=== PATIENT | male | born 1940 | race Caucasian/White ===

== ENCOUNTER 2017-01-18 05:42 | Day surgery (SDC) | payer MEDICARE ==
[2017-01-13 14:22] VITALS: BMI 27.4
[~2017-01-18 05:42] MED LIST: DEXAMETHASONE SOD PHOSPHATE 10 MG/ML 1 ML VIAL IV ONE; HEPARIN SODIUM,PORCINE 5,000 UNIT/ML 1 ML VIAL SQ ONE; HYDROmorphone 0.5 MG/0.5 ML SYRINGE IVP PRN; LACTATED RINGERS 1,000 ML IV SCH; MIDAZOLAM 2 MG/2 ML VIAL IV PRN; ONDANSETRON 4 MG/2 ML VIAL IVP ONE; ceFAZolin 2 GM in SODIUM CHLORIDE 0.9% 100 ML IVPB ONE
[2017-01-18] MEDS ORDERED: LIDOCAINE 1% 20 ML VIAL (10MG/ML) FOR IV START INTRADERMA ONE (06:25)
[2017-01-18 06:41] LABS: INR 1.3 (<1.2); Prothrombin Time 12.8 sec (9.0-12.0)
--- NOTE | 2017-01-18 08:10 | P.GSHP ---
History of Present Illness H&P Date: 01/18/17 Chief Complaint: Right inguinal hernia This is 76-year-old male referred from Dr. Amy solo. Patient had complaints of right inguinal pain. He was seen [facility] found have a reducible right inguinal hernia. 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, History of Any Multi-Drug Resistant Organisms: None Reported Past Surgical History: Cholecystectomy Additional Past Surgical History / Comment(s): cyst removed left testicle, juice cataracts, laser rt eye Past Anesthesia/Blood Transfusion Reactions: No Reported Reaction Smoking Status: Former smoker - Past Family History Mother Family Medical History: No Reported History Medications and Allergies Home Medications Medication Instructions Recorded Confirmed Type Alfuzosin HCl [Uroxatral ER] 10 mg PO DAILY 01/13/17 01/13/17 History Atenolol 6.25 mg PO QAM 01/13/17 01/13/17 History Atorvastatin [Lipitor] 40 mg PO DIRECTED 01/13/17 01/13/17 History Cholecalciferol (Vitamin D3) 2,000 unit PO DAILY 01/13/17 01/13/17 History [Vitamin D3] Diltiazem Cd [Cardizem Cd] 300 mg PO DAILY 01/13/17 01/13/17 History Fluticasone Propionate [Flovent 1 puff INHALATION BID 01/13/17 01/13/17 History Hfa 110mcg] Multivitamins, Thera [Multivitamin 1 tab PO DAILY 01/13/17 01/13/17 History (formulary)] OXcarbazepine [Trileptal] 300 mg PO BID 01/13/17 01/13/17 History Ubidecarenone [Co Q-10] 200 mg PO DAILY 01/13/17 01/13/17 History Warfarin [Coumadin] 2.5 mg PO SUWE 01/13/17 01/13/17 History Warfarin [Coumadin] 5 mg PO MOTUTHFRSA 01/13/17 01/13/17 History Allergies Allergy/AdvReac Type Severity Reaction Status Date / Time No Known Allergies Allergy Verified 01/13/17 14:06 Surgical - Exam Vital Signs Temp Pulse Resp BP Pulse Ox 97.8 F 61 18 171/75 95 01/18/17 06:17 01/18/17 06:17 01/18/17 06:17 01/18/17 06:17 01/18/17 06:17 - General well developed, no distress - Eyes PERRL - ENT normal pinna - Neck no masses - Respiratory normal expansion - Cardiovascular Rhythm: regular - Abdomen Abdomen: soft, non tender Hernia: inguinal - Genitourinary right Results - Labs Abnormal Lab Results - Last 24 Hours (Table) 01/18/17 Range/Units 06:27 PT 12.8 H (9.0-12.0) sec INR 1.3 H (<1.2) Assessment and Plan Plan: Right inguinal hernia. We'll perform laparoscopic robotic assistance repair.
[2017-01-18] MEDS ORDERED: MIDAZOLAM 2 MG/2 ML VIAL ONE (08:14)
[2017-01-18] MEDS ORDERED: ROCURONIUM BROMIDE 10 MG/ML 10 ML VIAL IV ONE (08:14)
[2017-01-18] MEDS ORDERED: GLYCOPYRROLATE 0.2 MG/ML 2 ML VIAL ONE (08:14)
[2017-01-18] MEDS ORDERED: SUCCINYLCHOLINE CHLORIDE 100 MG/5 ML SYR IV ONE (08:14)
[2017-01-18] MEDS ORDERED: NEOSTIGMINE 1 MG/ML 10 ML VIAL ONE (08:14)
[2017-01-18] MEDS ORDERED: HYDROmorphone (PF) 1 MG/ML ONE (08:14)
[2017-01-18] MEDS ORDERED: fentaNYL (PF) 50 MCG/ML 2 ML AMP ONE (08:14)
[2017-01-18] MEDS ORDERED: PROPOFOL 10 MG/ML 20 ML VIAL IV ONE (08:14)
[2017-01-18] MEDS ORDERED: BUPIVACAINE-EPI 0.5%-1:200,000 10 ML VIAL SQ ONE (08:51)
--- NOTE | 2017-01-18 09:37 | P.OP ---
Date of Procedure: 01/18/17 Preoperative Diagnosis: Right inguinal hernia Postoperative Diagnosis: Bilateral inguinal hernia Procedure(s) Performed: Laparoscopic robotic-assisted repair of bilateral inguinal hernia Anesthesia: IMTIAZ Surgeon: Patrick Fishman Estimated Blood Loss (ml): 5 Pathology: none sent Condition: stable Disposition: PACU Description of Procedure: The patient's placed on the operating table in the supine position. The patient received general anesthesia. The patient's abdomen was prepped and draped in usual sterile fashion. The skin was anesthetized 1% local Xylocaine at the incision sites. Using an 11 blade a skin incision was made at the umbilicus. The fascia was grasped with a [place] and then the peritoneal cavity was entered with the Veress needle. Position of the Veress needle was confirmed with a positive drop test. After adequate insufflation a 5 mm trocar was placed into the peritoneal cavity. The Laparoscope was placed the peritoneal cavity. And a robotic 8 mm trocar was placed in the right lateral position and then another 8 mm robotic trochars placed in the left lateral position. The original 5 mm trocar was exchanged for a 12 mm trocar. The patient was placed in reverse Trendelenburg and then the patient was docked to the robot. Next the peritoneum over top of the hernia was incised and then using blunt and sharp dissection and electrocautery the hernia sac was dissected free from the floor of the inguinal canal. The hernia sac was completely reduced into the peritoneal cavity. And then using the Pro media relations specialist mesh the hernia was repaired. The peritoneum was then sutured with 20V lock suture. Next the left inguinal hernia was repaired in identical fashion. The patient was then undocked the robot. The needle was withdrawn from the peritoneal cavity. The umbilical trocar site was closed with 0 Ethibond suture. The skin was closed interrupted 3-0 Monocryl suture. Dermabond dressing was applied. Patient was sent to recovery in stable condition.
[2017-01-18 10:10] VITALS: TEMP 98.2
[2017-01-18] MEDS ORDERED: KETOROLAC 30 MG/ML 1 ML VIAL IVP ONE (10:15)
[2017-01-18] MEDS ORDERED: ONDANSETRON 4 MG/2 ML VIAL IVP ONE (12:03)
[2017-01-18 12:56] VITALS: BP 138/76; PULSE 76; RESP 24
== END 2017-01-18 12:59 | disposition home or self-care (01) ==
LOC: OR 05:42
PROVIDERS: ATTEND Surgery
DX: K40.20 Bilateral inguinal hernia, without obstruction or gangrene, not specified as recurrent (principal); I48.91 Unspecified atrial fibrillation; Z79.01 Long term (current) use of anticoagulants; J45.909 Unspecified asthma, uncomplicated; K21.9 Gastro-esophageal reflux disease without esophagitis; E78.5 Hyperlipidemia, unspecified; I10 Essential (primary) hypertension; N42.9 Disorder of prostate, unspecified; G50.0 Trigeminal neuralgia; Z87.891 Personal history of nicotine dependence; Z79.51 Long term (current) use of inhaled steroids; Z79.899 Other long term (current) drug therapy; Z88.2 Allergy status to sulfonamides
CPT/HCPCS: 85610; 49650; C1781; J2250; J1644; J1100; J2710; J0690; J2405; J3010; J1885; J1170 ×2; J0330; J2704

== ENCOUNTER 2018-07-11 07:36 | Day surgery (SDC) | payer MEDICARE ==
[~2018-07-11 07:36] MED LIST changes: -HYDROmorphone 0.5 MG/0.5 ML SYRINGE IVP PRN; -MIDAZOLAM 2 MG/2 ML VIAL IV PRN; +MORPHINE SULFATE 4 MG/ML SYRINGE IV PRN; -ceFAZolin 2 GM in SODIUM CHLORIDE 0.9% 100 ML IVPB ONE; +ceFAZolin IN SWFI 2 GM/20 ML SYRINGE IVP ONE
[2018-07-11] MEDS ORDERED: LIDOCAINE 1% 20 ML VIAL (10MG/ML) FOR IV START INTRADERMA ONE (08:30)
[2018-07-11] MEDS ORDERED: MIDAZOLAM 2 MG/2 ML VIAL IV ONE (08:40)
--- NOTE | 2018-07-11 08:42 | P.GSHP ---
History of Present Illness H&P Date: 07/11/18 Chief Complaint: Recurrent right inguinal hernia This is a 78-year-old male who presents today for open repair of recurrent right inguinal hernia. Patient developed a tender mass in his right groin. 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 cyst removed left testicle, juice cataracts, laser rt eye Past Anesthesia/Blood Transfusion Reactions: No Reported Reaction Past Psychological History: No Psychological Hx Reported Smoking Status: Former smoker Past Alcohol Use History: Occasional Additional Past Alcohol Use History / Comment(s): quit smoking 2001, smoked for 40 yrs, 1 PPD Past Drug Use History: None Reported - Past Family History Mother Family Medical History: No Reported History Medications and Allergies Home Medications Medication Instructions Recorded Confirmed Type Alfuzosin HCl [Uroxatral ER] 5 mg PO QAM 01/13/17 07/07/18 History Atenolol 6.25 mg PO QAM 01/13/17 07/07/18 History Atorvastatin [Lipitor] 40 mg PO HS 01/13/17 07/07/18 History Cholecalciferol (Vitamin D3) 2,000 unit PO DAILY 01/13/17 07/07/18 History [Vitamin D3] Diltiazem Cd [Cardizem Cd] 300 mg PO QAM 01/13/17 07/07/18 History Fluticasone Propionate [Flovent 2 puff INHALATION BID 01/13/17 07/07/18 History Hfa 110mcg] Multivitamins, Thera [Multivitamin 1 tab PO DAILY 01/13/17 07/07/18 History (formulary)] OXcarbazepine [Trileptal] 450 mg PO QAM 01/13/17 07/07/18 History Ubidecarenone [Co Q-10] 200 mg PO DAILY 01/13/17 07/07/18 History Warfarin [Coumadin] 5 mg PO QAM 01/13/17 07/07/18 History Gabapentin [Neurontin] 300 mg PO HS 07/07/18 07/07/18 History Ibuprofen [Advil] 200 - 400 mg PO Q6HR PRN 07/07/18 07/07/18 History Sennosides [Senna] 8.6 mg PO DAILY PRN 07/07/18 07/07/18 History Allergies Allergy/AdvReac Type Severity Reaction Status Date / Time Sulfa (Sulfonamide Allergy Dyspnea Verified 07/11/18 08:15 Antibiotics) Surgical - Exam - General well developed, well nourished, no distress - Eyes PERRL - ENT normal pinna - Neck no masses - Respiratory normal expansion - Cardiovascular Rhythm: regular - Abdomen Abdomen: soft, non tender Hernia: inguinal (Recurrent right inguinal hernia) Assessment and Plan Assessment: Recurrent right internal hernia. We'll perform open repair.
[2018-07-11 08:51] LABS: Prothrombin Time 10.7 sec (9.0-12.0)
--- NOTE | 2018-07-11 08:54 | P.ONQ ---
Anesthesiology Proc Note - PNB - Peripheral Nerve Block Performed Right Transversus Abdominis Single Time Out Performed: Yes ([id number]) Procedure Start Time: 08:40 Procedure Stop Time: 08:48 Indication: Acute Post-Operative Pain, Dx/Pain Location (Abdominal pain), Requested by physician Sedation Type: Sedate with meaningful contact maintained Preparation: Sterile Prep Catheter: None Needle Types: On-Q Needle Size: 100mm (4") Needle Gauge: 21 Technique: Ultrasound Injectate: Other (see comment) (15ml 0.5% Ropivacaine + 10ml 2% Lidocaine with epi + 4mg Decadron) Blood Aspirated: No Pain Paresthesia on Injection Noted: No Resistance on Injection: Normal Events: Uneventful and Well Tolerated
[2018-07-11] MEDS ORDERED: KETOROLAC 30 MG/ML 1 ML VIAL ONE (09:15)
[2018-07-11] MEDS ORDERED: ePHEDrine SULFATE/0.9% NACL/PF 50 MG/5 ML SYRINGE IV ONE (09:15)
[2018-07-11] MEDS ORDERED: NEOSTIGMINE 1 MG/ML 10 ML VIAL ONE (09:15)
[2018-07-11] MEDS ORDERED: GLYCOPYRROLATE 0.2 MG/ML 2 ML VIAL ONE (09:15)
[2018-07-11] MEDS ORDERED: MIDAZOLAM 2 MG/2 ML VIAL ONE (09:15)
[2018-07-11] MEDS ORDERED: ROPIVACAINE 5 MG/ML 30 ML VIAL ONE (09:15)
[2018-07-11] MEDS ORDERED: ROCURONIUM BROMIDE 10 MG/ML 10 ML VIAL IV ONE (09:15)
[2018-07-11] MEDS ORDERED: fentaNYL (PF) 50 MCG/ML 2 ML AMP ONE (09:15)
[2018-07-11] MEDS ORDERED: PROPOFOL 10 MG/ML 20 ML VIAL IV ONE (09:15)
[2018-07-11] MEDS ORDERED: SUCCINYLCHOLINE CHLORIDE 100 MG/5 ML SYR IV ONE (09:15)
[2018-07-11] MEDS ORDERED: LIDOCAINE 1% INJ 10MG/ML (20 ML MDV) ONE (09:15)
[2018-07-11] MEDS ORDERED: BUPIVACAIN-EPI 0.5%-1:200,000 30 ML VIAL SQ ONE ×2 (09:34→09:54)
[2018-07-11 10:10] VITALS: TEMP 97.7
[2018-07-11] MEDS: HYDROmorphone 0.5 MG/0.5 ML SYRINGE IVP PRN ×2 (10:21→10:31)
[2018-07-11 10:49] VITALS: RESP 18
[2018-07-11 11:33] VITALS: BP 115/68; PULSE 54
--- NOTE | 2018-07-11 11:39 | P.OP ---
Date of Procedure: 07/11/18 Preoperative Diagnosis: Recurrent right inguinal hernia Postoperative Diagnosis: Recurrent right inguinal hernia Procedure(s) Performed: Open repair of recurrent right inguinal hernia Anesthesia: IMTIAZ Surgeon: Patrick Fishman Estimated Blood Loss (ml): 5 Pathology: none sent Condition: stable Disposition: PACU Description of Procedure: DESCRIPTION OF PROCEDURE: The patient was placed in the supine position after receiving adequate anesthesia. Patients groin was prepped and draped in the usual sterile fashion. A standard hernia incision was made and the subcutaneous tissues were divided with electrocautery. The fascia of the external oblique was exposed. A susan the fascia was made with #15 blade. The fascia was then opened with pair of Metzenbaum scissors. A Weitlaner retractor was placed in the wound and the cord structures were grasped and dissected free from the inguinal canal. A rubber Marcial drain was placed around the cord structures. The hernial sac was seen on the anterior-medial portion of the cord and this was dissected free from the cord. The hernia sac was then invaginated to the peritoneal cavity. Using blunt finger dissection, the preperitoneal space was dissected and then the Prolene hernial mesh plug was placed into the prepared space. The inferior leaf was expanded. The superior leaf was secured to the pubic tubercle using 2-0 Prolene suture. The lateral portion of the superior leaf was incised and cords tied and secured to the transversalis fascia using 2-0 Prolene suture. Fascia of the external oblique was then closed using #0 Vicryl suture. The Marcial drain was removed. The Scarpas fascia was then closed with 3-0 Vicryl suture and skin was closed with earl. The patient tolerated the procedure well.
== END 2018-07-11 12:32 | disposition home or self-care (01) ==
LOC: OR 07:36
PROVIDERS: ATTEND Surgery
DX: K40.91 Unilateral inguinal hernia, without obstruction or gangrene, recurrent (principal); I48.91 Unspecified atrial fibrillation; J45.909 Unspecified asthma, uncomplicated; K21.9 Gastro-esophageal reflux disease without esophagitis; E78.5 Hyperlipidemia, unspecified; I10 Essential (primary) hypertension; Z90.49 Acquired absence of other specified parts of digestive tract; N42.9 Disorder of prostate, unspecified; G50.0 Trigeminal neuralgia; Z87.891 Personal history of nicotine dependence; Z79.01 Long term (current) use of anticoagulants; Z79.51 Long term (current) use of inhaled steroids; Z79.899 Other long term (current) drug therapy; Z88.2 Allergy status to sulfonamides
CPT/HCPCS: 64486; 85610; 49520; C1781; J2250; J1644; J1100; J2710; J2405; J2001; J3010; J1885; J2795; J0330; J2704; J1170; J0690

== ENCOUNTER → 2019-10-24 | Outpatient (CLI) | payer MEDICARE ==
[2019-10-24 11:45] LABS: Basophils % (A) 1 %; Eosinophils # (A) 0.1 k/uL (0-0.7); Eosinophils % (A) 5 %; HCT 41.9 % (39.0-53.0); HGB 13.9 gm/dL (13.0-17.5); Lymphocytes # (A) 0.6 k/uL (1.0-4.8); Lymphocytes % (A) 22 %; MCH 31.3 pg (25.0-35.0); MCHC 33.1 g/dL (31.0-37.0); MCV 94.6 fL (80.0-100.0); Mean Platelet Volume 6.9; Monocytes # (A) 0.4 k/uL (0-1.0); Monocytes % (A) 14 %; Neutrophils # (A) 1.4 k/uL (1.3-7.7); Neutrophils % (A) 55 %; Platelet Count 246 k/uL (150-450); RBC 4.43 m/uL (4.30-5.90); RDW 13.3 % (11.5-15.5); WBC 2.6 k/uL (3.8-10.6)
== END | disposition home or self-care (01) ==
LOC: LABPAT 09:06
PROVIDERS: ATTEND Surgery
DX: Z01.818 Encounter for other preprocedural examination (principal); K43.0 Incisional hernia with obstruction, without gangrene
CPT/HCPCS: 36415; 85025; 93005

== ENCOUNTER 2019-10-31 08:38 | Day surgery (SDC) | payer MEDICARE ==
[2019-10-29 10:59] VITALS: BMI 28.3
[~2019-10-31 08:38] MED LIST changes: +ACETAMINOPHEN TAB 500 MG TAB PO ONE; +HYDROmorphone 0.5 MG/0.5 ML SYRINGE IVP PRN; +LIDOCAINE 1% (10MG/ML) FOR IV START INTRADERMA PRN; +MIDAZOLAM 2 MG/2 ML VIAL IV PRN; -MORPHINE SULFATE 4 MG/ML SYRINGE IV PRN; -ceFAZolin IN SWFI 2 GM/20 ML SYRINGE IVP ONE; +fentaNYL (PF) 50 MCG/ML 2 ML AMP IVP PRN
[2019-10-31] MEDS ORDERED: ONDANSETRON 4 MG/2 ML VIAL ONE ×2 (09:06→14:42)
[2019-10-31] MEDS ORDERED: ACETAMINOPHEN TAB 500 MG TAB ONE (09:06)
[2019-10-31] MEDS ORDERED: HEPARIN SODIUM,PORCINE 5,000 UNIT/ML 1 ML VIAL ONE (09:06)
[2019-10-31] MEDS ORDERED: LACTATED RINGERS 1,000 ML IV ONE ×3 (09:22→12:40)
[2019-10-31] MEDS ORDERED: LIDOCAINE 1% (10MG/ML) FOR IV START INTRADERMA ONE (09:23)
--- NOTE | 2019-10-31 09:34 | P.GSHP ---
History of Present Illness H&P Date: 10/31/19 Chief Complaint: Incisional hernia hernia This a 71-year-old male has developed an incisional hernia at his umbilicus. Patient rents today for laparoscopic robotic-assisted repair. Past Medical History Past Medical History: Atrial Fibrillation, Asthma, GERD/Reflux, Hyperlipidemia, Hypertension, Osteoarthritis (OA), Prostate Disorder, Sleep Apnea/CPAP/BIPAP Additional Past Medical History / Comment(s): Trigeminal nerve pain rt side of face. CPAP use as needed. History of Any Multi-Drug Resistant Organisms: None Reported Past Surgical History: Cholecystectomy, Hernia Repair Additional Past Surgical History / Comment(s): BILATERAL INGUINALREPAIRS, cyst removed from left testicle, bilateral cataracts removed, laser right eye tatum phillip. Past Anesthesia/Blood Transfusion Reactions: No Reported Reaction Past Psychological History: No Psychological Hx Reported Smoking Status: Former smoker Past Alcohol Use History: Occasional Additional Past Alcohol Use History / Comment(s): Quit smoking 2001, smoked for 40 yrs, 1 PPD. Past Drug Use History: None Reported - Past Family History Mother Family Medical History: No Reported History Medications and Allergies Home Medications Medication Instructions Recorded Confirmed Type Alfuzosin HCl [Uroxatral ER] 5 mg PO QAM 01/13/17 10/31/19 History Atorvastatin [Lipitor] 40 mg PO Q48H 01/13/17 10/31/19 History Diltiazem Cd [Cardizem Cd] 300 mg PO QAM 01/13/17 10/31/19 History Fluticasone Propionate [Flovent 2 puff INHALATION BID 01/13/17 10/31/19 History Hfa 110mcg] OXcarbazepine [Trileptal] 450 mg PO QAM 01/13/17 10/31/19 History Warfarin [Coumadin] 5 mg PO QAM 01/13/17 10/31/19 History Ibuprofen [Advil] 200 - 400 mg PO Q6HR PRN 07/07/18 10/31/19 History Sennosides [Senna] 8.6 mg PO DAILY PRN 07/07/18 10/31/19 History Acetaminophen [Tylenol Extra 500 mg PO Q4H PRN 10/29/19 10/31/19 History Strength] Atenolol 25 mg PO QAM 10/29/19 10/31/19 History Ergocalciferol [Vitamin D2] 50,000 unit PO FR 10/29/19 10/31/19 History Gabapentin [Neurontin] 400 mg PO HS 10/29/19 10/31/19 History Allergies Allergy/AdvReac Type Severity Reaction Status Date / Time Sulfa (Sulfonamide Allergy Dyspnea Verified 10/29/19 10:37 Antibiotics) Surgical - Exam Vital Signs Temp Pulse Resp BP Pulse Ox 96.4 F L 66 16 171/75 96 10/31/19 09:09 10/31/19 09:09 10/31/19 09:09 10/31/19 09:09 10/31/19 09:09 - General well developed, well nourished, no distress - Eyes PERRL - ENT normal pinna - Neck no masses - Respiratory normal expansion - Cardiovascular Rhythm: regular - Abdomen Abdomen: soft, non tender Hernia: incisional (3 cm incisional hernia) Assessment and Plan Assessment: Incisional hernia. We'll perform laparoscopic robotic-assisted repair.
[2019-10-31] MEDS ORDERED: PROPOFOL 10 MG/ML 20 ML VIAL IV ONE (11:36)
[2019-10-31] MEDS ORDERED: GLYCOPYRROLATE 0.2 MG/ML 2 ML VIAL ONE (11:36)
[2019-10-31] MEDS ORDERED: ROCURONIUM BROMIDE 10 MG/ML 5 ML VIAL IV ONE (11:36)
[2019-10-31] MEDS ORDERED: LIDOCAINE 1% INJ 10MG/ML (20 ML MDV) ONE (11:36)
[2019-10-31] MEDS ORDERED: SUCCINYLCHOLINE CHLORIDE 100 MG/5 ML SYR IV ONE (11:36)
[2019-10-31] MEDS ORDERED: HYDROmorphone (PF) 1 MG/ML ONE (11:36)
[2019-10-31] MEDS ORDERED: fentaNYL (PF) 50 MCG/ML 2 ML AMP ONE (11:36)
[2019-10-31] MEDS ORDERED: MIDAZOLAM 2 MG/2 ML VIAL ONE (11:36)
[2019-10-31] MEDS ORDERED: NEOSTIGMINE 1 MG/ML 10 ML VIAL ONE (11:36)
[2019-10-31] MEDS ORDERED: BUPIVACAIN-EPI 0.25%-1:200,000 30 ML VIAL SQ ONE (12:05)
--- NOTE | 2019-10-31 12:36 | P.OP ---
Date of Procedure: 10/31/19 Preoperative Diagnosis: Incisional hernia Postoperative Diagnosis: Incisional hernia Procedure(s) Performed: Laparoscopic robotic-assisted repair of incisional hernia Anesthesia: IMTIAZ Surgeon: Patrick Fishman Estimated Blood Loss (ml): 5 Pathology: none sent Condition: stable Disposition: PACU Description of Procedure: The patient was placed on the operating table in the supine position. He received general anesthesia. His abdomen was prepped and draped usual fashion. Using a 5 mm optical trocar under direct visualization the peritoneal cavity was entered in the left upper quadrant. The abdomen was then insufflated. The laparoscope was placed back into the perineal cavity. Next a 8 mm robotic trocar was placed in the left lower quadrant and a 12 mm robotic trocar was placed in the left lateral position. The original 5 mm trocar was exchanged for a 8 mm robotic trocar. The patient's placed in the left side up position. And the patient was docked to the robot. The incisional hernia was visualized. Using hook cautery the peritoneum over the incisional hernia was excised. The fascial opening was repaired using 0V LOC suture. Next a piece of 11 cm round ventral light ST mesh was placed into the. Cavity and secured with 2 OV lock suture. The patient was undocked the robot. The needles were retrieved. The fascia of the 12 mm trocar site was closed with 0 Ethibond suture. Skin was closed interrupted 3-0 Monocryl suture. Dermabond dressings was applied. Patient tolerated procedure well and was sent to recovery room stable condition.
[2019-10-31] MEDS ORDERED: HYDROmorphone 1 MG/ML 1 ML SYRINGE IVP ONE ×2 (12:50→13:10)
[2019-10-31] MEDS ORDERED: fentaNYL (PF) 50 MCG/ML 2 ML AMP IVP ONE (13:27)
[2019-10-31] MEDS ORDERED: HYDROcodone/APAP 5-325MG 1 EACH TAB PO ONE (14:01)
[2019-10-31 14:23] LABS: HCT 41.8 % (39.0-53.0); HGB 13.9 gm/dL (13.0-17.5); MCH 31.4 pg (25.0-35.0); MCHC 33.3 g/dL (31.0-37.0); MCV 94.4 fL (80.0-100.0); Mean Platelet Volume 7.7; Platelet Count 274 k/uL (150-450); RBC 4.43 m/uL (4.30-5.90); RDW 13.2 % (11.5-15.5); WBC 3.4 k/uL (3.8-10.6)
[2019-10-31] MEDS ORDERED: ONDANSETRON 4 MG/2 ML VIAL IVP ONE (14:45)
[2019-11-02 06:13] VITALS: BP 155/89; PULSE 63; RESP 16; TEMP 98.2
== END 2019-10-31 15:30 | disposition home or self-care (01) ==
LOC: OR 08:38
PROVIDERS: ATTEND Surgery
DX: K43.2 Incisional hernia without obstruction or gangrene (principal); I48.91 Unspecified atrial fibrillation; J45.909 Unspecified asthma, uncomplicated; K21.9 Gastro-esophageal reflux disease without esophagitis; E78.5 Hyperlipidemia, unspecified; I10 Essential (primary) hypertension; M19.90 Unspecified osteoarthritis, unspecified site; N42.9 Disorder of prostate, unspecified; G47.33 Obstructive sleep apnea (adult) (pediatric); G50.0 Trigeminal neuralgia; Z99.89 Dependence on other enabling machines and devices; Z90.49 Acquired absence of other specified parts of digestive tract; Z98.890 Other specified postprocedural states; Z87.19 Personal history of other diseases of the digestive system; Z87.438 Personal history of other diseases of male genital organs; Z98.41 Cataract extraction status, right eye; Z98.42 Cataract extraction status, left eye; Z87.891 Personal history of nicotine dependence; Z79.899 Other long term (current) drug therapy; Z79.51 Long term (current) use of inhaled steroids; Z79.01 Long term (current) use of anticoagulants; Z88.2 Allergy status to sulfonamides; Z97.2 Presence of dental prosthetic device (complete) (partial)
CPT/HCPCS: 49654; 85027; C1781; J2250; J1644; J2710; J0690; J2405; J2001; J3010; J1170; J0330; J2704

== ENCOUNTER → 2019-12-19 | Outpatient (CLI) | payer MEDICARE ==
--- NOTE | 2019-12-20 07:53 | US ---
EXAMINATION TYPE: US scrotum with doppler. TECHNIQUE: Grayscale and color Doppler Duplex imaging performed of the scrotum. DATE OF EXAM: 12/19/2019 COMPARISON: NONE CLINICAL HISTORY: 79-year-old male N43.3 Hydrocele. The patient states history of left sided hydrocel e for 30+ years FINDINGS: EXAM MEASUREMENTS: TESTICLES: Right Testicle: 2.8 x 1.7 x 1.4 cm, smaller in size with a 1.6 cm isoechoic to echogenic lesion with some irregular central hypoechogenicity located within the testicle. Left Testicle: 4.0 x 3.1 x 2.9 cm EPIDIDYMIS HEAD: Right Epididymis: 0.7 cm Left Epididymis: not seen Doppler performed to assess for testicular vascularity; good bilateral color flow and waveforms are s een. There is no evidence of testicular torsion. Presence of hydroceles: yes, moderate to large sized, septated on the left Presence of varicoceles: no IMPRESSION: 1. Asymmetrically smaller right testicle. There is a 1.6 cm mass within the testicle. Epidermoid cyst , intratesticular hematoma (if recent injury), segmental testicular infarct, granuloma, or carcinoma are differential considerations. Further urology evaluation recommended. 2. No sonographic evidence for testicular torsion. 3. Moderate to large complex left-sided hydrocele.
== END | disposition home or self-care (01) ==
LOC: RADUSWWP 15:56
PROVIDERS: ATTEND Surgery
DX: N43.3 Hydrocele, unspecified (principal)
CPT/HCPCS: 76870; 93975

== ENCOUNTER → 2021-03-20 | Outpatient (CLI) | payer MEDICARE ==
--- NOTE | 2021-03-20 11:25 | US ---
EXAMINATION TYPE: US scrotum with doppler. Grayscale and color Doppler Duplex imaging performed of t he scrotum. 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 history of hydrocele left testicle an d mass right testicle EXAM MEASUREMENTS: TESTICLES: Right Testicle: 2.7 x 1.4 x 2.0 cm Left Testicle: 5.0 x 2.8 x 3.2 cm EPIDIDYMIS HEAD: Right Epididymis: 0.9 cm Left Epididymis: not seen Doppler performed to assess for testicular vascularity; good bilateral color flow and waveforms are s een. *isoechoic/echogenic heterogeneous area right testicle = 1.2 x 1.0 x 1.5cm cystic areas within left scrotal region with largest = 4.2 x 5.0 x 4.1cm Presence of hydroceles: yes, fluid collection = 3.5cm left testicle Presence of varicoceles: no Stable asymmetrically smaller right testicle with round hyperechoic 1.2 cm intratesticular lesion red emonstrated without significant internal vascularity. Left testicle normal in size without focal intr atesticular mass. Persistent left scrotal fluid collection or hydrocele redemonstrated. Large thin-wa lled cysts in the left-sided epididymis again seen superior to left testicle. Comparison images show blood flow bilaterally more prominent on the left. IMPRESSION: Overall stable findings. Persistent left scrotal fluid collection or hydroceles without s ignificant interval change. Local mass effect redemonstrated. Normal Left epididymis not seen with ce rtainty. Persistent asymmetrically diminished size to right testicle with stable 1.5 cm avascular hyp erechoic area or mass. Differential includes epidermoid cyst, granuloma, old infarct, and carcinoma l ess likely but not excluded. Correlate clinically and with tumor markers.
== END | disposition home or self-care (01) ==
LOC: RADUSWWP 09:21
PROVIDERS: ATTEND Urology
DX: N50.89 Other specified disorders of the male genital organs (principal); D29.20 Benign neoplasm of unspecified testis
CPT/HCPCS: 76870; 93975

== ENCOUNTER → 2021-07-16 | Outpatient (CLI) | payer MEDICARE ==
--- NOTE | 2021-07-16 14:35 | P.CON ---
Consult Note - . Consult date: 07/16/21 Assessment/Plan:: HISTORY OF PRESENT ILLNESS: 81 yr old male presents with female inserter at side as a referral from Dr Crump/ Amy Dawson for R sided facial pain x 5 yrs secondary to R Trigeminal Neuralgia for an evaluation. Patient states his right-sided facial pain is 2 out of 10 in intensity, electric, "hit by a taser" sensation that waxes and wanes in intensity throughout the day. Pain has no provocative factors. Pain is relieved with medications (oxycodone, Neurontin), heat and acupuncture. Past Medical History: Asthma, Vitamin D Deficiency, CVA/TIA, GERD/Reflux, Hyperlipidemia, Hypertension, aFib, PVD, Prostate Disorder Past Surgical History: Bl Inguinal Hernia Repair, Left Testicle Cystectomy, BL Cataract Resections, R Eye Laser Treatment Social History: Current some day smoker, Occassional ETOH, No illict drug use. Lives with female inserter. Family History: Mother- No Reported History. Father- Myocardial Infarction ([place]) All: See list Meds: See list REVIEW OF ORGAN SYSTEMS: CONSTITUTIONAL: No fevers or chills. No recent weight loss. HEENT: No visual acuity loss, eye pain, difficulties with hearing. No nosebleeds. No difficulty swallowing. RESPIRATORY: Denies any troubles with breathing or dyspnea on exertion. CARDIOVASCULAR: Denies any chest pain, palpitations, or recent heart attacks. GASTROINTESTINAL: Denies fatty food intolerance. Has change in bowel habits and gas bloat. GENITOURINARY: Denies any blood in urine. Has increased urinary frequency. NEUROLOGICAL: + numbness and tingling along the distal extremities. No seizure disorders or headaches. MUSCULOSKELETAL: + back pain SKIN: No skin cancer. No rash. PSYCHIATRIC: Denies current depression or suicidal thoughts. ENDOCRINE: Denies current thyroid disorders. Denies any blood sugar glucose intolerance. HEME/LYMPHATIC: Denies any lumps and bumps around the neck. History of deep venous thrombosis. ALLERGY/IMMUNOLOGY: No immunoglobulin therapy. No immune deficiencies. BREAST: Denies current breast lumps, pain or nipple discharge. Physical Examinations : Constitutional : Cooperative , not in acute distress . HEENT: Neck supple. No Lymphadenopathy. Normal thyroid size . Eyes no ptosis , no icterus, no photophobia . Hearing intact. Normal oropharynx. No Thrush. Respiratory : Chest clear to auscultations bilaterally. No wheezing. No rhonchi. Cardiovascular : Regular rate and rhythm , S1 / S2. No S3 . No S4. Gastrointestinal : Abdomen soft. No tenderness. Bowel sounds x 4. No organomegaly . Genitourinary : Deferred. Neurologic : Cranial nerve II to XII intact. No focal neurological deficits. Psychiatric : alert & oriented x 3. Matching mood & appropriate affect. Judgment & insight intact. Lymphatic No Lymphadenopathy. Musculoskeletal : Cervical Spine Motor strength in the deltoid and biceps: Normal right side. Normal Left side Motor strength biceps and the wrist extensors: Normal right side . Normal left side Motor strength in the triceps muscle: Normal right side. Normal left side Deep tendon reflexes: Normal at the biceps. Normal at Brachioradialis. Normal at triceps Cervical facet loading test: positive bilaterally Spurling test: positive bilaterally Neck distraction test: positive bilaterally Vernon sign: positive bilaterally Lumbar spine Motor strength lower extremities ,thigh and legs 5/5 Right side , 5/5 Left side Deep tendon reflexes : Normal Knee Jerk. Normal Ankle Jerk Vertebral body tenderness over Lumbar facet Loading Test: positive Right / positive Left Range of motion of the lumbar spine Flexion 30 degrees, extension 10 degrees Straight Leg Raise test: Left/ Right positive at degree Barry test: positive right / positive left. Severe tenderness over the Sacroiliac joint on the Right / Left sides Gaenslen test: positive bilaterally Seated flexion test: positive bilaterally. Imaging: CT Angiogram of the Head and Neck from 01/14/20 reviewed. Assessment/ Plan : Recommendation of R Trigeminal Nerve Block. May need a series of injections to obtain optimal pain relief. Risks, benefits of procedure discussed and patient verbalized understanding. Denies medical history of diabetes. Admits to Coumadin use. Needs medical clearance to hold Coumadin prior to procedure. All questions answered. I have spent greater than 50 minutes on patient care today. Dr Reynoso was available by phone for the evaluation of this patient. The time was used to review the medical records including relevant urine studies and Prescription history (MAPs), review of the available imaging, evaluation and examination of the patient, coordination of care with the medical staff and if applicable referring physicians, as well as creation of the medical record PQRS Measure Charge Sheet PQRS Narrative: Smoking Status Former smoker Home Medications: Ambulatory Orders Alfuzosin HCl [Uroxatral ER] 10 mg PO QAM 01/13/17 Atorvastatin [Lipitor] 40 mg PO MOWETHSA 01/13/17 Diltiazem Cd [Cardizem CD] 300 mg PO QAM 01/13/17 Fluticasone Propionate [Flovent Hfa 110 mcg] 2 puff INHALATION RT-BID 01/13/17 OXcarbazepine [Trileptal] 300 mg PO TID 01/13/17 Warfarin [Coumadin] 5 mg PO HS 01/13/17 Acetaminophen [Tylenol Extra Strength] 500 mg PO Q4H PRN 10/29/19 Ergocalciferol [Vitamin D2 (DRISDOL)] 50,000 unit PO FR 10/29/19 Gabapentin [Neurontin] 400 mg PO TID 10/29/19 atenoloL 25 mg PO QAM 10/29/19 Aspirin 325 mg PO DAILY #90 tab 01/16/20 Pantoprazole Sodium [Protonix] 40 mg PO DAILY #30 tablet. 01/16/20
[2021-07-16 15:47] VITALS: BP 163/91; PULSE 62; RESP 18; TEMP 98
== END ==
LOC: PNWHC3 12:34
PROVIDERS: ATTEND Specialist
DX: G50.0 Trigeminal neuralgia (principal); J45.909 Unspecified asthma, uncomplicated; Z86.73 Personal history of transient ischemic attack (TIA), and cerebral infarction without residual deficits; E78.5 Hyperlipidemia, unspecified; I10 Essential (primary) hypertension; I48.91 Unspecified atrial fibrillation; Z86.79 Personal history of other diseases of the circulatory system; Z87.891 Personal history of nicotine dependence; Z88.2 Allergy status to sulfonamides
CPT/HCPCS: 99202; 99211

== ENCOUNTER → 2023-07-28 | Outpatient (CLI) | payer MEDICARE ==
[2023-07-28 10:19] VITALS: BP 149/87; PULSE 69; RESP 16; TEMP 97.6
--- NOTE | 2023-07-28 13:59 | P.PAINPG ---
PQRS Measure Charge Sheet Comment: HISTORY OF PRESENT ILLNESS: A 83 yr old male presents with female civil engineering designer at side for R sided facial pain > 2 yrs secondary to trigeminal neuralgia for an evaluation. Pt states pain is provoked at 8 /10 in intensity, predominantly axial, electric in character that waxes and wanes in intensity throughout the day, w occasional radiation of pain towards the R eye, nose and jaw. Pain has no provocative factors. Pain is relieved with acupuncture weekly x 2 yrs since Jun 2021 which ended in Jun 2023, medications, heat and acupuncture. Interventional procedures include DENIES Medications include Oxycodone, Neurontin 600mg #60 REVIEW OF ORGAN SYSTEMS: CONSTITUTIONAL: No fevers or chills. No recent weight loss. HEENT: No visual acuity loss, eye pain, difficulties with hearing. No nosebleeds. No difficulty swallowing. RESPIRATORY: Denies any troubles with breathing or dyspnea on exertion. CARDIOVASCULAR: Denies any chest pain, palpitations, or recent heart attacks. GASTROINTESTINAL: Denies fatty food intolerance. Has change in bowel habits and gas bloat. GENITOURINARY: Denies any blood in urine. Has increased urinary frequency. NEUROLOGICAL: + numbness and tingling along the distal extremities. No seizure disorders or headaches. MUSCULOSKELETAL: + back pain SKIN: No skin cancer. No rash. PSYCHIATRIC: Denies current depression or suicidal thoughts. ENDOCRINE: Denies current thyroid disorders. Denies any blood sugar glucose intolerance. HEME/LYMPHATIC: Denies any lumps and bumps around the neck. History of deep venous thrombosis. ALLERGY/IMMUNOLOGY: No immunoglobulin therapy. No immune deficiencies. BREAST: Denies current breast lumps, pain or nipple discharge. Physical Examinations : Constitutional : Cooperative , not in acute distress . HEENT: Neck supple. No Lymphadenopathy. Normal thyroid size . Eyes no ptosis , no icterus, no photophobia . Hearing intact. Normal oropharynx. No Thrush. Respiratory : Chest clear to auscultations bilaterally. No wheezing. No rhonchi. Cardiovascular : Regular rate and rhythm , S1 / S2. No S3 . No S4. Gastrointestinal : Abdomen soft. No tenderness. Bowel sounds x 4. No organomegaly . Genitourinary : Deferred. Neurologic : Cranial nerve II to XII intact. No focal neurological deficits. Psychiatric : alert & oriented x 3. Matching mood & appropriate affect. Judgment & insight intact. Lymphatic No Lymphadenopathy. Musculoskeletal : Cervical Spine Motor strength in the deltoid and biceps: Normal right side. Normal Left side Motor strength biceps and the wrist extensors: Normal right side . Normal left side Motor strength in the triceps muscle: Normal right side. Normal left side Deep tendon reflexes: Normal at the biceps. Normal at Brachioradialis. Normal at triceps Cervical facet loading test: positive bilaterally Spurling test: positive bilaterally Neck distraction test: positive bilaterally Vernon sign: positive bilaterally Lumbar spine Motor strength lower extremities ,thigh and legs 5/5 Right side , 5/5 Left side Deep tendon reflexes : Normal Knee Jerk. Normal Ankle Jerk Vertebral body tenderness over Lumbar facet Loading Test: positive Right / positive Left Range of motion of the lumbar spine Flexion 30 degrees, extension 10 degrees Straight Leg Raise test: Left/ Right po sitive at degree Barry test: positive right / positive left. Severe tenderness over the Sacroiliac joint on the Right / Left sides Gaenslen test: positive bilaterally Seated flexion test: positive bilaterally. Imaging: CT Angiogram of the Head and Neck from 01/14/20 reviewed. Assessment/ Plan : Recommendation of R Trigeminal Nerve Block #1. May need a series of injections to obtain optimal pain relief. Risks, benefits of procedure discussed and patient verbalized understanding. Denies medical history of diabetes. Admits to Coumadin use. Needs medical clearance from Dr Chapman to hold Coumadin prior to procedure. All questions answered. I have spent greater than 30 minutes on patient care today. Dr Reynoso was available by phone for the evaluation of this patient. The time was used to review the medical records including relevant urine studies and Prescription history (MAPs), review of the available imaging, evaluation and examination of the patient, coordination of care with the medical staff and if applicable referring physicians, as well as creation of the medical record PQRS Narrative: Smoking Status Former smoker Hx Alcohol Use (MH) No Home Medications: Ambulatory Orders Alfuzosin HCl [Uroxatral ER] 10 mg PO QAM 01/13/17 Atorvastatin [Lipitor] 40 mg PO MOWETHSA 01/13/17 Diltiazem Cd [Cardizem CD] 300 mg PO QAM 01/13/17 Fluticasone Propionate [Flovent Hfa 110 mcg] 2 puff INHALATION RT-BID 01/13/17 OXcarbazepine [Trileptal] 300 mg PO TID 01/13/17 Warfarin [Coumadin] 5 mg PO HS 01/13/17 Acetaminophen [Tylenol Extra Strength] 500 mg PO Q4H PRN 10/29/19 Ergocalciferol [Vitamin D2 (DRISDOL)] 50,000 unit PO FR 10/29/19 Gabapentin [Neurontin] 400 mg PO TID 10/29/19 atenoloL 25 mg PO QAM 10/29/19 Aspirin 325 mg PO DAILY #90 tab 01/16/20 Pantoprazole Sodium [Protonix] 40 mg PO DAILY #30 tablet. 01/16/20 Controlled Substance Measures - Controlled Substance Measures Is patient prescribed a controlled substance at discharge?: No
== END ==
LOC: PNWHC3 08:08
PROVIDERS: ATTEND Specialist
DX: G50.0 Trigeminal neuralgia (principal); R51.9 Headache, unspecified; Z87.891 Personal history of nicotine dependence; Z86.39 Personal history of other endocrine, nutritional and metabolic disease; Z88.2 Allergy status to sulfonamides
CPT/HCPCS: 99211

== ENCOUNTER 2023-09-13 07:25 | Day surgery (SDC) | payer MEDICARE ==
[2023-09-13 08:47] VITALS: RESP 16; TEMP 97.1
[2023-09-13 08:57] LABS: INR 1.1 (<1.2); Partial Thromboplastin Time 28.1 sec (22.0-30.0); Prothrombin Time 12.1 sec (10.0-12.5)
[2023-09-13] MEDS: LACTATED RINGERS 1,000 ML IV SCH (09:00)
[2023-09-13] MEDS ORDERED: fentaNYL (PF) 50 MCG/ML 2 ML AMP ONE (09:33)
[2023-09-13] MEDS ORDERED: DEXAMETHASONE SOD PHOSPHATE 10 MG/ML 1 ML VIAL ONE (09:33)
[2023-09-13] MEDS ORDERED: MIDAZOLAM 2 MG/2 ML VIAL ONE (09:33)
[2023-09-13] MEDS ORDERED: IOPAMIDOL M200 10 ML VIAL ONE (09:33)
--- NOTE | 2023-09-13 09:51 | P.PCN ---
Date of Procedure: 09/13/23 Procedure(s) Performed: PREOPERATIVE DIAGNOSIS : 1-right side trigeminal neuralgia POSTOPERATIVE DIAGNOSIS: 1-right side trigeminal neuralgia PROCEDURE: Right side trigeminal nerve block under fluoroscopy guidance(fluoroscopy images available in the radiology Department ) ANESTHESIA: moderate sedation with intravenous Versed 1 mg and Fentanyl 50 mcg. (sedations start time 0 933,end time 09:39 ) EBL: Minimal COMPLICATION: None PROCEDURE INDICATION: Chronic right-sided facial pain secondary to right side trigeminal nerve neuralgia, unresponsive to conservative treatment. PROCEDURE DESCRIPTION: the patient was seen and identified in the preop holding area , risks and benefits and possible complications of the procedure and alternative were discussed with the patient, and the patient agreed to proceed with the procedure and signed the consent and vital signs monitored during the procedure and fluoroscopy was used to maximize the benefit and accuracy of the needle placement, and sedation was given to decrease patient anxiety, patient was taken to the procedure room and placed in supine position vital signs monitored in the Right side of the face prepped with chlorhexidine X3 , cold infiltration of the skin and subcutaneous tissue with lidocaine 1% 2 mL 1 inch lateral to the opening of the mouth on the right side,then 22 inch Quincke type spinal needle advanced slowly under fluoroscopy and placed at the foraminal oval on the right side needle placement confirmed with AP oblique and lateral view and after appropriate needle placement confirmed, and after negative aspiration for heme and CSF and there was no paresthesia 15 mg Dexamethasone injected after negative aspiration the needle subsequently removed . At the end of the procedure and the needles removed and a bandage applied after the skin was cleaned the cleaning solution patient taken to recovery room in stable condition and monitors in the recovery room for 20-30 minutes and discharged home in stable condition after discharge criteria met and patient will follow up with the pain clinic in 2-4 weeks
[2023-09-13] MEDS: LACTATED RINGERS 1,000 ML IV ONE (09:53)
--- NOTE | 2023-09-13 10:06 | FL ---
EXAMINATION TYPE: FL guided pain mgmt statistic Intraoperative/procedural fluoroscopic services were provided. Total fluoroscopy time is 3.0 seconds with a total of 2 submitted images to PACS. Please se e the operative/procedural note for further details. DAP: [id number] mGym2
[2023-09-13 10:38] VITALS: BP 138/72; PULSE 65
== END 2023-09-13 10:15 | disposition home or self-care (01) ==
LOC: ORPAIN 07:25
PROVIDERS: ATTEND Specialist
DX: G50.0 Trigeminal neuralgia (principal); I48.91 Unspecified atrial fibrillation; Z79.01 Long term (current) use of anticoagulants; Z88.2 Allergy status to sulfonamides
CPT/HCPCS: 85610; 85730; 64400; J2250; J1100; J3010; Q9966

== ENCOUNTER → 2023-10-03 | Outpatient (CLI) | payer MEDICARE ==
[2023-10-03 08:04] VITALS: BP 157/93; PULSE 73; RESP 18
--- NOTE | 2023-10-03 15:00 | P.PAINPG ---
PQRS Measure Charge Sheet Comment: HISTORY OF PRESENT ILLNESS: A 83 yr old male presents with female wrapper hand at side for R sided facial pain > 2 yrs secondary to trigeminal neuralgia for an evaluation s/p R Trigeminal Nerve Block #1. Pt states he experienced 50 % pain relief x 3 wks s/p procedure. Pt states pain is provoked at 6 /10 in intensity, predominantly axial, electric in character that waxes and wanes in intensity throughout the day, w occasional radiation of pain towards the R eye, nose and jaw. Pain has no provocative factors. Pain is relieved with acupuncture weekly x 2 yrs since Jun 2021 which ended in Jun 2023, medications, heat and manual massage. Interventional procedures include R Trigeminal Nerve Block x1 Medications include Oxycodone, Neurontin 600mg #60 REVIEW OF ORGAN SYSTEMS: CONSTITUTIONAL: No fevers or chills. No recent weight loss. HEENT: No visual acuity loss, eye pain, difficulties with hearing. No nosebleeds. No difficulty swallowing. RESPIRATORY: Denies any troubles with breathing or dyspnea on exertion. CARDIOVASCULAR: Denies any chest pain, palpitations, or recent heart attacks. GASTROINTESTINAL: Denies fatty food intolerance. Has change in bowel habits and gas bloat. GENITOURINARY: Denies any blood in urine. Has increased urinary frequency. NEUROLOGICAL: + numbness and tingling along the distal extremities. No seizure disorders or headaches. MUSCULOSKELETAL: + back pain SKIN: No skin cancer. No rash. PSYCHIATRIC: Denies current depression or suicidal th oughts. ENDOCRINE: Denies current thyroid disorders. Denies any blood sugar glucose intolerance. HEME/LYMPHATIC: Denies any lumps and bumps around the neck. History of deep venous thrombosis. ALLERGY/IMMUNOLOGY: No immunoglobulin therapy. No immune deficiencies. BREAST: Denies current breast lumps, pain or nipple discharge. Physical Examinations : Constitutional : Cooperative , not in acute distress . HEENT: Neck supple. No Lymphadenopathy. Normal thyroid size . Eyes no ptosis , no icterus, no photophobia . Hearing intact. Normal oropharynx. No Thrush. Respiratory : Chest clear to auscultations bilaterally. No wheezing. No rhonchi. Cardiovascular : Regular rate and rhythm , S1 / S2. No S3 . No S4. Gastrointestinal : Abdomen soft. No tenderness. Bowel sounds x 4. No organomegaly . Genitourinary : Deferred. Neurologic : Cranial nerve II to XII intact. No focal neurological deficits. Psychiatric : alert & oriented x 3. Matching mood & appropriate affect. Judgment & insight intact. Lymphatic No Lymphadenopathy. Musculoskeletal : Cervical Spine Motor strength in the deltoid and biceps: Normal right side. Normal Left side Motor strength biceps and the wrist extensors: Normal right side . Normal left side Motor strength in the triceps muscle: Normal right side. Normal left side Deep tendon reflexes: Normal at the biceps. Normal at Brachioradialis. Normal at triceps Cervical facet loading test: positive bilaterally Spurling test: positive bilaterally Neck distraction test: positive bilaterally Vernon sign: positive bilaterally Lumbar spine Motor strength lower extremities ,thigh and legs 5/5 Right side , 5/5 Left side Deep tendon reflexes : Normal Knee Jerk. Normal Ankle Jerk Vertebral body tenderness over Lumbar facet Loading Test: positive Right / positive Left Range of motion of the lumbar spine Flexion 30 degrees, extension 10 degrees Straight Leg Raise test: Left/ Right positive at degree Barry test: positive right / positive left. Severe tenderness over the Sacroiliac joint on the Right / Left sides Gaenslen test: positive bilaterally Seated flexion test: positive bilaterally. Imaging: CT Angiogram of the Head and Neck from 01/14/20 reviewed. Assessment/ Plan : Recommendation of R Trigeminal Nerve Block #2. May need a series of injections to obtain optimal pain relief. Risks, benefits of procedure discussed and patient verbalized understanding. Denies medical history of diabetes. Admits to Coumadin use. Needs medical clearance from Dr Chapman to hold Coumadin prior to procedure. All questions answered. I have spent greater than 30 minutes on patient care today. Dr Reynoso was available by phone for the evaluation of this patient. The time was used to review the medical records including relevant urine studies and Prescription history (MAPs), review of the available imaging, evaluation and examination of the patient, coordination of care with the medical staff and if applicable referring physicians, as well as creation of the medical record PQRS Narrative: Smoking Status Former smoker Hx Alcohol Use (MH) No Home Medications: Ambulatory Orders Alfuzosin HCl [Uroxatral ER] 10 mg PO QAM 01/13/17 Atorvastatin [Lipitor] 40 mg PO MOWETHSA 01/13/17 Diltiazem Cd [Cardizem CD] 300 mg PO QAM 01/13/17 Fluticasone Propionate [Flovent Hfa 110 mcg] 2 puff INHALATION RT-BID 01/13/17 OXcarbazepine [Trileptal] 300 mg PO TID 01/13/17 Warfarin [Coumadin] 5 mg PO HS 01/13/17 Acetaminophen [Tylenol Extra Strength] 500 mg PO Q4H PRN 10/29/19 Ergocalciferol [Vitamin D2 (DRISDOL)] 50,000 unit PO FR 10/29/19 Gabapentin [Neurontin] 400 mg PO TID 10/29/19 atenoloL 25 mg PO QAM 10/29/19 Aspirin 325 mg PO DAILY #90 tab 01/16/20 Controlled Substance Measures - Controlled Substance Measures Is patient prescribed a controlled substance at discharge?: No
== END ==
LOC: PNWHC3 07:40
PROVIDERS: ATTEND Specialist
DX: G50.0 Trigeminal neuralgia (principal); Z87.891 Personal history of nicotine dependence; Z88.2 Allergy status to sulfonamides
CPT/HCPCS: 99211

== ENCOUNTER 2023-10-18 08:29 | Day surgery (SDC) | payer MEDICARE ==
[2023-10-18] MEDS: IV FLUID CONTINUATION 1,000 ML IV ONE ×2 (08:59→10:37)
[2023-10-18 09:08] VITALS: TEMP 96.6
[2023-10-18] MEDS ORDERED: LACTATED RINGERS 1,000 ML IV SCH (09:23)
[2023-10-18 09:30] LABS: INR 1.2 (<1.2); Prothrombin Time 13.1 sec (10.0-12.5)
[2023-10-18] MEDS ORDERED: MIDAZOLAM 2 MG/2 ML VIAL ONE (10:10)
[2023-10-18] MEDS ORDERED: ROPIVACAINE 5MG/ML 20ML VIAL ONE (10:10)
[2023-10-18] MEDS ORDERED: fentaNYL (PF) 50 MCG/ML 2 ML AMP ONE (10:10)
[2023-10-18] MEDS ORDERED: DEXAMETHASONE SOD PHOSPHATE 10 MG/ML 1 ML VIAL ONE (10:10)
[2023-10-18 10:40] VITALS: RESP 16
[2023-10-18 11:06] VITALS: BP 150/74; PULSE 63
--- NOTE | 2023-10-18 11:34 | FL ---
EXAMINATION TYPE: FL guided pain mgmt statistic Intraoperative/procedural fluoroscopic services were provided. Total fluoroscopy time is 53.4 seconds with a total of 2 submitted images to PACS. Please s ee the operative/procedural note for further details. DAP: [id number] mGym2
--- NOTE | 2023-10-18 12:23 | P.PCN ---
Description of Procedure: PREOPERATIVE DIAGNOSIS : Right trigeminal neuralgia POSTOPERATIVE DIAGNOSIS: Right trigeminal neuralgia PROCEDURE: Left/Right trigeminal nerve block under fluoroscopy guidance(fluoroscopy images available in the radiology Department ) ANESTHESIA: moderate sedation with intravenous Versed and Fentanyl . Continuous pulse ox, EKG, blood pressure, verbal communication was maintained with the patient. EBL: Minimal. PROCEDURE INDICATION: Chronic facial pain secondary to trigeminal nerve neuralgia, unresponsive to conservative treatment. Discussed with the patient procedure, possible complications which may include infection, bleeding, nerve damage, brain hemorrhage and ultimate . Patient understands, all questions were answered. PROCEDURE DESCRIPTION: After getting consent patient in OR in supine position. It was stabilized with putting on a donut. Under fluoroscope midline AP view was obtained. Then fluoroscope was moved caudad to get submental view of the skull. Fluoroscope was then moved to get oblique view to get the foramen overle appearing between maxilla and the anterior border of the mandible. Fluoroscope was further fine-tuned with caudad/cranial view to get the biggest view of the forearm and ovale. After prepping the skin with chlorhexidine, draping and subcutaneous injection of 1% lidocaine., A 22-gauge spinal needle was introduced under tunnel vision of the fluoroscope towards the edge of the foramen ovele. While needle insertion, double gloves were used and 1 finger was put in the oral cavity to make sure the needle did not enter the oral cavity. The needle was stopped as the tip touched the edge of the foramen ovale without entering. Lateral view of the skull showed the tip of the needle near the junction of the upper border of petrous part of temporal bone and clivus slope. After needle position confirmation with fluoroscope, after negative aspiration for blood, CSF, air, 20 mg of Decadron was injected with intermittent aspiration and injection. This was taken out after the injection. DISPOSITION. Patient tolerated the procedure well. No complication. Patient was discharged home in stable condition.
== END 2023-10-18 11:12 | disposition home or self-care (01) ==
LOC: ORPAIN 08:29
PROVIDERS: ATTEND Pain Medicine Interventional Pain Medicine
DX: G50.0 Trigeminal neuralgia (principal); G89.29 Other chronic pain; Z88.2 Allergy status to sulfonamides; Z79.01 Long term (current) use of anticoagulants; Z79.899 Other long term (current) drug therapy
CPT/HCPCS: 85610; 64400; 99152; J2250; J1100; J3010; J2795

== ENCOUNTER → 2023-11-02 | Outpatient (CLI) | payer MEDICARE ==
[2023-11-02 10:20] VITALS: BP 151/85; PULSE 54; RESP 16; TEMP 97.1
--- NOTE | 2023-11-02 13:58 | P.PAINPG ---
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 Pt states he experienced 50 % pain relief x 3 wks s/p procedure. Pt states pain is provoked at 7 /10 in intensity, predominantly axial, electric in character that waxes and wanes in intensity throug-hout the day, w occasional radiation of pain towards the R eye, nose and jaw. Pain has no provocative factors. Pain is relieved with acupuncture weekly x 2 yrs since Jun 2021 which ended in Jun 2023, medications, heat and manual massage. Interventional procedures include BL Trigeminal Nerve Block x2 Medications include Oxycodone, Neurontin 600mg #60 REVIEW OF ORGAN SYSTEMS: CONSTITUTIONAL: No fevers or chills. No recent weight loss. HEENT: No visual acuity loss, eye pain, difficulties with hearing. No nosebleeds. No difficulty swallowing. RESPIRATORY: Denies any troubles with breathing or dyspnea on exertion. CARDIOVASCULAR: Denies any chest pain, palpitations, or recent heart attacks. GASTROINTESTINAL: Denies fatty food intolerance. Has change in bowel habits and gas bloat. GENITOURINARY: Denies any blood in urine. Has increased urinary frequency. NEUROLOGICAL: + numbness and tingling along the distal extremities. No seizure disorders or headaches. MUSCULOSKELETAL: + back pain SKIN: No skin cancer. No rash. PSYCHIATRIC: Denies current depression or suicidal thoughts. ENDOCRINE: Denies current thyroid disorders. Denies any blood sugar glucose intolerance. HEME/LYMPHATIC: Denies any lumps and bumps around the neck. History of deep venous thrombosis. ALLERGY/IMMUNOLOGY: No immunoglobulin therapy. No immune deficiencies. BREAST: Denies current breast lumps, pain or nipple discharge. Physical Examinations : Constitutional : Cooperative , not in acute distress . HEENT: Neck supple. No Lymphadenopathy. Normal thyroid size . Eyes no ptosis , no icterus, no photophobia . Hearing intact. Normal oropharynx. No Thrush. Respiratory : Chest clear to auscultations bilaterally. No wheezing. No rhonchi. Cardiovascular : Regular rate and rhythm , S1 / S2. No S3 . No S4. Gastrointestinal : Abdomen soft. No tenderness. Bowel sounds x 4. No organomegaly . Genitourinary : Deferred. Neurologic : Cranial nerve II to XII intact. No focal neurological deficits. Psychiatric : alert & oriented x 3. Matching mood & appropriate affect. Judgment & insight intact. Lymphatic No Lymphadenopathy. Musculoskeletal : Cervical Spine Motor strength in the deltoid and biceps: Normal right side. Normal Left side Motor strength biceps and the wrist extensors: Normal right side . Normal left side Motor strength in the triceps muscle: Normal right side. Normal left side Deep tendon reflexes: Normal at the biceps. Normal at Brachioradialis. Normal at triceps Cervical facet loading test: positive bilaterally Spurling test: positive bilaterally Neck distraction test: positive bilaterally Vernon sign: positive bilaterally Lumbar spine Motor strength lower extremities ,thigh and legs 5/5 Right side , 5/5 Left side Deep tendon reflexes : Normal Knee Jerk. Normal Ankle Jerk Vertebral body tenderness over Lumbar facet Loading Test: positive Right / positive Left Range of motion of the lumbar spine F lexion 30 degrees, extension 10 degrees Straight Leg Raise test: Left/ Right positive at degree Barry test: positive right / positive left. Severe tenderness over the Sacroiliac joint on the Right / Left sides Gaenslen test: positive bilaterally Seated flexion test: positive bilaterally. Imaging: CT Angiogram of the Head and Neck from 01/14/20 reviewed Assessment/ Plan : Recommendation of R Trigeminal Nerve Block #3. May need a series of injections to obtain optimal pain relief. Risks, benefits of procedure discussed and patient verbalized understanding. Protocol for discontinuation/ continuation of medications cesar procedure discussed. May need to DC neurontin and have trial of pregabalin. All questions answered. I have spent greater than 30 minutes on patient care today. Dr Reynoso was available by phone for the evaluation of this patient. The time was used to review the medical records including relevant urine studies and Prescription history (MAPs), review of the available imaging, evaluation and examination of the patient, coordination of care with the medical staff and if applicable referring physicians, as well as creation of the medical record - Pain Location Right Jaw Non-Pharmacological Interventions: Heat Pharmacological Interventions: Block, PRN Medication PQRS Narrative: Smoking Status Former smoker Hx Alcohol Use (MH) No Home Medications: Ambulatory Orders Alfuzosin HCl [Uroxatral ER] 10 mg PO QAM 01/13/17 Atorvastatin [Lipitor] 40 mg PO MOWETHSA 01/13/17 Diltiazem Cd [Cardizem CD] 300 mg PO QAM 01/13/17 Fluticasone Propionate [Flovent Hfa 110 mcg] 2 puff INHALATION RT-BID 01/13/17 OXcarbazepine [Trileptal] 300 mg PO TID 01/13/17 Warfarin [Coumadin] 5 mg PO HS 01/13/17 Acetaminophen [Tylenol Extra Strength] 500 mg PO Q4H PRN 10/29/19 Ergocalciferol [Vitamin D2 (DRISDOL)] 50,000 unit PO FR 10/29/19 Gabapentin [Neurontin] 400 mg PO TID 10/29/19 atenoloL 25 mg PO QAM 10/29/19 Aspirin 325 mg PO DAILY #90 tab 01/16/20 Controlled Substance Measures - Controlled Substance Measures Is patient prescribed a controlled substance at discharge?: No
== END ==
LOC: PNWHC3 09:14
PROVIDERS: ATTEND Specialist
DX: G50.0 Trigeminal neuralgia (principal); Z87.891 Personal history of nicotine dependence; Z88.2 Allergy status to sulfonamides
CPT/HCPCS: 99211

== ENCOUNTER → 2024-02-09 | Day surgery (SDC) | payer MEDICARE ==
[~2024-02-09] MED LIST changes: -ACETAMINOPHEN TAB 500 MG TAB PO ONE; -DEXAMETHASONE SOD PHOSPHATE 10 MG/ML 1 ML VIAL IV ONE; +DEXAMETHASONE SOD PHOSPHATE 10 MG/ML 1 ML VIAL ONE; -HEPARIN SODIUM,PORCINE 5,000 UNIT/ML 1 ML VIAL SQ ONE; -HYDROmorphone 0.5 MG/0.5 ML SYRINGE IVP PRN; +IOPAMIDOL M200 10 ML VIAL ONE; -LACTATED RINGERS 1,000 ML IV SCH; -LIDOCAINE 1% (10MG/ML) FOR IV START INTRADERMA PRN; -MIDAZOLAM 2 MG/2 ML VIAL IV PRN; +MIDAZOLAM 2 MG/2 ML VIAL ONE; -ONDANSETRON 4 MG/2 ML VIAL IVP ONE; -fentaNYL (PF) 50 MCG/ML 2 ML AMP IVP PRN; +fentaNYL (PF) 50 MCG/ML 2 ML AMP ONE
[2024-02-09 07:31] VITALS: TEMP 97
[2024-02-09] MEDS: IV FLUID CONTINUATION 1,000 ML IV ONE ×2 (07:32→08:32)
[2024-02-09] MEDS: LACTATED RINGERS 1,000 ML IV SCH (07:32)
[2024-02-09 07:35] LABS: Glucose,Whole Blood 84 mg/dL (70-110)
[2024-02-09 08:01] LABS: INR 1.4 (<1.2); Prothrombin Time 14.6 sec (10.0-12.5)
--- NOTE | 2024-02-09 08:28 | P.PCN ---
Date of Procedure: 02/09/24 Procedure(s) Performed: PREOPERATIVE DIAGNOSIS : 1-right side trigeminal neuralgia POSTOPERATIVE DIAGNOSIS: 1-right side trigeminal neuralgia PROCEDURE: Right side trigeminal nerve block under fluoroscopy guidance(fluoroscopy images available in the radiology Department ) ANESTHESIA: moderate sedation with intravenous Versed 1 mg and Fentanyl 50 mcg. (sedations start time 08:14,end time 08:23 ) EBL: Minimal COMPLICATION: None PROCEDURE INDICATION: Chronic right-sided facial pain secondary to right side trigeminal nerve neuralgia, unresponsive to conservative treatment. PROCEDURE DESCRIPTION: the patient was seen and identified in the preop holding area , risks and benefits and possible complications of the procedure and alternative were discussed with the patient, and the patient agreed to proceed with the procedure and signed the consent and vital signs monitored during the procedure and fluoroscopy was used to maximize the benefit and accuracy of the needle placement, and sedation was given to decrease patient anxiety, patient was taken to the procedure room and placed in supine position vital signs monitored in the Right side of the face prepped with chlorhexidine X3 , cold infiltration of the skin and subcutaneous tissue with lidocaine 1% 2 mL 1 inch lateral to the opening of the mouth on the right side,then 22 inch Quincke type spinal needle advanced slowly under fluoroscopy and placed at the foraminal oval on the right side needle placement confirmed with AP oblique and lateral view and after appropriate needle placement confirmed, and after negative aspiration for heme and CSF and there was no paresthesia , [place] 200 , half mL injected and showed positive spread in the foramine ovale , and the trigeminal nerve distributions ,then 15 mg Dexamethasone injected after negative aspiration the needle subsequently removed . At the end of the procedure and the needles removed and a bandage applied after the skin was cleaned the cleaning solution patient taken to recovery room in stable condition and monitors in the recovery room for 20-30 minutes and discharged home in stable condition after discharge criteria met and patient will follow up with the pain clinic in 2-4 weeks
[2024-02-09 09:05] LABS: Glucose,Whole Blood 121 mg/dL (70-110)
[2024-02-09 09:09] VITALS: BP 128/65; PULSE 58; RESP 14
--- NOTE | 2024-02-09 10:05 | FL ---
EXAMINATION TYPE: FL guided pain mgmt statistic DATE OF EXAM: 02/09/2024 8:39 AM COMPARISON: Pre Operative Images if available both CT/MRI or plain film CLINICAL INDICATION: Male, 84 years old with history of Rt Trigeminal Nerve Blk; TECHNIQUE: FL guided pain mgmt statistic, multiple fluoroscopic images provided for procedure. Total fluoroscopy time: 6 seconds Total submitted images to PACS: 1 DAP: [id number] mGym2 Gycm2 uGym2 cGycm2 or equivalent. FINDINGS: Fluoroscopic images during injection for pain management demonstrate multilevel degeneration changes throughout the spine. No evidence for fracture. No acute process identified. IMPRESSION: 1. No evidence for intraoperative complication. 2. Please see the operative/procedural note for further details. [facility], , 02/09/2024 10:03 AM
== END ==
LOC: ORPAIN 06:54
PROVIDERS: ATTEND Specialist
DX: G50.0 Trigeminal neuralgia
CPT/HCPCS: 64400; 85610

== ENCOUNTER → 2024-03-14 | Outpatient (CLI) | payer MEDICARE ==
[2024-03-14 09:54] VITALS: BP 139/78; PULSE 64; RESP 17; TEMP 97.6
--- NOTE | 2024-03-14 14:18 | P.PAINPG ---
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 Pt states he experienced 40 % pain relief x 4 wks s/p procedure. Pt states pain is provoked at 7-8 /10 in intensity, predominantly axial, electric in character that waxes and wanes in intensity throughout the day, w occasional radiation of pain towards the R eye, nose and jaw. Pain has no provocative factors. Pain is relieved with acupuncture weekly x 2 yrs since Jun 2021 which ended in Jun 2023, medications, heat and manual massage. Interventional procedures include BL Trigeminal Nerve Block x3 Medications include Oxycodone, Neurontin 600mg #60 REVIEW OF ORGAN SYSTEMS: CONSTITUTIONAL: No fevers or chills. No recent weight loss. HEENT: No visual acuity loss, eye pain, difficulties with hearing. No nosebleeds. No difficulty swallowing. RESPIRATORY: Denies any troubles with breathing or dyspnea on exertion. CARDIOVASCULAR: Denies any chest pain, palpitations, or recent heart attacks. GASTROINTESTINAL: Denies fatty food intolerance. Has change in bowel habits and gas bloat. GENITOURINARY: Denies any blood in urine. Has increased urinary frequency. NEUROLOGICAL: + numbness and tingling along the distal extremities. No seizure disorders or headaches. MUSCULOSKELETAL: + back pain SKIN: No skin cancer. No rash. PSYCHIATRIC: Denies current depression or suicidal thoughts. ENDOCRINE: Denies current thyroid disorders. Denies any blood sugar glucose intolerance. HEME/LYMPHATIC: Denies any lumps and bumps around the neck. History of deep venous thrombosis. ALLERGY/IMMUNOLOGY: No immunoglobulin therapy. No immune deficiencies. BREAST: Denies current breast lumps, pain or nipple discharge. Physical Examinations : Constitutional : Cooperative , not in acute distress . HEENT: Neck supple. No Lymphadenopathy. Normal thyroid size . Eyes no ptosis , no icterus, no photophobia . Hearing intact. Normal oropharynx. No Thrush. Respiratory : Chest clear to auscultations bilaterally. No wheezing. No rhonchi. Cardiovascular : Regular rate and rhythm , S1 / S2. No S3 . No S4. Gastrointestinal : Abdomen soft. No tenderness. Bowel sounds x 4. No organomegaly . Genitourinary : Deferred. Neurologic : Cranial nerve II to XII intact. No focal neurological deficits. Psychiatric : alert & oriented x 3. Matching mood & appropriate affect. Judgment & insight intact. Lymphatic No Lymphadenopathy. Musculoskeletal : Cervical Spine Motor strength in the deltoid and biceps: Normal right side. Normal Left side Motor strength biceps and the wrist extensors: Normal right side . Normal left side Motor strength in the triceps muscle: Normal right side. Normal left side Deep tendon reflexes: Normal at the biceps. Normal at Brachioradialis. Normal at triceps Cervical facet loading test: positive bilaterally Spurling test: positive bilaterally Neck distraction test: positive bilaterally Vernon sign: positive bilaterally Lumbar spine Motor strength lower extremities ,thigh and legs 5/5 Right side , 5/5 Left side Deep tendon reflexes : Normal Knee Jerk. Normal Ankle Jerk Vertebral body tenderness over Lumbar facet Loading Test: positive Right / positive Left Range of motion of the lumbar spine Flexion 30 degrees, extension 10 degrees Straight Leg Raise test: Left/ Right positive at degree Barry test: positive right / positive left. Severe tenderness over the Sacroiliac joint on the Right / Left sides Gaenslen test: positive bilaterally Seated flexion test: positive bilaterally. Imaging: CT Angiogram of the Head and Neck from 01/14/20 reviewed Assessment/ Plan : R Trigeminal Neuralgia Recommendation of medication management. Add Lidocaine 5% topical to regimen of Oxycodone and Neurontin. Use, side effects, adverse reactions, safe storage discussed. Pt acknowledged understanding. All questions answered. I have spent greater than 30 minutes on patient care today. Dr Reynoso was available by phone for the evaluation of this patient. The time was used to review the medical records including relevant urine studies and Prescription history (MAPs), review of the available imaging, evaluation and examination of the patient, coordination of care with the medical staff and if applicable referring physicians, as well as creation of the medical record PQRS Narrative: Smoking Status Former smoker Narcotic Agreement Date Signed 03/14/24 Blood Pressure 139/78 Pain Intensity [Right Face] 8 Scale Used Numeric (1 - 10) Hx Alcohol Use (MH) No Home Medications: Ambulatory Orders Alfuzosin HCl [Uroxatral ER] 10 mg PO QAM 01/13/17 Atorvastatin [Lipitor] 40 mg PO MOWETHSA 01/13/17 Diltiazem Cd [Cardizem CD] 300 mg PO QAM 01/13/17 OXcarbazepine [Trileptal] 300 mg PO BID 01/13/17 Warfarin [Coumadin] 5 mg PO HS 01/13/17 Acetaminophen [Tylenol Extra Strength] 500 mg PO Q4H PRN 10/29/19 Ergocalciferol [Vitamin D2 (DRISDOL)] 50,000 unit PO FR 10/29/19 Gabapentin [Neurontin] 600 mg PO TID 10/29/19 atenoloL 25 mg PO QAM 10/29/19 Divalproex [Depakote] 250 mg PO BID 02/06/24 Rosuvastatin [Crestor] 20 mg PO HS 02/06/24 Lidocaine 5% Oint [Xylocaine 5% Oint] 1 applic TOPICAL BID 30 Days #50 gm 03/14/24 Controlled Substance Measures - Controlled Substance Measures Is patient prescribed a controlled substance at discharge?: No
== END ==
LOC: PNWHC3 09:41
PROVIDERS: ATTEND Specialist
DX: G50.0 Trigeminal neuralgia (principal); Z87.891 Personal history of nicotine dependence; Z88.2 Allergy status to sulfonamides
CPT/HCPCS: 99211

== ENCOUNTER 2024-09-27 16:40 | Inpatient (IN) | payer MEDICARE ==
--- NOTE | 2024-09-27 17:49 | ED ---
General Adult HPI - General Chief complaint: Weakness Stated complaint: AMS Time Seen by Provider: 09/27/24 16:50 Source: patient, EMS, RN notes reviewed, old records reviewed Mode of arrival: EMS Limitations: altered mental status - History of Present Illness Initial comments: This is an 84-year-old male who is brought in by EMS patient is a poor historian but he is alert and oriented x 3 and states he is here because he is just weak and not sleeping and not eating recently. According to EMS family stated he was not taking any of his medications. Family also told EMS occasionally he is altered mentally though he is not currently. Patient has no complaints of pain. Patient has no headache patient has no numbness weakness. Patient denies chest pain difficulty breathing or shortness of breath. Patient denies any abdominal pain patient has nausea vomiting diarrhea. Per EMS family wants him evaluated because he is just having a failure to thrive at this time. - Related Data Home Medications Medication Instructions Recorded Confirmed Alfuzosin HCl [Uroxatral ER] 10 mg PO QAM 01/13/17 02/09/24 Atorvastatin [Lipitor] 40 mg PO MOWETHSA 01/13/17 02/09/24 Diltiazem Cd [Cardizem CD] 300 mg PO QAM 01/13/17 02/09/24 OXcarbazepine [Trileptal] 300 mg PO BID 01/13/17 02/09/24 Warfarin [Coumadin] 5 mg PO HS 01/13/17 02/09/24 Acetaminophen [Tylenol Extra 500 mg PO Q4H PRN 10/29/19 02/09/24 Strength] Ergocalciferol [Vitamin D2 50,000 unit PO FR 10/29/19 02/09/24 (DRISDOL)] Gabapentin [Neurontin] 600 mg PO TID 10/29/19 02/09/24 atenoloL 25 mg PO QAM 10/29/19 02/09/24 Divalproex [Depakote] 250 mg PO BID 02/06/24 02/09/24 Rosuvastatin [Crestor] 20 mg PO HS 02/06/24 02/09/24 Previous Rx's Medication Instructions Recorded Lidocaine 5% Oint [Xylocaine 5% 1 applic TOPICAL BID 30 Days #50 gm 03/14/24 Oint] Allergies Allergy/AdvReac Type Severity Reaction Status Date / Time Sulfa (Sulfonamide Allergy Dyspnea Verified 02/09/24 07:19 Antibiotics) Review of Systems ROS Statement: Those systems with pertinent positive or pertinent negative responses have been documented in the HPI. ROS Other: All systems not noted in ROS Statement are negative. 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 BPH. has cpap not wearing right now. History of Any Multi-Drug Resistant Organisms: None Reported Past Surgical History: Hernia Repair Additional Past Surgical History / Comment(s): BILATERAL INGUINAL. cyst removed left testicle, juice cataracts, laser rt eye, pain clinic Past Anesthesia/Blood Transfusion Reactions: No Reported Reaction Past Psychological History: No Psychological Hx Reported Smoking Status: Former smoker Past Alcohol Use History: Occasional Past Drug Use History: None Reported - Past Family History Mother Family Medical History: No Reported History Father Family Medical History: Myocardial Infarction (CT) General Exam - General Exam Comments Initial Comments: GENERAL: Patient is well-developed and well-nourished. Patient is nontoxic and well- hydrated and is in no acute distress. ENT: Neck is soft and supple. No significant lymphadenopathy is noted. Oropharynx is clear. Moist mucous membranes. Neck has full range of motion without eliciting any pain. EYES: The sclera were anicteric and conjunctiva were pink and moist. Extraocular movements were intact and pupils were equal round and reactive to light. Eyelids were unremarkable. PULMONARY: Unlabored respirations. Good breath sounds bilaterally. No audible rales rhonchi or wheezing was noted. CARDIOVASCULAR: There is a regular rate and rhythm without any murmurs gallops or rubs. ABDOMEN: Soft and nontender with normal bowel sounds. SKIN: Skin is clear with no lesions or rashes and otherwise unremarkable. NEUROLOGIC: Patient is alert and oriented x3. Cranial nerves II through XII are grossly intact. Motor and sensory are also intact. Normal speech, volume and content. Symmetrical smile. MUSCULOSKELETAL: Normal extremities with adequate strength and full range of motion. No lower extremity swelling or edema. No calf tenderness. LYMPHATICS: No significant lymphadenopathy is noted PSYCHIATRIC: Normal psychiatric evaluation. Limitations: altered mental status Course Vital Signs 09/27/24 09/27/24 16:45 18:54 Temperature 97.4 F L Pulse Rate 86 85 Respiratory 18 18 Rate Blood Pressure 170/110 165/108 O2 Sat by Pulse 97 97 Oximetry Medical Decision Making - Medical Decision Making EKG is interpreted by myself. EKG shows a sinus rhythm at 83 bpm AL interval is 172 QRS is 85 QT interval is 4 1 QTc is 440. Patient's EKG shows no ST segment elevation or depression Was pt. sent in by a medical professional or institution (ARAVIND Bolanos, CE[employer], urgent care, hospital, or long-term...) When possible be specific @ -No Did you speak to anyone other than the patient for history (EMS, parent, family, police, friend...)? What history was obtained from this source @ -No Did you review nursing and triage notes (agree or disagree)? Why? @ -I reviewed and agree with nursing and triage notes Were old charts reviewed (outside hosp., previous admission, EMS record, old EKG, old radiological studies, urgent care reports/EKG's, long-term records)? Report findings @ -No old charts were reviewed Differential Diagnosis? @ -Differential Weakness: Hypoglycemia, shock, sepsis, hyponatremia, anemia, infection, CT, ETOH, adverse medicine reaction, overdose, stroke, this is not meant to be an all-inclusive list. EKG interpreted by me (3pts min.). @ -As above X-rays interpreted by me (1pt min.). @ -Chest x-ray shows no acute abnormality CT interpreted by me (1pt min.). @ -None done U/S interpreted by me (1pt. min.). @ -None done What testing was considered but not performed or refused? (CT, X-rays, U/S, labs)? Why? @ -None What meds were considered but not given or refused? Why? @ -None Did you discuss the management of the patient with other professionals (professionals i.e. ARAVIND Bolanos, [employer] TE[employer]ER, lab, RT, psych nurse, social and human services assistant, chick room supervisor, teacher, gift officer, assistant case manager)? Give summary @ -I spoke with the significant hospitalist agreed to admit the patient admit the patient for admitting orders Was smoking cessation discussed for >3mins.? @ -No Was critical care preformed (if so, how long)? @ -35 minutes Were there social determinants of health that impacted care today? How? (Homelessness, low income, unemployed, alcoholism, drug addiction, transportation, low edu. Level, literacy, decrease access to med. care, [place] [facility], rehab)? @ -No Was there de-escalation of care discussed even if they declined (Discuss DNR or withdrawal of care, Hospice)? DNR status @ -No What co-morbidities impacted this encounter? (DM, HTN, Smoking, COPD, CAD, Cancer, CVA, ARF, Chemo, Hep., AIDS, mental health diagnosis, sleep apnea, morbid obesity)? @ -None Was patient admitted / discharged? Hospital course, mention meds given and route, prescriptions, significant lab abnormalities, going to OR and other pertinent info. @ -Patient's troponin came back elevated though he was not having any chest pain and/or shortness of breath. I did start the patient on heparin. The daughter showed up and told me that the patient has not taken any of his medications for 9 days. Patient is not taking his blood pressure meds or his blood thinner. Patient does not give any explanation for not taking the medications. Patient s tates he just does not know why he does not. Patient also agrees he is not sleeping or eating appropriately. Patient remains alert and oriented x 3. Daughter also states that in the past he has had a stroke. Daughter states that she would like him to get into rehabilitation where he gets some appropriate care and take his medication Undiagnosed new problem with uncertain prognosis? @ -No Drug Therapy requiring intensive monitoring for toxicity (Heparin, Nitro, Insulin, Cardizem)? @ -No Were any procedures done? @ -No Diagnosis/symptom? @ -NSTEMI Acute, or Chronic, or Acute on Chronic? @ -Acute Uncomplicated (without systemic symptoms) or Complicated (systemic symptoms)? @ -Complicated Side effects of treatment? @ -No Exacerbation, Progression, or Severe Exacerbation? @ -No Poses a threat to life or bodily function? How? (Chest pain, USA, CT, pneumonia, PE, COPD, DKA, ARF, appy, cholecystitis, CVA, Diverticulitis, Homicidal, Suicidal, threat to staff... and all critical care pts) @ -Yes this can lead to an CT and endorgan dysfunction - Lab Data Result diagrams: 09/27/24 18:12 09/27/24 18:12 Lab Results 09/27/24 09/27/24 09/27/24 Range/Units 18:12 18:12 18:12 WBC 3.62 L (4.50-10.00) 10*3/uL RBC 4.22 L (4.40-5.60) 10*6/uL Hgb 13.2 (13.0-17.0) g/dL Hct 37.7 L (39.6-50.0) % MCV 89.3 (80.0-97.0) fL MCH 31.3 (27.0-32.0) pg MCHC 35.0 (32.0-37.0) g/dL Plt Count 109 L (140-440) 10*3/uL MPV 11.1 (9.5-12.2) fL Immature Gran % (Auto) 0.3 % Neutrophils % 56.0 % Lymphocytes % 21.3 % Monocytes % 22.1 % Eosinophils % 0.0 % Basophils % 0.3 % Immature Gran # 0.01 (0.00-0.04) 10*3/uL Neutrophils # 2.03 (1.80-7.70) 10*3/uL Lymphocytes # 0.77 L (0.90-5.00) 10*3/uL Monocytes # 0.80 (0.20-1.00) 10*3/uL Eosinophils # 0.00 L (0.04-0.35) 10*3/uL Basophils # 0.01 (0.00-0.10) 10*3/uL Immature Plt Fraction 4.4 (1.1-6.1) % PT 11.0 (10.0-12.5) sec INR 1.0 (<1.2) APTT 19.8 L (22.0-30.0) sec Sodium 135 L (137-145) mmol/L Potassium 4.3 (3.5-5.1) mmol/L Chloride 101 (98-107) mmol/L Carbon Dioxide 19 L (22-30) mmol/L Anion Gap 15 mmol/L BUN 16 (9-20) mg/dL Creatinine 0.81 (0.66-1.25) mg/dL Est GFR (CKD-EPI)AfAm >90 (>60 ml/min/1.73 sqM) Est GFR (CKD-EPI)NonAf 82 (>60 ml/min/1.73 sqM) Glucose 82 (74-99) mg/dL Plasma Lactic Acid Devan (0.7-2.0) mmol/L Calcium 8.8 (8.4-10.2) mg/dL Magnesium 1.8 (1.6-2.3) mg/dL Total Bilirubin 2.1 H (0.2-1.3) mg/dL AST 53 (17-59) U/L ALT 21 (4-49) U/L Alkaline Phosphatase 68 (38-126) U/L Troponin I (0.000-0.034) ng/mL Total Protein 6.9 (6.3-8.2) g/dL Albumin 3.9 (3.5-5.0) g/dL Urine Color Urine Appearance (Clear) Urine pH (5.0-8.0) Ur Specific [place] (1.001-1.035) Urine Protein (Negative) Urine Glucose (UA) (Negative) Urine Ketones (Negative) Urine Blood (Negative) Urine Nitrite (Negative) Urine Bilirubin (Negative) Urine Urobilinogen (<2.0) mg/dL Ur Leukocyte Esterase (Negative) 09/27/24 09/27/24 09/27/24 Range/Units 18:12 18:12 18:39 WBC (4.50-10.00) 10*3/uL RBC (4.40-5.60) 10*6/uL Hgb (13.0-17.0) g/dL Hct (39.6-50.0) % MCV (80.0-97.0) fL MCH (27.0-32.0) pg MCHC (32.0-37.0) g/dL Plt Count (140-440) 10*3/uL MPV (9.5-12.2) fL Immature Gran % (Auto) % Neutrophils % % Lymphocytes % % Monocytes % % Eosinophils % % Basophils % % Immature Gran # (0.00-0.04) 10*3/uL Neutrophils # (1.80-7.70) 10*3/uL Lymphocytes # (0.90-5.00) 10*3/uL Monocytes # (0.20-1.00) 10*3/uL Eosinophils # (0.04-0.35) 10*3/uL Basophils # (0.00-0.10) 10*3/uL Immature Plt Fraction (1.1-6.1) % PT (10.0-12.5) sec INR (<1.2) APTT (22.0-30.0) sec Sodium (137-145) mmol/L Potassium (3.5-5.1) mmol/L Chloride (98-107) mmol/L Carbon Dioxide (22-30) mmol/L Anion Gap mmol/L BUN (9-20) mg/dL Creatinine (0.66-1.25) mg/dL Est GFR (CKD-EPI)AfAm (>60 ml/min/1.73 sqM) Est GFR (CKD-EPI)NonAf (>60 ml/min/1.73 sqM) Glucose (74-99) mg/dL Plasma Lactic Acid Devan 1.6 (0.7-2.0) mmol/L Calcium (8.4-10.2) mg/dL Magnesium (1.6-2.3) mg/dL Total Bilirubin (0.2-1.3) mg/dL AST (17-59) U/L ALT (4-49) U/L Alkaline Phosphatase (38-126) U/L Troponin I 0.166 H* (0.000-0.034) ng/mL Total Protein (6.3-8.2) g/dL Albumin (3.5-5.0) g/dL Urine Color Yellow Urine Appearance Clear (Clear) Urine pH 6.5 (5.0-8.0) Ur Specific [place] 1.015 (1.001-1.035) Urine Protein Trace H (Negative) Urine Glucose (UA) Negative (Negative) Urine Ketones 2+ H (Negative) Urine Blood Negative (Negative) Urine Nitrite Negative (Negative) Urine Bilirubin Negative (Negative) Urine Urobilinogen 2.0 (<2.0) mg/dL Ur Leukocyte Esterase Negative (Negative) Disposition Clinical Impression: NSTEMI (non-ST elevated myocardial infarction), Failure to thrive Disposition: ADMITTED IP TO THIS [facility] Referrals: Amy Dawson DO [Primary Care Provider] - 1-2 days Time of Disposition: 20:20
[2024-09-27] MEDS: SODIUM CHLORIDE 0.9% 500 ML 500 ML IV ONE (18:15)
[2024-09-27 18:26] LABS: Basophils # (A) 0.01 10*3/uL (0.00-0.10); Basophils % (A) 0.3 %; HCT 37.7 % (39.6-50.0); HGB 13.2 g/dL (13.0-17.0); Immature Platelet Fraction 4.4 % (1.1-6.1); Lymphocytes # (A) 0.77 10*3/uL (0.90-5.00); Lymphocytes % (A) 21.3 %; MCH 31.3 pg (27.0-32.0); MCV 89.3 fL (80.0-97.0); Mean Platelet Volume 11.1 fL (9.5-12.2); Monocytes % (A) 22.1 %; Neutrophils # (A) 2.03 10*3/uL (1.80-7.70); Platelet Count 109 10*3/uL (140-440); RBC 4.22 10*6/uL (4.40-5.60); RDW 15.3 % (11.5-14.5); WBC 3.62 10*3/uL (4.50-10.00)
[2024-09-27 18:38] LABS: ALT 21 U/L (4-49); African American GFR (CKD) >90 (>60 ml/min/1.73 sqM); Anion Gap 15 mmol/L; Blood Urea Nitrogen 16 mg/dL (9-20); Calcium 8.8 mg/dL (8.4-10.2); Carbon Dioxide 19 mmol/L (22-30); Chloride 101 mmol/L (98-107); Glucose 82 mg/dL (74-99); Non-African American GFR(CKD) 82 (>60 ml/min/1.73 sqM); Sodium 135 mmol/L (137-145)
[2024-09-27 18:46] LABS: AST 53 U/L (17-59); Albumin 3.9 g/dL (3.5-5.0); Alkaline Phosphatase 68 U/L (38-126); Magnesium 1.8 mg/dL (1.6-2.3); Potassium 4.3 mmol/L (3.5-5.1); Total Bilirubin 2.1 mg/dL (0.2-1.3); Total Protein 6.9 g/dL (6.3-8.2)
[2024-09-27 18:50] LABS: Appearance,Urine Clear (Clear); Bilirubin,Urine Negative (Negative); Blood,Urine Negative (Negative); Color,Urine Yellow; Glucose,Urine (UA) Negative (Negative); Ketones,Urine 2+ (Negative); Leukocyte Esterase,Urine Negative (Negative); Nitrite,Urine Negative (Negative); PH, Urine 6.5 (5.0-8.0); Protein,Urine Trace (Negative); Specific Gravity,Urine 1.015 (1.001-1.035)
--- NOTE | 2024-09-27 19:16 | XR ---
EXAMINATION TYPE: XR chest 2V DATE OF EXAM: 09/27/2024 6:51 PM COMPARISON: Chest radiographs from 01/14/2020 CLINICAL INDICATION: Male, 84 years old with history of Weakness; [facility] TECHNIQUE: XR chest 2V Frontal and lateral views of the chest. FINDINGS: Lungs/Pleura: There is no evidence of pleural effusion, focal consolidation, or pneumothorax. Pulmonary vascularity: Unremarkable. Heart/mediastinum: Cardiomediastinal silhouette is unremarkable. Musculoskeletal: No acute osseous pathology. IMPRESSION: No acute cardiopulmonary disease/process. [facility], , 09/27/2024 7:14 PM
[2024-09-27 19:34] LABS: Partial Thromboplastin Time 19.8 sec (22.0-30.0)
[2024-09-27] MEDS ORDERED: NITROGLYCERIN SL TABS 0.4 MG TAB SUBLINGUAL PRN (20:21)
[2024-09-27] MEDS: ASPIRIN 81 MG PO STA (20:52)
[2024-09-27] MEDS: SODIUM CHLORIDE 0.9% 1,000 ML IV SCH (20:53)
[2024-09-27] MEDS: HEPARIN SODIUM 1,000 UN/ML (10ML VL) IV ONE (20:54)
[2024-09-27] MEDS: HEPARIN SOD,PORK IN 0.45% NACL 25,000 UNIT in 0.45% NACL 1 250ML.BAG IV SCH (20:55)
[2024-09-27] MEDS: NITROGLYCERIN OINT 1 INCH/GM PACKET TOPICAL SCH (23:27)
[2024-09-28 08:35] LABS: Chol/HDL Ratio 4.76 Ratio; LDL Cholesterol,Calculated 92.3 mg/dL (0.0-131.0); VLDL Calculation 18.26 mg/dL (5.00-40.00)
--- NOTE | 2024-09-28 08:42 | P.CRDCN ---
History of Present Illness Consult date: 09/28/24 Reason for Consult (text): NSTEMI History of present illness: This is an 84-year-old male patient of Dr. Dayo Chapman with past medical history of paroxysmal atrial fibrillation previously on Coumadin, hypertension, dyslipidemia. We have been asked to evaluate the patient for NSTEMI. Patient was brought into the hospital with concern for decreased appetite for a couple of days, weakness, not sleeping well and not taking his medications. There is concern for failure to thrive. Patient denies chest pain or chest pressure. He is a very poor historian appears very weak. Blood pressure 140/91, heart rate 85, pulse ox 95% on room air. Patient has been started on a heparin drip and Nitropaste. Regarding anticoagulation, patient was previously on Coumadin during his last office visit on 04/30/2024. It appears he was recently started on a Xarelto starter pack. Patient is seen today in the emergency center waiting for a bed on the cardiac stepdown unit. -EKG:sinus with t wave inversions present on previous EKGs. -Chest x-ray:no acute process. -Laboratory studies: Troponin 0.166, 0.177, 0.211 -Home cardiac medications: Cardizem 120 mg daily, Xarelto starter pack, rosuvastatin. -Echocardiogram performed in the office in 2019 revealed normal LV size and function with mild concentric hypertrophy. Mild mitral regurgitation. Mild tricuspid regurgitation. Mild pulmonic regurgitation. -Dobutamine Cardiolite stress test performed 11/10/2021 with inconclusive EKG portion of the test due to baseline EKG abnormalities. Dobutamine induced atrial fibrillation. Normal myocardial perfusion and function. Review Of Systems: At the time of my exam: CONSTITUTIONAL: Denies fever or chills. Reports fatigue, weakness HEENT: Denies blurred vision, vision changes, or eye pain. Denies hemoptysis CARDIOVASCULAR: Denies chest pain. Denies orthopnea. Denies PND. Denies palpitations RESPIRATORY: Denies shortness of breath. GASTROINTESTINAL: Denies abdominal pain. Denies nausea or vomiting. HEMATOLOGIC: Denies bleeding disorders. GENITOURINARY: Denies any blood in urine. SKIN: Denies puritis. Denies rash. Physical examination: Gen: This is an 84-year-old male in no acute distress. VS: reviewed HEENT: Head is atraumatic, normocephalic. Pupils equal, round. Sclerae is anicteric. NECK: Supple. No JVD. LUNGS: Clear to auscultation. No wheezes or rhonchi. No intercostal retractions. HEART: Regular rate and rhythm. No murmur. ABDOMEN: Soft No tenderness. EXTREMITIES: No pedal edema. No calf tenderness. NEUROLOGICAL: Patient is awake. Assessment: Generalized weakness and fatigue NSTEMI, possible type II but cannot rule out type I Paroxysmal atrial fibrillation Hypertension Dyslipidemia Plan: Resume patient's home cardiac medications Continue patient on heparin drip for 24 hours Discontinue Nitropaste as patient has no complaints of chest pain Start patient on aspirin and atorvastatin Obtain 2-D echocardiogram and Doppler study to assess cardiac structure and function Further recommendations to follow based upon clinical course Thank you kindly for this consultation. Nurse practitioner note has been reviewed, I agree with documented findings and plan of care. Patient was seen and examined. 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 BPH. has cpap not wearing right now. History of Any Multi-Drug Resistant Organisms: None Reported Past Surgical History: Hernia Repair Additional Past Surgical History / Comment(s): BILATERAL INGUINAL. cyst removed left testicle, juice cataracts, laser rt eye, pain clinic Past Anesthesia/Blood Transfusion Reactions: No Reported Reaction Past Psychological History: No Psychological Hx Reported Smoking Status: Former smoker Past Alcohol Use History: Occasional Past Drug Use History: None Reported - Past Family History Mother Family Medical History: No Reported History Father Family Medical History: Myocardial Infarction ([place]) Medications and Allergies Home Medications Medication Instructions Recorded Confirmed Type Alfuzosin HCl [Uroxatral ER] 10 mg PO BID 01/13/17 09/27/24 History OXcarbazepine [Trileptal] 300 mg PO DAILY 01/13/17 09/27/24 History Ergocalciferol [Vitamin D2 50,000 unit PO FR 10/29/19 09/27/24 History (DRISDOL)] Rosuvastatin [Crestor] 20 mg PO DAILY 02/06/24 09/27/24 History Gabapentin 300 mg PO DAILY 09/27/24 09/27/24 History Rivaroxaban [Xarelto Starter Pack] See Taper PO DIRECTED 09/27/24 09/27/24 History dilTIAZem HCL [dilTIAZem HCL 24Hr 120 mg PO DAILY 09/27/24 09/27/24 History ER (Xr)] Allergies Allergy/AdvReac Type Severity Reaction Status Date / Time Sulfa (Sulfonamide Allergy Dyspnea Verified 09/27/24 20:41 Antibiotics) Physical Exam Vitals: Vital Signs Temp Pulse Resp BP Pulse Ox 09/28/24 04:00 85 18 140/91 95 09/28/24 01:47 73 18 95 09/28/24 00:00 75 16 147/91 94 L 09/27/24 22:00 92 18 150/96 97 09/27/24 20:57 99 18 142/90 96 09/27/24 18:54 85 18 165/108 97 09/27/24 16:45 97.4 F L 86 18 170/110 97 Intake and Output 09/27/24 09/27/24 09/28/24 14:59 22:59 06:59 Intake Total 81.581 Balance 81.581 Intake: Intake, IV Titration 81.581 Amount Heparin Sod,Pork in 0.45% 81.581 NaCl 25,000 unit In 0.45 % NaCl 1 250ml.bag @ 12 UNITS/KG/HR 9.253 mls/hr IV .Q24H [facility] Rx#: [id number] Other: Weight 77.111 kg Results 09/27/24 18:12 09/27/24 18:12 Cardiac Enzymes 09/27/24 09/27/24 09/27/24 Range/Units 18:12 18:12 20:46 AST 53 (17-59) U/L Troponin I 0.166 H* 0.177 H* (0.000-0.034) ng/mL 09/27/24 Range/Units 23:22 AST (17-59) U/L Troponin I 0.211 H* (0.000-0.034) ng/mL Coagulation 09/27/24 09/28/24 Range/Units 18:12 03:01 PT 11.0 (10.0-12.5) sec APTT 19.8 L 133.3 H* (22.0-30.0) sec CBC 09/27/24 Range/Units 18:12 WBC 3.62 L (4.50-10.00) 10*3/uL RBC 4.22 L (4.40-5.60) 10*6/uL Hgb 13.2 (13.0-17.0) g/dL Hct 37.7 L (39.6-50.0) % Plt Count 109 L (140-440) 10*3/uL Comprehensive Metabolic Panel 09/27/24 Range/Units 18:12 Sodium 135 L (137-145) mmol/L Potassium 4.3 (3.5-5.1) mmol/L Chloride 101 (98-107) mmol/L Carbon Dioxide 19 L (22-30) mmol/L BUN 16 (9-20) mg/dL Creatinine 0.81 (0.66-1.25) mg/dL Glucose 82 (74-99) mg/dL Calcium 8.8 (8.4-10.2) mg/dL AST 53 (17-59) U/L ALT 21 (4-49) U/L Alkaline Phosphatase 68 (38-126) U/L Total Protein 6.9 (6.3-8.2) g/dL Albumin 3.9 (3.5-5.0) g/dL Current Medications Generic Name Dose Route Start Last Admin Trade Name Freq PRN Reason Stop Dose Admin Aspirin 325 mg 09/28/24 09:00 Aspirin 325 Mg Tab PO DAILY SAMIR Heparin Sodium/Sodium Chloride 250 mls @ 9.253 mls/hr 09/27/24 20:30 09/28/24 05:44 25,000 unit/ Sodium Chloride IV 0 units/kg/hr .Q24H [facility]IR 0 mls/hr Titration Protocol 12 UNITS/KG/HR Sodium Chloride 1,000 mls @ 75 mls/hr 09/27/24 20:30 09/27/24 20:53 Saline 0.9% IV 75 mls/hr .[id number] SAMIR Administration Nitroglycerin 0.4 mg 09/27/24 20:21 Nitroglycerin Sl Tabs 0.4 Mg Tab SUBLINGUAL Q5M PRN Chest Pain Nitroglycerin 1 inch 09/28/24 00:00 09/28/24 05:41 Nitroglycerin Oint 1 Inch/Gm Packet TOPICAL 1 inch Q6HR SAMIR Administration Intake and Output 09/27/24 09/27/24 09/28/24 14:59 22:59 06:59 Intake Total 81.581 Balance 81.581 Intake: Intake, IV Titration 81.581 Amount Heparin Sod,Pork in 0.45% 81.581 NaCl 25,000 unit In 0.45 % NaCl 1 250ml.bag @ 12 UNITS/KG/HR 9.253 mls/hr IV .Q24H [facility] Rx#: [id number] Other: Weight 77.111 kg Patient Weight 09/28/24 06:59 Weight 77.111 kg 09/27/24 18:12 09/27/24 18:12
[2024-09-28] MEDS ORDERED: ASPIRIN 325 MG TAB PO SCH (09:00)
[2024-09-28] MEDS ORDERED: ATORVASTATIN 40 MG TAB PO SCH (09:00)
[2024-09-28] MEDS: DILTIAZEM CD 120 MG CAP.ER.24H PO SCH (09:38)
[2024-09-28] MEDS: ASPIRIN 81 MG PO SCH (09:56)
--- NOTE | 2024-09-28 10:43 | CA ---
Transthoracic Echo Report Name: Akil Johnson Age: 84 Gender: M : 1940 Exam Date: 09/28/2024 08:01 Exam Location: [facility] Ht (in): 66 Wt (lb): 170 Ordering Physician: Lorie Del Castillo Attending/Referring Phys: [id number], Mag[employer] Associate Crow Adames RDCS Procedure CPT: Indications: lvf, NSTEMI Cardiac Hx: Technical Quality: Technically difficult study Contrast 1: Definity Total Dose (mL): 2 Contrast 2: Total Dose (mL): MEASUREMENTS (Male / Female) Normal Values 2D ECHO LV Diastolic Diameter PLAX 4.2 cm 4.2 - 5.9 / 3.9 - 5.3 cm LV Systolic Diameter PLAX 3.0 cm IVS Diastolic Thickness 1.2 cm 0.6 - 1.0 / 0.6 - 0.9 cm LVPW Diastolic Thickness 1.1 cm 0.6 - 1.0 / 0.6 - 0.9 cm LV Relative Wall Thickness 0.5 RV Internal Dim ED PLAX 4.3 cm LVOT Diameter 2.1 cm LV Diastolic Volume MOD BP 45.8 cm??? 67 - 155 / 56 - 104 cm??? LV Systolic Volume MOD BP 25.3 cm??? 22 - 58 / 19 - 49 cm??? LV Ejection Fraction MOD BP 44.8 % >= 55 % LV Cardiac Index MOD BP 890.9 cm???/min???m??? LV Diastolic Volume MOD 4C 49.4 cm??? LV Systolic Volume MOD 4C 24.1 cm??? LV Ejection Fraction MOD 4C 51.3 % LV Cardiac Index MOD 4C 1097.7 cm???/min???m??? LV Diastolic Length 4C 7.7 cm LV Systolic Length 4C 6.9 cm LV Diastolic Volume MOD 2C 42.5 cm??? LV Systolic Volume MOD 2C 25.2 cm??? LV Ejection Fraction MOD 2C 40.6 % LV Cardiac Index MOD 2C 747.4 cm???/min???m??? LV Diastolic Length 2C 7.7 cm LV Systolic Length 2C 6.5 cm LA Volume 43.7 cm??? 18 - 58 / 22 - 52 cm??? LA Volume Index 22.8 cm???/m??? 16 - 28 cm???/m??? FINDINGS Left Ventricle Left ventricular ejection fraction is estimated at 50-55%. Mildly increased septal wall thickness. Moderately decreased left ventricular ejection fraction. Normal left ventricular systolic function with no obvious regional wall motion abnormalities. Left ventricular cavity size normal. Right Ventricle Normal right ventricular size and function. Unable to estimate the right ventricular systolic pressure. Right Atrium Normal right atrial size. Left Atrium Normal left atrial size. Mitral Valve Mitral annular calcification. No mitral stenosis. No mitral regurgitation. Aortic Valve Trileaflet aortic valve. Thickened aortic valve without stenosis. No aortic stenosis. No aortic regurgitation. Tricuspid Valve Structurally normal tricuspid valve. Trace tricuspid regurgitation. Pulmonic Valve Pulmonic valve not well visualized. Pericardium No pericardial effusion. Aorta Possible Aortic dissection. CONCLUSIONS Technically difficult study. LVEF 55% Mild concentric LVH No obvious regional wall motion abnormality Normal RV size and systolic function No significant valvular dysfunction There is a suspicion of possible dissection flap and ascending aorta. Recommend thoracic aortic CTA to rule out. However less likely based from images. Previewed by: Dr Ayo Orona (Electronically Signed) Final Date: 28 September 2024 10:42
--- NOTE | 2024-09-28 11:41 | P.GSCN ---
History of Present Illness Consult date: 09/28/24 Reason for Consult: aortic disection Requesting physician: Ayo Orona History of present illness: This is an 84 year old gentleman who follows outpatient with Dr. Amy Dawson for internal medicine and Dr. Chapman for cardiology. He has a previous medical history of chronic atrial fibrillation, previously on coumadin for anticoagulation, recently started on Xarelto, HTN, HLD, CVA, EDUARDO, trigeminal neurolgia, neuropathy, previous tobacco dependence. He was recently admitted at [facility] [place], [place] 08/22/24-08/28/24 for unresponsiveness, thought initially to be stroke but stroke was ruled out. He was sent home and was doing ok per his daughter. Apparently for the last 9 days he hasn't taken any of his home medications, hasn't eaten much, and has been very weak and a bit altered. He was brought to [facility] last night for evaluation. EKG demonstrated sinus rhythm. CXR demonstrated no acute process. Labwork revealed WBC 3.62, hgb 13.2, plt 109, INR 1.0, Na 135, creat 0.81, troponin was 0.166. He was admitted for evaluation and treatment with cardiology consulted due to elevated troponin. Transthoracic echocardiogram was completed demonstrating normal left ventricular systolic function with EF 55%, mild concentric LVH, no obvious regional wall motion abnormality, no significant valvular pathology, although there was suspicion for dissection flap in the ascending aorta. Due to finding of possib le aortic dissection consultation was placed to cardiothoracic surgery for treatment recommendations. 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 BPH. has cpap not wearing right now. History of Any Multi-Drug Resistant Organisms: None Reported Past Surgical History: Hernia Repair Additional Past Surgical History / Comment(s): BILATERAL INGUINAL. cyst removed left testicle, juice cataracts, laser rt eye, pain clinic Past Anesthesia/Blood Transfusion Reactions: No Reported Reaction Past Psychological History: No Psychological Hx Reported Smoking Status: Former smoker Past Alcohol Use History: Occasional Past Drug Use History: None Reported - Past Family History Mother Family Medical History: No Reported History Father Family Medical History: Myocardial Infarction ([place]) Medications and Allergies Home Medications Medication Instructions Recorded Confirmed Type Alfuzosin HCl [Uroxatral ER] 10 mg PO BID 01/13/17 09/27/24 History OXcarbazepine [Trileptal] 300 mg PO DAILY 01/13/17 09/27/24 History Ergocalciferol [Vitamin D2 50,000 unit PO FR 10/29/19 09/27/24 History (DRISDOL)] Rosuvastatin [Crestor] 20 mg PO DAILY 02/06/24 09/27/24 History Gabapentin 300 mg PO DAILY 09/27/24 09/27/24 History Rivaroxaban [Xarelto Starter Pack] See Taper PO DIRECTED 09/27/24 09/27/24 History dilTIAZem HCL [dilTIAZem HCL 24Hr 120 mg PO DAILY 09/27/24 09/27/24 History ER (Xr)] Allergies Allergy/AdvReac Type Severity Reaction Status Date / Time Sulfa (Sulfonamide Allergy Dyspnea Verified 09/27/24 20:41 Antibiotics) Surgical - Exam Vital Signs Temp Pulse Resp BP Pulse Ox 97.4 F L 86 18 170/110 97 09/27/24 16:45 09/27/24 16:45 09/27/24 16:45 09/27/24 16:45 09/27/24 16:45 CONSTITUTIONAL: Awake and alert, appears comfortable, cooperative, no pain, no acute distress EYES: Pupils equal, round, reactive to light, normal ocular movement ENT: Moist mucous membranes without oral lesions present NECK: No masses, no bruits, trachea midline RESPIRATORY: Lungs sounds clear to auscultation bilaterally. Respirations even, nonlabored. Currently on room air with oxygen saturation 95%. Strong cough. No chest wall deformities. No clubbing or cyanosis present CARDIOVASCULAR: S1, S2 present. Tacky, irregular rate and rhythm, A-fib RVR on telemetry. Palpable peripheral pulses bilaterally. No edema present. No calf pain or tenderness noted GASTROINTESTINAL: Abdomen soft, nontender, nondistended without masses or organomegaly noted. There is no rebound or guarding present. Active bowel sounds present 4 quadrants. GENITOURINARY: Deferred INTEGUMENTARY: Skin is warm and dry NEUROLOGIC: Cranial nerves II through XII intact MUSKULOSKELETAL: Able to move all extremities, strength equal bilaterally, normal posture PSYCHIATRIC: Alert and oriented to person place and time Results - Labs 09/27/24 18:12 09/27/24 18:12 Abnormal Lab Results - Last 24 Hours (Table) 09/27/24 09/27/24 09/27/24 Range/Units 18:12 18:12 18:12 WBC 3.62 L (4.50-10.00) 10*3/uL RBC 4.22 L (4.40-5.60) 10*6/uL Hct 37.7 L (39.6-50.0) % Plt Count 109 L (140-440) 10*3/uL Lymphocytes # 0.77 L (0.90-5.00) 10*3/uL Eosinophils # 0.00 L (0.04-0.35) 10*3/uL APTT 19.8 L (22.0-30.0) sec Sodium 135 L (137-145) mmol/L Carbon Dioxide 19 L (22-30) mmol/L Total Bilirubin 2.1 H (0.2-1.3) mg/dL Troponin I (0.000-0.034) ng/mL HDL Cholesterol (40.00-60.00) mg/dL Urine Protein (Negative) Urine Ketones (Negative) 09/27/24 09/27/24 09/27/24 Range/Units 18:12 18:39 20:46 WBC (4.50-10.00) 10*3/uL RBC (4.40-5.60) 10*6/uL Hct (39.6-50.0) % Plt Count (140-440) 10*3/uL Lymphocytes # (0.90-5.00) 10*3/uL Eosinophils # (0.04-0.35) 10*3/uL APTT (22.0-30.0) sec Sodium (137-145) mmol/L Carbon Dioxide (22-30) mmol/L Total Bilirubin (0.2-1.3) mg/dL Troponin I 0.166 H* 0.177 H* (0.000-0.034) ng/mL HDL Cholesterol (40.00-60.00) mg/dL Urine Protein Trace H (Negative) Urine Ketones 2+ H (Negative) 09/27/24 09/28/24 09/28/24 Range/Units 23:22 03:01 03:01 WBC (4.50-10.00) 10*3/uL RBC (4.40-5.60) 10*6/uL Hct (39.6-50.0) % Plt Count (140-440) 10*3/uL Lymphocytes # (0.90-5.00) 10*3/uL Eosinophils # (0.04-0.35) 10*3/uL APTT 133.3 H* (22.0-30.0) sec Sodium (137-145) mmol/L Carbon Dioxide (22-30) mmol/L Total Bilirubin (0.2-1.3) mg/dL Troponin I 0.211 H* (0.000-0.034) ng/mL HDL Cholesterol 29.40 L (40.00-60.00) mg/dL Urine Protein (Negative) Urine Ketones (Negative) Diabetes panel 09/27/24 09/28/24 Range/Units 18:12 03:01 Sodium 135 L (137-145) mmol/L Potassium 4.3 (3.5-5.1) mmol/L Chloride 101 (98-107) mmol/L Carbon Dioxide 19 L (22-30) mmol/L BUN 16 (9-20) mg/dL Creatinine 0.81 (0.66-1.25) mg/dL Glucose 82 (74-99) mg/dL Calcium 8.8 (8.4-10.2) mg/dL AST 53 (17-59) U/L ALT 21 (4-49) U/L Alkaline Phosphatase 68 (38-126) U/L Total Protein 6.9 (6.3-8.2) g/dL Albumin 3.9 (3.5-5.0) g/dL Triglycerides 91.30 (0.00-149.00) mg/dL HDL Cholesterol 29.40 L (40.00-60.00) mg/dL Calcium panel 09/27/24 Range/Units 18:12 Calcium 8.8 (8.4-10.2) mg/dL Albumin 3.9 (3.5-5.0) g/dL Pituitary panel 09/27/24 Range/Units 18:12 Sodium 135 L (137-145) mmol/L Potassium 4.3 (3.5-5.1) mmol/L Chloride 101 (98-107) mmol/L Carbon Dioxide 19 L (22-30) mmol/L BUN 16 (9-20) mg/dL Creatinine 0.81 (0.66-1.25) mg/dL Glucose 82 (74-99) mg/dL Calcium 8.8 (8.4-10.2) mg/dL Adrenal panel 09/27/24 Range/Units 18:12 Sodium 135 L (137-145) mmol/L Potassium 4.3 (3.5-5.1) mmol/L Chloride 101 (98-107) mmol/L Carbon Dioxide 19 L (22-30) mmol/L BUN 16 (9-20) mg/dL Creatinine 0.81 (0.66-1.25) mg/dL Glucose 82 (74-99) mg/dL Calcium 8.8 (8.4-10.2) mg/dL Total Bilirubin 2.1 H (0.2-1.3) mg/dL AST 53 (17-59) U/L ALT 21 (4-49) U/L Alkaline Phosphatase 68 (38-126) U/L Total Protein 6.9 (6.3-8.2) g/dL Albumin 3.9 (3.5-5.0) g/dL - Imaging Chest x-ray: report reviewed, image reviewed EKG: image reviewed Additional studies: Echo report reviewed Assessment and Plan Assessment: Failure to thrive Atrial fibrillation with rapid ventricular response Questionable ascending aortic dissection on echo Elevated troponin History of chronic atrial fibrillation, previously on coumadin for anticoagulation, recently started on Xarelto HTN HLD CVA EDUARDO Trigeminal neurolgia Neuropathy Previous tobacco dependence. Plan: The patient was seen and examined lying on a cart in the emergency room in no acute distress. Daughter was present. Chart/diagnostics reviewed. Discussed with Dr. Bradford. Aortic disection should be confirmed with CTA of the chest. We would not consider surgical intervention at this facility. We do recommend good blood pressure control. Consider transfer to higher level of care if surgical intervention is considered. Code status should be addressed. Medical management per internal medicine, cardiology. Thank you Dr. Orona for this consult. Please call us with any questions. I have personally seen and examined the patient, performed the documentation and the assessment and plan as written. Number of minutes spent on the visit: 30. HESHAM Francis
[2024-09-28] MEDS ORDERED: niCARdipine 20 MG in SODIUM CHLORIDE 0.9% 192 ML IV SCH (12:45)
[2024-09-28] MEDS: DILTIAZEM 125 MG in DEXTROSE 5% IN WATER 100 ML IV SCH (13:08)
--- NOTE | 2024-09-28 20:17 | P.HPIM ---
History of Present Illness H&P Date: 09/28/24 Patient is a 54-year-old man with a past medical history of atrial fibrillation on anticoagulation with Eliquis, hypertension, hyperlipidemia, prostate disorder/bleed., Obstructive sleep apnea not wearing CPAP, history of CVA/TIA, ongoing hand prior history of smoking presents to ER with the complaints of not feeling well. Patient states that he is feeling very weak and not sleeping and not eating recently. Family called EMS as he was not taking his medications. Otherwise patient denied any complaints of chest pain or shortness of breath. No headache. No complaints of dizziness. No complaints of leg swelling. No nausea vomiting or diarrhea. EKG showed sinus rhythm with possible left atrial enlargement. Chest x-ray showed no acute cardiopulmonary process Laboratory data showed WBC 3.62, hemoglobin 13.2 and platelets 109. Lymphocytes 0.77, sodium 135 potassium 4.3 chloride 101 bicarb is 19 BUN 16 and creatinine 0.81 blood sugar 82 liver enzymes not elevated magnesium 1.8 troponin 0.166, 0.177 and 0.211 Urinalysis is negative for infection. 2D echocardiogram showed LVEF 55%, mild concentric LVH, no obvious regional wall motion abnormality. Normal LV size and systolic function. No significant valvular dysfunction. There is suspicion of possible dissection flap on ascendi ng aorta. Review of Systems Constitutional: Patient denies any fever or chills . Generalized weakness and tired and fatigue. Denies any weight loss. Abdomen: Patient denied nausea vomiting and diarrhea and abdominal pain. Cardiovascular: Patient denies any chest pain or short of breath no palpitations. Respiratory: patient denied any cough or sputum production. No shortness of breath Neurologic: Patient denied any numbness or tingling. no headache. Musculoskeletal: Patient denies any complaints of joint swelling or deformity. Skin: Negative Psychiatric: Negative Endocrine: No heat or cold intolerance. No recent weight gain. Genitourinary: No dysuria or hematuria. 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 BPH. has cpap not wearing right now. History of Any Multi-Drug Resistant Organisms: None Reported Past Surgical History: Hernia Repair Additional Past Surgical History / Comment(s): BILATERAL INGUINAL. cyst removed left testicle, juice cataracts, laser rt eye, pain clinic Past Anesthesia/Blood Transfusion Reactions: No Reported Reaction Past Psychological History: No Psychological Hx Reported Smoking Status: Former smoker Past Alcohol Use History: Occasional Past Drug Use History: None Reported - Past Family History Mother Family Medical History: No Reported History Father Family Medical History: Myocardial Infarction (CT) Medications and Allergies Home Medications Medication Instructions Recorded Confirmed Type Alfuzosin HCl [Uroxatral ER] 10 mg PO BID 01/13/17 09/27/24 History OXcarbazepine [Trileptal] 300 mg PO DAILY 01/13/17 09/27/24 History Ergocalciferol [Vitamin D2 50,000 unit PO FR 10/29/19 09/27/24 History (DRISDOL)] Rosuvastatin [Crestor] 20 mg PO DAILY 02/06/24 09/27/24 History Gabapentin 300 mg PO DAILY 09/27/24 09/27/24 History Rivaroxaban [Xarelto Starter Pack] See Taper PO DIRECTED 09/27/24 09/27/24 History dilTIAZem HCL [dilTIAZem HCL 24Hr 120 mg PO DAILY 09/27/24 09/27/24 History ER (Xr)] Allergies Allergy/AdvReac Type Severity Reaction Status Date / Time Sulfa (Sulfonamide Allergy Dyspnea Verified 09/27/24 20:41 Antibiotics) Physical Exam Vitals: Vital Signs Temp Pulse Resp BP Pulse Ox 09/28/24 14:55 97.9 F 89 105 H 106/82 98 09/28/24 14:07 117 H 18 107/77 97 09/28/24 13:15 126 H 18 108/92 97 09/28/24 11:06 133 H 18 114/84 95 09/28/24 10:21 131 H 16 110/84 96 09/28/24 09:44 121 H 16 104/75 99 09/28/24 08:41 87 18 149/100 100 09/28/24 06:00 68 16 139/101 09/28/24 04:00 85 18 140/91 95 09/28/24 01:47 73 18 95 09/28/24 00:00 75 16 147/91 94 L 09/27/24 22:00 92 18 150/96 97 09/27/24 20:57 99 18 142/90 96 09/27/24 18:54 85 18 165/108 97 09/27/24 16:45 97.4 F L 86 18 170/110 97 Intake and Output 09/28/24 09/28/24 09/28/24 06:59 14:59 22:59 Intake Total 81.581 Balance 81.581 Intake: Intake, IV Titration 81.581 Amount Heparin Sod,Pork in 0.45% 81.581 NaCl 25,000 unit In 0.45 % NaCl 1 250ml.bag @ 12 UNITS/KG/HR 9.253 mls/hr IV .Q24H [facility] Rx#: [id number] PHYSICAL EXAMINATION: Patient is lying in the bed,, no acute distress, awake alert and oriented.. HEENT: Normocephalic. Neck is supple. Pupils reactive. Nostrils clear. Oral cavity is moist. Neck reveals no JVD, carotid bruits, or thyromegaly. CHEST EXAMINATION: Trachea is central. Symmetrical expansion. No wheezing or rhonchi. Lung resendez clear to auscultation and percussion. CARDIAC: Normal S1, S2 with no gallops. No murmurs ABDOMEN: Soft. Bowel sounds normal. No organomegaly. No abdominal bruits. Extremities: reveal no edema. No clubbing or cyanosis Neurologically awake, alert, oriented x3 able to move all extremities. No gross focal deficits noted Skin: No rash or skin lesions. Psychiatric: Coperative. Nonsuicidal Musculoskeletal: No joint swelling or deformity. Results CBC & Chem 7: 09/29/24 07:49 09/29/24 20:18 Labs: Abnormal Lab Results - Last 24 Hours (Table) 09/27/24 09/27/24 09/27/24 Range/Units 18:12 18:12 18:12 WBC 3.62 L (4.50-10.00) 10*3/uL RBC 4.22 L (4.40-5.60) 10*6/uL Hct 37.7 L (39.6-50.0) % Plt Count 109 L (140-440) 10*3/uL Lymphocytes # 0.77 L (0.90-5.00) 10*3/uL Eosinophils # 0.00 L (0.04-0.35) 10*3/uL APTT 19.8 L (22.0-30.0) sec Sodium 135 L (137-145) mmol/L Carbon Dioxide 19 L (22-30) mmol/L Total Bilirubin 2.1 H (0.2-1.3) mg/dL Troponin I (0.000-0.034) ng/mL HDL Cholesterol (40.00-60.00) mg/dL Urine Protein (Negative) Urine Ketones (Negative) 09/27/24 09/27/24 09/27/24 Range/Units 18:12 18:39 20:46 WBC (4.50-10.00) 10*3/uL RBC (4.40-5.60) 10*6/uL Hct (39.6-50.0) % Plt Count (140-440) 10*3/uL Lymphocytes # (0.90-5.00) 10*3/uL Eosinophils # (0.04-0.35) 10*3/uL APTT (22.0-30.0) sec Sodium (137-145) mmol/L Carbon Dioxide (22-30) mmol/L Total Bilirubin (0.2-1.3) mg/dL Troponin I 0.166 H* 0.177 H* (0.000-0.034) ng/mL HDL Cholesterol (40.00-60.00) mg/dL Urine Protein Trace H (Negative) Urine Ketones 2+ H (Negative) 09/27/24 09/28/24 09/28/24 Range/Units 23:22 03:01 03:01 WBC (4.50-10.00) 10*3/uL RBC (4.40-5.60) 10*6/uL Hct (39.6-50.0) % Plt Count (140-440) 10*3/uL Lymphocytes # (0.90-5.00) 10*3/uL Eosinophils # (0.04-0.35) 10*3/uL APTT 133.3 H* (22.0-30.0) sec Sodium (137-145) mmol/L Carbon Dioxide (22-30) mmol/L Total Bilirubin (0.2-1.3) mg/dL Troponin I 0.211 H* (0.000-0.034) ng/mL HDL Cholesterol 29.40 L (40.00-60.00) mg/dL Urine Protein (Negative) Urine Ketones (Negative) 09/28/24 Range/Units 11:50 WBC (4.50-10.00) 10*3/uL RBC (4.40-5.60) 10*6/uL Hct (39.6-50.0) % Plt Count (140-440) 10*3/uL Lymphocytes # (0.90-5.00) 10*3/uL Eosinophils # (0.04-0.35) 10*3/uL APTT 33.9 H (22.0-30.0) sec Sodium (137-145) mmol/L Carbon Dioxide (22-30) mmol/L Total Bilirubin (0.2-1.3) mg/dL Troponin I (0.000-0.034) ng/mL HDL Cholesterol (40.00-60.00) mg/dL Urine Protein (Negative) Urine Ketones (Negative) Thrombosis Risk Factor Assmnt - DVT/VTE Prophylaxis DVT/VTE Prophylaxis: Pharmacologic Prophylaxis ordered Assessment and Plan Assessment: Generalized weakness, fatigue and failure to thrive. Elevated troponin level possible non-ST elevated CT Paroxysmal atrial fibrillation with RVR on anticoagulation with Eliquis Suspicious for dissection flap on ascending aorta. Less likely for cardiology Hypertension uncontrolled on admission Hyperlipidemia BPH GERD History of CVA/TIA. No residual weakness GERD Prior history of smoking DVT prophylaxis. Patient is on full anticoagulation Plan: Patient will be continued on telemonitoring. Continue with aspirin and statins. Patient was started on heparin drip due to elevated troponin level and Cardizem drip due to A-fib with RVR. Patient was started back on home medications. 2D echocardiogram shows suspicious for dissection flap. CT surgery was consulted. Cardiology is on board. Continue to follow closely. Prognosis is guarded. Time with Patient: Greater than 30
[2024-09-28] MEDS: ATORVASTATIN 40 MG TAB PO SCH (20:59)
[2024-09-28] MEDS: TAMSULOSIN 0.4 MG CAP.ER.24H PO SCH (20:59)
[2024-09-28 22:27] LABS: Influenza A Not Detected (Not Detectd); Influenza B Not Detected (Not Detectd); RSV Not Detected (Not Detectd)
[2024-09-29 08:48] LABS: HCT 38.3 % (39.6-50.0); HGB 13.2 g/dL (13.0-17.0); Immature Platelet Fraction 4.2 % (1.1-6.1); Lymphocytes # (A) 0.73 10*3/uL (0.90-5.00); Lymphocytes % (A) 25.1 %; MCH 31.1 pg (27.0-32.0); MCHC 34.5 g/dL (32.0-37.0); MCV 90.3 fL (80.0-97.0); Monocytes # (A) 0.57 10*3/uL (0.20-1.00); Monocytes % (A) 19.6 %; Platelet Count 112 10*3/uL (140-440); RBC 4.24 10*6/uL (4.40-5.60); RDW 15.5 % (11.5-14.5); WBC 2.91 10*3/uL (4.50-10.00)
[2024-09-29 08:59] LABS: African American GFR (CKD) >90 (>60 ml/min/1.73 sqM); Anion Gap 12 mmol/L; Blood Urea Nitrogen 14 mg/dL (9-20); Calcium 8.5 mg/dL (8.4-10.2); Carbon Dioxide 20 mmol/L (22-30); Chloride 105 mmol/L (98-107); Glucose 88 mg/dL (74-99); Non-African American GFR(CKD) 85 (>60 ml/min/1.73 sqM); Sodium 137 mmol/L (137-145)
[2024-09-29 09:03] LABS: Potassium 2.6 mmol/L (3.5-5.1)
[2024-09-29] MEDS ORDERED: Potassium Replacement Protocol 1 EACH MISC MISCELLANE PRN (09:16)
[2024-09-29] MEDS: POTASSIUM CHLORIDE ER 20 MEQ TAB.ER PO SCH ×2 (09:34→21:20)
[2024-09-29] MEDS: OXcarbazepine 300 MG TAB PO SCH (09:35)
[2024-09-29] MEDS: GABAPENTIN 300 MG CAP PO SCH (09:35)
--- NOTE | 2024-09-29 16:15 | CT ---
EXAMINATION TYPE: CT angio thor/abd pel aorta CT DLP: 1198.9 mGycm, Automated exposure control for dose reduction was used. DATE OF EXAM: 09/29/2024 3:23 PM COMPARISON: None. CLINICAL INDICATION:Male, 84 years old with history of Type A aortic dissection; PHH, r/o dissection TECHNIQUE: Dissection protocol: Multiple axial CT images of the chest, abdomen, and pelvis were obtai petros prior and to the administration of IV contrast. 3-D reformats and maximum intensity projection fo rmat were performed on a separate workstation. Contrast used:100 mL of Isovue 370 without and with IV Contrast, Oral contrast used: FINDINGS: ARTERIAL VASCULATURE: Ascending thoracic aorta and descending thoracic aorta are within normal limits for size. Throughout the thoracic and abdominal aorta there are advanced calcified and noncalcified atherosclerotic changes. There is a penetrating atherosclerotic plaque seen involving the descending thoracic aorta measuring 7 mm diameter with a tiny penetrating atherosclerotic plaque suggested just cephalad. There is fusiform short segment aneurysmal dilatation of the infrarenal abdominal aorta britt suring 3.8 x 3.3 cm with the segment spanning centimeters. In this area of abdominal aortic aneurysm there is extensive mural wall thrombosis. There is no evidence for intramural hematoma within the aor ta on noncontrast imaging. Postcontrast imaging demonstrates no evidence for dissection.The visualize d vessels of the aortic arch are patent. The major vessels of the abdominal aorta are patent. PULMONARY ARTERIAL VASCULATURE: Normal caliber. LUNGS/ PLEURA: There are some scattered centrilobular and subtle paraseptal emphysematous changes see n most pronounced in the bilateral upper lobes. No focal consolidations, pleural effusions or pneumot horax. Bibasilar atelectasis is present. AIRWAY: Patent and unremarkable. HEART: Size within normal limits.Left ventricular hypertrophy is suggested. MEDIASTINUM: Few nonenlarged lymph nodes are seen with no gross evidence of adenopathy. MUSCULOSKELETAL: No acute osseous abnormalities. Degenerative changes of the visualized spine are bartolome reciated. SOFT TISSUES/LYMPH NODES: Unremarkable. LOWER NECK: Subcentimeter hypodense nodule is seen in the left thyroid lobe.. Abdomen: LIVER: Unremarkable GALLBLADDER AND BILE DUCTS: The gallbladder is surgically absent. No biliary duct dilatation. PANCREAS: Unremarkable. SPLEEN: Unremarkable. ADRENAL GLANDS: Indeterminate left adrenal gland nodule measuring up to 1.0 cm. The right adrenal gla nd is unremarkable.. KIDNEYS AND URETERS: No evidence of hydronephrosis. Symmetric enhancement of the kidneys bilaterally. The ureters are unremarkable. PELVIS BLADDER: Unremarkable REPRODUCTIVE: The prostate is within normal size limits demonstrating coarse calcifications. There is a heterogenous attenuated mass/collection which appears to extend from the scrotum difficult to eulalia ure on this modality. ABDOMEN & PELVIS STOMACH AND BOWEL: Stomach is grossly unremarkable. The small bowel is of normal caliber. No evidence of bowel obstruction. PERITONEUM/RETROPERITONEUM: No evidence of pneumoperitoneum or free fluid. MUSCULOSKELETAL: No acute osseous abnormalities LYMPH NODES: No gross evidence for lymphadenopathy. SOFT TISSUE/ABDOMINAL WALL: Unremarkable IMPRESSION: 1. No evidence for acute thoracic aortic dissection. 2. Advanced calcified and noncalcified atherosclerotic disease of the aorta. There is a penetrating a therosclerotic ulcer seen in the descending thoracic aorta measuring up to 7 mm in diameter with an a dditional suggested small ulcer suggested cephalad. 3. 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 4. Nonspecific mass/fluid collection seen extending from the scrotum is incompletely evaluated on thi s modality. Correlate with any known history and prior imaging otherwise this can be further characte rized with a MRI pelvis with IV contrast or scrotal ultrasound. 5. There is a indeterminate left adrenal gland nodule measuring up to 1.0 cm. Correlate with any outs jannet imaging or known history. Otherwise this can also be further characterized with an MRI abdomen ad renal mass protocol with IV contrast on a nonemergent outpatient basis. [facility], , 09/29/2024 4:12 PM
--- NOTE | 2024-09-29 21:12 | P.PN ---
Subjective Progress Note Date: 09/29/24 Patient is a 54-year-old man with a past medical history of atrial fibrillation on anticoagulation with Eliquis, hypertension, hyperlipidemia, prostate disorder/bleed., Obstructive sleep apnea not wearing CPAP, history of CVA/TIA, ongoing hand prior history of smoking presents to ER with the complaints of not feeling well. Patient states that he is feeling very weak and not sleeping and not eating recently. Family called EMS as he was not taking his medications. Otherwise patient denied any complaints of chest pain or shortness of breath. No headache. No complaints of dizziness. No complaints of leg swelling. No nausea vomiting or diarrhea. EKG showed sinus rhythm with possible left atrial enlargement. Chest x-ray showed no acute cardiopulmonary process Laboratory data showed WBC 3.62, hemoglobin 13.2 and platelets 109. Lymphocytes 0.77, sodium 135 potassium 4.3 chloride 101 bicarb is 19 BUN 16 and creatinine 0.81 blood sugar 82 liver enzymes not elevated magnesium 1.8 troponin 0.166, 0.177 and 0.211 Urinalysis is negative for infection. 2D echocardiogram showed LVEF 55%, mild concentric LVH, no obvious regional wall motion abnormality. Normal LV size and systolic function. No significant valvular dysfunction. There is suspicion of possible dissection flap on ascending aorta. 09/29/2024 Patient is sitting in the chair. Awake alert and oriented. Denied any complaints of chest pain or shortness of breath. Patient states that he feels better. No complaints of headache or dizziness. Heart rate is controlled. Laboratory data showed WBC 2.9 hemoglobin 13.2 and platelets 112 sodium 137 potassium 2.6 chloride 105 bicarb is 28 BUN 14 creatinine 0.74 and blood sugar 88. Vitamin B12 519 and TSH 0.868 Influenza A B RSV and COVID-19 PCR not detected. Current medications reviewed. Objective - Vital Signs Vital signs: Vital Signs Temp 97.6 F 09/29/24 16:00 Pulse 75 09/29/24 16:00 Resp 18 09/29/24 16:00 BP 102/66 09/29/24 16:00 Pulse Ox 96 09/29/24 16:00 FiO2 Intake & Output 09/29/24 09/29/24 09/30/24 06:59 18:59 06:59 Intake Total 450 119.333 Output Total 150 100 Balance 300 19.333 Weight 73 kg 73 kg Intake: Intake, IV Titration 450 119.333 Amount Diltiazem 125 mg In 119.333 Dextrose 5% in Water 100 ml @ 5 MG/HR 5 mls/hr IV .Q24H [facility] Rx#:[id number] Sodium Chloride 0.9% 1, 450 000 ml @ 75 mls/hr IV . [id number] [facility] Rx#:[id number] Output: Urine 150 100 Other: Voiding Method Urinal Urinal Diaper Incontinent # Voids 1 1 # Bowel Movements 1 - Exam PHYSICAL EXAMINATION: Patient is lying in the bed comfortably, no acute distress, awake alert and oriented.. HEENT: Normocephalic. Neck is supple. Pupils reactive. Nostrils clear. Oral cavity is moist. Neck reveals no JVD, carotid bruits, or thyromegaly. CHEST EXAMINATION: Trachea is central. Symmetrical expansion. Lung resendez clear to auscultation and percussion. CARDIAC: Normal S1, S2 with no gallops. No murmurs ABDOMEN: Soft. Bowel sounds normal. No organomegaly. No abdominal bruits. Extremities: reveal no edema. No clubbing or cyanosis Neurologically awake, alert, oriented x3 with well-coordinated movements. No focal deficits noted Skin: No rash or skin lesions. Psychiatric: Coperative. Nonsuicidal Musculoskeletal: No joint swelling or deformity. Normal range of motion. - Labs CBC & Chem 7: 09/29/24 07:49 09/29/24 20:18 Labs: Abnormal Lab Results - Last 24 Hours (Table) 09/29/24 09/29/24 09/29/24 Range/Units 07:49 07:49 20:18 WBC 2.91 L (4.50-10.00) 10*3/uL RBC 4.24 L (4.40-5.60) 10*6/uL Hct 38.3 L (39.6-50.0) % Plt Count 112 L (140-440) 10*3/uL Neutrophils # 1.60 L (1.80-7.70) 10*3/uL Lymphocytes # 0.73 L (0.90-5.00) 10*3/uL Eosinophils # 0.00 L (0.04-0.35) 10*3/uL Potassium 2.6 L* 3.3 L (3.5-5.1) mmol/L Carbon Dioxide 20 L (22-30) mmol/L Assessment and Plan Assessment: Generalized weakness, fatigue and failure to thrive. Elevated troponin level possible non-ST elevated MD Paroxysmal atrial fibrillation with RVR on anticoagulation with Eliquis. Rate controlled Suspicious for dissection flap on ascending aorta. Less likely for cardiology Hypertension uncontrolled on admission Hyperlipidemia BPH GERD History of CVA/TIA. No residual weakness GERD Prior history of smoking DVT prophylaxis. Patient is on full anticoagulation Plan: Patient will be continued on telemonitoring. Continue with aspirin and statins. Cardizem drip has been discontinued.. Will start back on Eliquis once cleared by cardiology. Patient was started back on home medications. 2D echocardiogram shows suspicious for dissection flap. CT surgery was consulted. No intervention recommended. Cardiology is on board. Continue to follow closely. Prognosis is guarded. Time with Patient: Greater than 30
[2024-09-30] MEDS ORDERED: HEPARIN SODIUM 1,000 UN/ML (10ML VL) IV PRN (07:10)
--- NOTE | 2024-09-30 07:10 | P.PN ---
Subjective Progress Note Date: 09/29/24 History of present illness: This is an 84-year-old male patient of Dr. Dayo Chapman with past medical history of paroxysmal atrial fibrillation previously on Coumadin, hypertension, dyslipidemia. We have been asked to evaluate the patient for NSTEMI. Patient was brought into the hospital with concern for decreased appetite for a couple of days, weakness, not sleeping well and not taking his medications. There is concern for failure to thrive. Patient denies chest pain or chest pressure. He is a very poor historian appears very weak. Blood pressure 140/91, heart rate 85, pulse ox 95% on room air. Patient has been started on a heparin drip and Nitropaste. Regarding anticoagulation, patient was previously on Coumadin during his last office visit on 04/30/2024. It appears he was recently started on a Xarelto starter pack. Patient is seen today in the emergency center waiting for a bed on the cardiac stepdown unit. -EKG:sinus with t wave inversions present on previous EKGs. -Chest x-ray:no acute process. -Laboratory studies: Troponin 0.166, 0.177, 0.211 -Home cardiac medications: Cardizem 120 mg daily, Xarelto starter pack, rosuvastatin. -Echocardiogram performed in the office in 2019 revealed normal LV size and function with mild concentric hypertrophy. Mild mitral regurgitation. Mild tricuspid regurgitation. Mild pulmonic regurgitation. -Dobutamine Cardiolite stress test performed 11/10/2021 with inconclusive EKG portion of the test due to baseline EKG abnormalities. Dobutamine induced atrial fibrillation. Normal myocardial perfusion and function. Progress note 09/29/2024 Seen and examined at bedside this a.m. CTA aorta did not show any evidence of dissection however did show 3.8 cm infrarenal aorta with layered mural thrombus. Denies any chest pain chest pressure. Continues to be in atrial for 20. Physical examination: HEENT: Head is atraumatic, normocephalic. Pupils equal, round. Sclerae is anicteric. NECK: Supple. No JVD. LUNGS: Clear to auscultation. No wheezes or rhonchi. No intercostal retractions. HEART: Irregular pulse, no murmurs ABDOMEN: Soft No tenderness. EXTREMITIES: No pedal edema. No calf tenderness. NEUROLOGICAL: Patient is awake. Assessment: Generalized weakness and fatigue NSTEMI, possible type II but cannot rule out type I Coronary artery calcification Atherosclerosis and LAD mural thrombus and infrarenal aorta measuring 3.8 cm Paroxysmal atrial fibrillation, currently rate controlled A-fib Hypertension Dyslipidemia Plan: Continue current medications Further recommendations to follow Objective - Vital Signs Vital signs: Vital Signs Temp 97.5 F L 09/30/24 04:00 Pulse 129 H 09/30/24 04:00 Resp 18 09/30/24 04:00 BP 113/71 09/30/24 04:00 Pulse Ox 95 09/30/24 04:00 FiO2 Intake & Output 09/29/24 09/30/24 09/30/24 18:59 06:59 18:59 Intake Total 119.333 150 Output Total 100 100 Balance 19.333 50 Weight 73 kg 74 kg Intake: Intake, IV Titration 119.333 150 Amount Diltiazem 125 mg In 119.333 0 Dextrose 5% in Water 100 ml @ 5 MG/HR 5 mls/hr IV .Q24H [facility] Rx#:[id number] Sodium Chloride 0.9% 1, 150 000 ml @ 75 mls/hr IV . [id number] [facility] Rx#:[id number] Output: Urine 100 100 Other: Voiding Method Urinal Toilet Urinal # Voids 1 1 # Bowel Movements 1 - Labs CBC & Chem 7: 09/29/24 07:49 09/29/24 20:18 Labs: Abnormal Lab Results - Last 24 Hours (Table) 09/29/24 09/29/24 09/29/24 Range/Units 07:49 07:49 20:18 WBC 2.91 L (4.50-10.00) 10*3/uL RBC 4.24 L (4.40-5.60) 10*6/uL Hct 38.3 L (39.6-50.0) % Plt Count 112 L (140-440) 10*3/uL Neutrophils # 1.60 L (1.80-7.70) 10*3/uL Lymphocytes # 0.73 L (0.90-5.00) 10*3/uL Eosinophils # 0.00 L (0.04-0.35) 10*3/uL Potassium 2.6 L* 3.3 L (3.5-5.1) mmol/L Carbon Dioxide 20 L (22-30) mmol/L
[2024-09-30] MEDS ORDERED: NITROGLYCERIN SL TABS 0.4 MG TAB SUBLINGUAL PRN (07:19)
[2024-09-30] MEDS ORDERED: ALPRAZolam 0.25 MG TAB PO PRN (07:19)
--- NOTE | 2024-09-30 07:19 | P.PN ---
Subjective Progress Note Date: 09/30/24 History of present illness: This is an 84-year-old male patient of Dr. Dayo Chapman with past medical history of paroxysmal atrial fibrillation previously on Coumadin, hypertension, dyslipidemia. We have been asked to evaluate the patient for NSTEMI. Patient was brought into the hospital with concern for decreased appetite for a couple of days, weakness, not sleeping well and not taking his medications. There is concern for failure to thrive. Patient denies chest pain or chest pressure. He is a very poor historian appears very weak. Blood pressure 140/91, heart rate 85, pulse ox 95% on room air. Patient has been started on a heparin drip and Nitropaste. Regarding anticoagulation, patient was previously on Coumadin during his last office visit on 04/30/2024. It appears he was recently started on a Xarelto starter pack. Patient is seen today in the emergency center waiting for a bed on the cardiac stepdown unit. -EKG:sinus with t wave inversions present on previous EKGs. -Chest x-ray:no acute process. -Laboratory studies: Troponin 0.166, 0.177, 0.211 -Home cardiac medications: Cardizem 120 mg daily, Xarelto starter pack, rosuvastatin. -Echocardiogram performed in the office in 2019 revealed normal LV size and function with mild concentric hypertrophy. Mild mitral regurgitation. Mild tricuspid regurgitation. Mild pulmonic regurgitation. -Dobutamine Cardiolite stress test performed 11/10/2021 with inconclusive EKG portion of the test due to baseline EKG abnormalities. Dobutamine induced atrial fibrillation. Normal myocardial perfusion and function. Progress note 09/29/2024 Seen and examined at bedside this a.m. CTA aorta did not show any evidence of dissection however did show 3.8 cm infrarenal aorta with layered mural thrombus. Denies any chest pain chest pressure. Continues to be in atrial fibrillation telemetry 09/30/2024 Patient is seen and examined at bedside this a.m. Denies any chest pain chest pressure however continues to have fatigue symptoms. continues to be in atrial fibrillation. Heart rate is not bleeding from 90 to 120 bpm Physical examination: HEENT: Head is atraumatic, normocephalic. Pupils equal, round. Sclerae is anicteric. NECK: Supple. No JVD. LUNGS: Clear to auscultation. No wheezes or rhonchi. No intercostal retractions. HEART: Irregular pulse, no murmurs ABDOMEN: Soft No tenderness. EXTREMITIES: No pedal edema. No calf tenderness. NEUROLOGICAL: Patient is awake. 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 Eventually consider rhythm control strategy for his atrial fibrillation. Appears that his atrial fibrillation is not very old started on anticoagulation. I will load him with amiodarone for now for short-term. 200 mg 3 times daily for 1 week thereafter from 10/08/2024 reduced to 200 mg twice daily, thereafter from 10/15/2024 reduced to 200 mg daily. Consider outpatient CONNIE and ablation evaluation. Objective - Vital Signs Vital signs: Vital Signs Temp 97.5 F L 09/30/24 04:00 Pulse 129 H 09/30/24 04:00 Resp 18 09/30/24 04:00 BP 113/71 09/30/24 04:00 Pulse Ox 95 09/30/24 04:00 FiO2 Intake & Output 09/29/24 09/30/24 09/30/24 18:59 06:59 18:59 Intake Total 119.333 150 Output Total 100 100 Balance 19.333 50 Weight 73 kg 74 kg Intake: Intake, IV Titration 119.333 150 Amount Diltiazem 125 mg In 119.333 0 Dextrose 5% in Water 100 ml @ 5 MG/HR 5 mls/hr IV .Q24H [facility]IR Rx#:[id number] Sodium Chloride 0.9% 1, 150 000 ml @ 75 mls/hr IV . [id number] SAMIR Rx#:[id number] Output: Urine 100 100 Other: Voiding Method Urinal Toilet Urinal # Voids 1 1 # Bowel Movements 1 - Labs CBC & Chem 7: 09/29/24 07:49 06/07/25 20:18 Labs: Abnormal Lab Results - Last 24 Hours (Table) 09/29/24 09/29/24 09/29/24 Range/Units 07:49 07:49 20:18 WBC 2.91 L (4.50-10.00) 10*3/uL RBC 4.24 L (4.40-5.60) 10*6/uL Hct 38.3 L (39.6-50.0) % Plt Count 112 L (140-440) 10*3/uL Neutrophils # 1.60 L (1.80-7.70) 10*3/uL Lymphocytes # 0.73 L (0.90-5.00) 10*3/uL Eosinophils # 0.00 L (0.04-0.35) 10*3/uL Potassium 2.6 L* 3.3 L (3.5-5.1) mmol/L Carbon Dioxide 20 L (22-30) mmol/L
[2024-09-30] MEDS: METOPROLOL SUCCINATE (ER) 50 MG TAB.ER.24H PO SCH (08:08)
[2024-09-30] MEDS: AMIODARONE 200 MG TAB PO SCH (08:08)
[2024-09-30] MEDS: MAGNESIUM SULFATE-D5W PMX 1 GM in DEXTROSE/WATER 1 100ML.BAG IVPB SCH ×2 (08:10→15:18)
[2024-09-30 09:43] LABS: Basophils # (A) 0.01 10*3/uL (0.00-0.10); Basophils % (A) 0.4 %; Eosinophils # (A) 0.01 10*3/uL (0.04-0.35); Eosinophils % (A) 0.4 %; HCT 35.6 % (39.6-50.0); HGB 12.5 g/dL (13.0-17.0); Lymphocytes # (A) 0.64 10*3/uL (0.90-5.00); Lymphocytes % (A) 26.1 %; MCH 31.5 pg (27.0-32.0); MCHC 35.1 g/dL (32.0-37.0); MCV 89.7 fL (80.0-97.0); Mean Platelet Volume 11.4 fL (9.5-12.2); Monocytes # (A) 0.41 10*3/uL (0.20-1.00); Monocytes % (A) 16.7 %; Neutrophils # (A) 1.37 10*3/uL (1.80-7.70); Platelet Count 109 10*3/uL (140-440); RBC 3.97 10*6/uL (4.40-5.60); RDW 15.9 % (11.5-14.5); WBC 2.45 10*3/uL (4.50-10.00)
[2024-09-30 09:58] LABS: African American GFR (CKD) >90 (>60 ml/min/1.73 sqM); Anion Gap 8 mmol/L; Blood Urea Nitrogen 11 mg/dL (9-20); Calcium 8.7 mg/dL (8.4-10.2); Carbon Dioxide 20 mmol/L (22-30); Chloride 109 mmol/L (98-107); Glucose 115 mg/dL (74-99); Magnesium 1.5 mg/dL (1.6-2.3); Non-African American GFR(CKD) 87 (>60 ml/min/1.73 sqM); Potassium 3.6 mmol/L (3.5-5.1); Sodium 137 mmol/L (137-145)
[2024-09-30 09:59] LABS: Partial Thromboplastin Time 29.1 sec (22.0-30.0); Prothrombin Time 11.4 sec (10.0-12.5)
[2024-09-30 10:03] LABS: NT-Pro-B-Type Natriuretic Pept 4280 pg/mL
[2024-09-30] MEDS: ACETAMINOPHEN TAB 325 MG TAB PO PRN (10:21)
[2024-09-30] MEDS: HEPARIN SOD,PORK IN 0.45% NACL 25,000 UNIT in 0.45% NACL 1 250ML.BAG IV SCH (10:22)
[2024-09-30] MEDS: SODIUM CHLORIDE 0.9% 500 ML 500 ML IV ONE ×2 (13:29→17:38)
[2024-09-30] MEDS ORDERED: MAGNESIUM SULFATE-D5W PMX 1 GM in DEXTROSE/WATER 1 100ML.BAG IVPB SCH (14:45)
[2024-09-30] MEDS: POTASSIUM CHLORIDE ER 20 MEQ TAB.ER PO STA (15:18)
[2024-09-30] MEDS ORDERED: RIVAROXABAN 20 MG TAB PO SCH (17:30)
[2024-10-01] MEDS: SODIUM CHLORIDE 0.9% 1,000 ML in EMPTY BAG 1 BAG IV SCH (04:00)
[2024-10-01] MEDS: METOPROLOL SUCCINATE (ER) 25 MG TAB.ER.24H PO SCH (06:01)
[2024-10-01] MEDS ORDERED: HEPARIN SODIUM,PORCINE (1 ML) 2,500 UNIT in SODIUM CHLORIDE 0.9% 250 ML IRRIGATION PRN (07:00)
[2024-10-01] MEDS ORDERED: HEPARIN SODIUM,PORCINE 10,000 UNIT in SODIUM CHLORIDE 0.9% 1,000 ML IRRIGATION PRN (07:00)
[2024-10-01 07:33] LABS: Eosinophils # (A) 0.03 10*3/uL (0.04-0.35); Eosinophils % (A) 1.4 %; HCT 34.6 % (39.6-50.0); HGB 11.9 g/dL (13.0-17.0); Lymphocytes # (A) 0.74 10*3/uL (0.90-5.00); Lymphocytes % (A) 35.4 %; MCH 31.4 pg (27.0-32.0); MCHC 34.4 g/dL (32.0-37.0); MCV 91.3 fL (80.0-97.0); Mean Platelet Volume 11.6 fL (9.5-12.2); Monocytes # (A) 0.32 10*3/uL (0.20-1.00); Monocytes % (A) 15.3 %; Neutrophils % (A) 47.9 %; Platelet Count 109 10*3/uL (140-440); RBC 3.79 10*6/uL (4.40-5.60); RDW 16.2 % (11.5-14.5); WBC 2.09 10*3/uL (4.50-10.00)
[2024-10-01 07:37] LABS: Prothrombin Time 11.2 sec (10.0-12.5)
[2024-10-01 07:53] LABS: African American GFR (CKD) >90 (>60 ml/min/1.73 sqM); Anion Gap 6 mmol/L; Blood Urea Nitrogen 10 mg/dL (9-20); Calcium 8.2 mg/dL (8.4-10.2); Carbon Dioxide 18 mmol/L (22-30); Chloride 113 mmol/L (98-107); Glucose 92 mg/dL (74-99); Non-African American GFR(CKD) 86 (>60 ml/min/1.73 sqM); Potassium 3.8 mmol/L (3.5-5.1); Sodium 137 mmol/L (137-145)
--- NOTE | 2024-10-01 13:24 | P.PN ---
Subjective HISTORY OF PRESENT ILLNESS: This is an 84-year-old male patient of Dr. Dayo Chapman with past medical history of paroxysmal atrial fibrillation previously on Coumadin, hypertension, dyslipidemia. We have been asked to evaluate the patient for NSTEMI. Patient was brought into the hospital with concern for decreased appetite for a couple of days, weakness, not sleeping well and not taking his medications. There is concern for failure to thrive. Patient denies chest pain or chest pressure. He is a very poor historian appears very weak. Blood pressure 140/91, heart rate 85, pulse ox 95% on room air. Patient has been started on a heparin drip and Nitropaste. Regarding anticoagulation, patient was previously on Coumadin during his last office visit on 04/30/2024. It appears he was recently started on a Xarelto starter pack. Patient is seen today in the emergency center waiting for a bed on the cardiac stepdown unit. -EKG:sinus with t wave inversions present on previous EKGs. -Chest x-ray:no acute process. -Laboratory studies: Troponin 0.166, 0.177, 0.211 -Home cardiac medications: Cardizem 120 mg daily, Xarelto starter pack, rosu vastatin. -Echocardiogram performed in the office in 2019 revealed normal LV size and function with mild concentric hypertrophy. Mild mitral regurgitation. Mild tricuspid regurgitation. Mild pulmonic regurgitation. -Dobutamine Cardiolite stress test performed 11/10/2021 with inconclusive EKG portion of the test due to baseline EKG abnormalities. Dobutamine induced atrial fibrillation. Normal myocardial perfusion and function. 10/01/2024 Patient examined this morning at bedside. Patient currently denies chest pain or pressure. He denies shortness of breath. Vital signs are stable. Telemetry reveals atrial fibrillation with controlled ventricular rate. Patient was scheduled for cardiac catheterization today. However due to scheduling difficulties, this will be rescheduled for tomorrow PHYSICAL EXAM: VITAL SIGNS: Reviewed. GENERAL: Well-developed in no acute distress. NECK: Supple. No JVD or thyromegaly LUNGS: Respirations even and unlabored. Lungs essentially clear to auscultation bilaterally. HEART: Irregular rate and rhythm. S1 and S2 heard. EXTREMITIES: Normal range of motion. No clubbing or cyanosis. Peripheral pulses intact. 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 Xarelto remains on hold Continue amiodarone, aspirin, Lipitor, metoprolol N.p.o. at midnight Patient to undergo cardiac catheterization tomorrow with Dr. Chapman Further recommendations pending patient course Nurse practitioner note has been reviewed by physician. Signing provider agrees with the documented findings, assessment, and plan of care documented by LABEL DRIER as a scribe. Objective - Vital Signs Vital signs: Vital Signs Temp 97.8 F 10/01/24 08:48 Pulse 80 10/01/24 08:48 Resp 16 10/01/24 08:48 BP 121/79 10/01/24 08:48 Pulse Ox 96 10/01/24 08:48 FiO2 Intake & Output 09/30/24 10/01/24 10/01/24 18:59 06:59 18:59 Intake Total 96.635 50.394 Output Total 300 200 Balance 96.635 -249.606 -200 Weight 74 kg Intake: Intake, IV Titration 96.635 50.394 Amount Diltiazem 125 mg In 27.667 Dextrose 5% in Water 100 ml @ 5 MG/HR 5 mls/hr IV .Q24H [facility]IR Rx#:[id number] Heparin Sod,Pork in 0.45% 68.968 50.394 NaCl 25,000 unit In 0.45 % NaCl 1 250ml.bag @ 12 UNITS/KG/HR 8.88 mls/hr IV .Q24H SAMIR Rx#: [id number] Output: Urine 300 200 Other: Voiding Method Toilet Toilet Toilet Urinal Urinal Urinal # Voids 1 2 - Labs CBC & Chem 7: 10/01/24 06:29 10/01/24 06:29 Labs: Abnormal Lab Results - Last 24 Hours (Table) 09/30/24 10/01/24 10/01/24 Range/Units 17:06 02:31 06:29 WBC 2.09 L (4.50-10.00) 10*3/uL RBC 3.79 L (4.40-5.60) 10*6/uL Hgb 11.9 L (13.0-17.0) g/dL Hct 34.6 L (39.6-50.0) % Plt Count 109 L (140-440) 10*3/uL Neutrophils # 1.00 L (1.80-7.70) 10*3/uL Lymphocytes # 0.74 L (0.90-5.00) 10*3/uL Eosinophils # 0.03 L (0.04-0.35) 10*3/uL APTT 124.5 H* 79.0 H (22.0-30.0) sec Chloride (98-107) mmol/L Carbon Dioxide (22-30) mmol/L Calcium (8.4-10.2) mg/dL 10/01/24 10/01/24 Range/Units 06:29 09:36 WBC (4.50-10.00) 10*3/uL RBC (4.40-5.60) 10*6/uL Hgb (13.0-17.0) g/dL Hct (39.6-50.0) % Plt Count (140-440) 10*3/uL Neutrophils # (1.80-7.70) 10*3/uL Lymphocytes # (0.90-5.00) 10*3/uL Eosinophils # (0.04-0.35) 10*3/uL APTT 62.1 H (22.0-30.0) sec Chloride 113 H (98-107) mmol/L Carbon Dioxide 18 L (22-30) mmol/L Calcium 8.2 L (8.4-10.2) mg/dL
[2024-10-02 06:19] LABS: Glucose,Whole Blood 90 mg/dL (70-110)
[2024-10-02 07:13] LABS: Basophils # (A) 0.01 10*3/uL (0.00-0.10); Basophils % (A) 0.4 %; Eosinophils # (A) 0.01 10*3/uL (0.04-0.35); Eosinophils % (A) 0.4 %; HCT 34.4 % (39.6-50.0); HGB 11.7 g/dL (13.0-17.0); Immature Platelet Fraction 4.6 % (1.1-6.1); Lymphocytes # (A) 0.84 10*3/uL (0.90-5.00); Lymphocytes % (A) 30.1 %; MCH 31.3 pg (27.0-32.0); Mean Platelet Volume 11.4 fL (9.5-12.2); Monocytes # (A) 0.29 10*3/uL (0.20-1.00); Monocytes % (A) 10.4 %; Neutrophils # (A) 1.63 10*3/uL (1.80-7.70); Neutrophils % (A) 58.3 %; Platelet Count 108 10*3/uL (140-440); RBC 3.74 10*6/uL (4.40-5.60); RDW 16.4 % (11.5-14.5); WBC 2.79 10*3/uL (4.50-10.00)
[2024-10-02] MEDS: MIDAZOLAM 2 MG/2 ML VIAL IVP ONE ×2 (07:26→07:35)
[2024-10-02] MEDS: fentaNYL (PF) 50 MCG/1 ML VIAL IVP ONE (07:26)
[2024-10-02] MEDS: VERAPAMIL SYRINGE (5 MG/10 ML) INTRAARTER ONE (07:26)
[2024-10-02] MEDS: LIDOCAINE 1% INJ 10MG/ML (30 ML VIAL-PF) SQ ONE (07:26)
[2024-10-02] MEDS: IV FLUID CONTINUATION 1,000 ML IV ONE (07:27)
[2024-10-02] MEDS: HEPARIN SODIUM 1,000 UN/ML (10ML VL) IVP ONE (07:32)
[2024-10-02 07:40] LABS: African American GFR (CKD) >90 (>60 ml/min/1.73 sqM); Anion Gap 6 mmol/L; Blood Urea Nitrogen 9 mg/dL (9-20); Calcium 8.5 mg/dL (8.4-10.2); Carbon Dioxide 20 mmol/L (22-30); Chloride 112 mmol/L (98-107); Glucose 91 mg/dL (74-99); Non-African American GFR(CKD) 85 (>60 ml/min/1.73 sqM); Potassium 3.7 mmol/L (3.5-5.1); Sodium 138 mmol/L (137-145)
[2024-10-02] MEDS ORDERED: RX INFO: IV CONTRAST WAS GIVEN 1 EACH MISC MISCELLANE PRN (07:52)
[2024-10-02] MEDS: IOPAMIDOL-370 200ML BTL INTRATHECA ONE (07:56)
[2024-10-02] MEDS: HEPARIN SODIUM,PORCINE 10,000 UNIT in SODIUM CHLORIDE 0.9% 1,000 ML IRRIGATION ONE (07:57)
[2024-10-02] MEDS: HEPARIN SODIUM,PORCINE (1 ML) 2,500 UNIT in SODIUM CHLORIDE 0.9% 250 ML IRRIGATION ONE (07:57)
--- NOTE | 2024-10-02 08:41 | CC ---
CARDIAC CATHETERIZATION REPORT INDICATION: Non ST-segment elevation [place]. PROCEDURE NOTE: After obtaining informed consent, left heart catheterization and coronary angiogram were performed via the right radial artery using standard Maria catheters. The patient tolerated the procedure well without any obvious immediate complications. Total sedation time was 18 minutes. Right radial artery access was obtained using Seldinger technique. A 6-German sheath was placed. Catheters and wires were floated into the ascending aorta under fluoroscopic guidance. The patient was on heparin received until he was brought on for the catheterization. I gave him an additional 500 units of heparin. He received verapamil per protocol. The procedure was completed uneventfully. FINDINGS: 1. Hemodynamics: Left ventricular end-diastolic pressure is 20 mm. There is no significant gradient across the aortic valve. 2. Left ventriculogram: Left ventriculogram is not performed. 3. Angiographic data: a.Right coronary artery: Right coronary artery is a large dominant vessel that shows mild nonobstructive disease. b.Left main coronary artery appears calcified, but is free of significant stenosis. Divides into left anterior descending coronary artery and circumflex coronary artery. LAD shows mild nonobstructive disease in its midportion. c. Circumflex coronary artery shows a focal 60% stenosis. CONCLUSIONS: A 60% stenosis involving circumflex coronary artery. PLAN: I am going to have Dr. Martinez the on-call ent nurse, review the angiographic data and see if he needs to do an IFR. We should continue with medical therapy at this time. MMODL / IJN: [id number] /
--- NOTE | 2024-10-02 10:58 | P.PN ---
Subjective HISTORY OF PRESENT ILLNESS: This is an 84-year-old male patient of Dr. Dayo Chapman with past medical history of paroxysmal atrial fibrillation previously on Coumadin, hypertension, dyslipidemia. We have been asked to evaluate the patient for NSTEMI. Patient was brought into the hospital with concern for decreased appetite for a couple of days, weakness, not sleeping well and not taking his medications. There is concern for failure to thrive. Patient denies chest pain or chest pressure. He is a very poor historian appears very weak. Blood pressure 140/91, heart rate 85, pulse ox 95% on room air. Patient has been started on a heparin drip and Nitropaste. Regarding anticoagulation, patient was previously on Coumadin during his last office visit on 04/30/2024. It appears he was recently started on a Xarelto starter pack. Patient is seen today in the emergency center waiting for a bed on the cardiac stepdown unit. -EKG:sinus with t wave inversions present on previous EKGs. -Chest x-ray:no acute process. -Laboratory studies: Troponin 0.166, 0.177, 0.211 -Home cardiac medications: Cardizem 120 mg daily, Xarelto starter pack, rosu vastatin. -Echocardiogram performed in the office in 2019 revealed normal LV size and function with mild concentric hypertrophy. Mild mitral regurgitation. Mild tricuspid regurgitation. Mild pulmonic regurgitation. -Dobutamine Cardiolite stress test performed 11/10/2021 with inconclusive EKG portion of the test due to baseline EKG abnormalities. Dobutamine induced atrial fibrillation. Normal myocardial perfusion and function. 10/01/2024 Patient examined this morning at bedside. Patient currently denies chest pain or pressure. He denies shortness of breath. Vital signs are stable. Telemetry reveals atrial fibrillation with controlled ventricular rate. Patient was scheduled for cardiac catheterization today. However due to scheduling difficulties, this will be rescheduled for tomorrow 10/02/2024 Patient seen and examined resting comfortably in bed. He underwent cardiac catheterization this morning with Dr. Santo via the right radial artery. He has 60% disease of the circumflex artery, medical management recommended. Blood pressure 148/87 heart rate 82 afebrile maintaining oxygen saturation on room air. PHYSICAL EXAM: VITAL SIGNS: Reviewed. GENERAL: Well-developed in no acute distress. NECK: Supple. No JVD or thyromegaly LUNGS: Respirations even and unlabored. Lungs essentially clear to auscultation bilaterally. HEART: Irregular rate and rhythm. S1 and S2 heard. EXTREMITIES: Normal range of motion. No clubbing or cyanosis. Peripheral pulses intact. No lower extremity edema. Right radial access site with TR band in place. Pulses intact. 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 Follow-up with Dr. Santo in the office in 1 week. Nurse practitioner note has been reviewed by physician. Signing provider agrees with the documented findings, assessment, and plan of care documented by ESCALATION ENGINEER as a scribe. Objective - Vital Signs Vital signs: Vital Signs Temp 98.5 F 10/02/24 08:07 Pulse 82 10/02/24 09:37 Resp 16 10/02/24 09:37 BP 148/87 10/02/24 09:37 Pulse Ox 92 L 10/02/24 09:37 FiO2 Intake & Output 10/01/24 10/02/24 10/02/24 18:59 06:59 18:59 Intake Total 130.638 100 Output Total 200 300 Balance -200 -169.362 100 Weight 77.5 kg Intake: IV 100 Intake, IV Titration 130.638 Amount Heparin Sod,Pork in 0.45% 130.638 NaCl 25,000 unit In 0.45 % NaCl 1 250ml.bag @ 12 UNITS/KG/HR 8.88 mls/hr IV .Q24H [facility]IR Rx#: [id number] Output: Urine 200 300 Other: Voiding Method Toilet Toilet Urinal Urinal # Voids 1 1 # Bowel Movements 1 - Labs CBC & Chem 7: 10/02/24 06:40 10/02/24 06:40 Labs: Abnormal Lab Results - Last 24 Hours (Table) 10/02/24 10/02/24 10/02/24 Range/Units 06:40 06:40 06:40 WBC 2.79 L (4.50-10.00) 10*3/uL RBC 3.74 L (4.40-5.60) 10*6/uL Hgb 11.7 L (13.0-17.0) g/dL Hct 34.4 L (39.6-50.0) % Plt Count 108 L (140-440) 10*3/uL Neutrophils # 1.63 L (1.80-7.70) 10*3/uL Lymphocytes # 0.84 L (0.90-5.00) 10*3/uL Eosinophils # 0.01 L (0.04-0.35) 10*3/uL APTT 38.3 H (22.0-30.0) sec Chloride 112 H (98-107) mmol/L Carbon Dioxide 20 L (22-30) mmol/L
[2024-10-02 11:02] VITALS: BMI 27.6
[2024-10-02] MEDS: ISOSORBIDE MONONITRATE ER 30 MG TAB.ER.24H PO SCH (11:55)
--- NOTE | 2024-10-02 20:35 | P.PN ---
Subjective Progress Note Date: 09/30/24 Patient is a 54-year-old man with a past medical history of atrial fibrillation on anticoagulation with Eliquis, hypertension, hyperlipidemia, prostate disorder/bleed., Obstructive sleep apnea not wearing CPAP, history of CVA/TIA, ongoing hand prior history of smoking presents to ER with the complaints of not feeling well. Patient states that he is feeling very weak and not sleeping and not eating recently. Family called EMS as he was not taking his medications. Otherwise patient denied any complaints of chest pain or shortness of breath. No headache. No complaints of dizziness. No complaints of leg swelling. No nausea vomiting or diarrhea. EKG showed sinus rhythm with possible left atrial enlargement. Chest x-ray showed no acute cardiopulmonary process Laboratory data showed WBC 3.62, hemoglobin 13.2 and platelets 109. Lymphocytes 0.77, sodium 135 potassium 4.3 chloride 101 bicarb is 19 BUN 16 and creatinine 0.81 blood sugar 82 liver enzymes not elevated magnesium 1.8 troponin 0.166, 0.177 and 0.211 Urinalysis is negative for infection. 2D echocardiogram showed LVEF 55%, mild concentric LVH, no obvious regional wall motion abnormality. Normal LV size and systolic function. No significant valvular dysfunction. There is suspicion of possible dissection flap on ascending aorta. 09/29/2024 Patient is sitting in the chair. Awake alert and oriented. Denied any complaints of chest pain or shortness of breath. Patient states that he feels better. No complaints of headache or dizziness. Heart rate is controlled. Laboratory data showed WBC 2.9 hemoglobin 13.2 and platelets 112 sodium 137 potassium 2.6 chloride 105 bicarb is 28 BUN 14 creatinine 0.74 and blood sugar 88. Vitamin B12 519 and TSH 0.868 Influenza A B RSV and COVID-19 PCR not detected. 09/30/2024 Patient is resting in the bed comfortably. Awake alert and oriented. Mentation at baseline. Remains in atrial fibrillation. Heart rate controlled with Toprol-XL 50 mg daily. Patient is also on amiodarone. Denied any complaints of chest pain or shortness of breath. Laboratory data showed WBC 2.45 hemoglobin 12.5 and platelets 109 sodium 137 potassium 3.6 chloride 109 bicarb is 20 BUN 11 creatinine 0.71 and blood sugar 115 and magnesium 1.5 which is being replaced. proBNP 4280. CTA thorax showed no evidence for acute thoracic aortic dissection. Advanced calcification atherosclerotic disease of the aorta. Penetrating atherosclerotic ulcer seen in the descending thoracic aorta measuring up to 7 mm in diameter with an additional suggestion of small ulcer suggesting cephalad. 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 Nonspecific mass/fluid collection seen extending from the scrotum is incompletely evaluated on this modality. Indeterminate left adrenal gland nodule measuring up to 1 cm. Current medications reviewed. Objective - Vital Signs Vital signs: Vital Signs Temp 98.5 F 09/30/24 07:52 Pulse 133 H 09/30/24 07:52 Resp 16 09/30/24 07:52 BP 95/62 09/30/24 13:38 Pulse Ox 94 L 09/30/24 07:52 FiO2 Intake & Output 09/29/24 09/30/24 09/30/24 18:59 06:59 18:59 Intake Total 119.333 150 27.667 Output Total 100 100 Balance 19.333 50 27.667 Weight 73 kg 74 kg Intake: Intake, IV Titration 119.333 150 27.667 Amount Diltiazem 125 mg In 119.333 0 27.667 Dextrose 5% in Water 100 ml @ 5 MG/HR 5 mls/hr IV .Q24H [facility]IR Rx#:[id number] Sodium Chloride 0.9% 1, 150 000 ml @ 75 mls/hr IV . [id number] [facility]IR Rx#:[id number] Output: Urine 100 100 Other: Voiding Method Urinal Toilet Toilet Urinal Urinal # Voids 1 1 # Bowel Movements 1 - Exam PHYSICAL EXAMINATION: Patient is lying in the bed comfortably, no acute distress, awake alert and oriented.. HEENT: Normocephalic. Neck is supple. Pupils reactive. Nostrils clear. Oral cavity is moist. Neck reveals no JVD, carotid bruits, or thyromegaly. CHEST EXAMINATION: Trachea is central. Symmetrical expansion. Lung resendez clear to auscultation and percussion. CARDIAC: Normal S1, S2 with no gallops. No murmurs ABDOMEN: Soft. Bowel sounds normal. No organomegaly. No abdominal bruits. Extremities: reveal no edema. No clubbing or cyanosis Neurologically awake, alert, oriented x3 with well-coordinated movements. No focal deficits noted Skin: No rash or skin lesions. Psychiatric: Coperative. Nonsuicidal Musculoskeletal: No joint swelling or deformity. Normal range of motion. - Labs CBC & Chem 7: 10/02/24 06:40 10/02/24 06:40 Labs: Abnormal Lab Results - Last 24 Hours (Table) 09/29/24 09/30/24 09/30/24 Range/Units 20:18 08:50 08:50 WBC 2.45 L (4.50-10.00) 10*3/uL RBC 3.97 L (4.40-5.60) 10*6/uL Hgb 12.5 L (13.0-17.0) g/dL Hct 35.6 L (39.6-50.0) % Plt Count 109 L (140-440) 10*3/uL Neutrophils # 1.37 L (1.80-7.70) 10*3/uL Lymphocytes # 0.64 L (0.90-5.00) 10*3/uL Eosinophils # 0.01 L (0.04-0.35) 10*3/uL Potassium 3.3 L (3.5-5.1) mmol/L Chloride 109 H (98-107) mmol/L Carbon Dioxide 20 L (22-30) mmol/L Glucose 115 H (74-99) mg/dL Magnesium 1.5 L (1.6-2.3) mg/dL Assessment and Plan Assessment: Generalized weakness, fatigue and failure to thrive. Elevated troponin level possible non-ST elevated [place] Paroxysmal atrial fibrillation with RVR on anticoagulation with Eliquis. Rate controlled Suspicious for dissection flap on ascending aorta. Less likely for cardiology Hypertension uncontrolled on admission Hyperlipidemia BPH GERD History of CVA/TIA. No residual weakness GERD Prior history of smoking DVT prophylaxis. Patient is on full anticoagulation Plan: Patient will be continued on telemonitoring. Continue with aspirin and statins. Cardizem drip has been discontinued.. Patient was restarted on heparin drip. Cardiology is planning for catheterization likely on Tuesday. Will start back on Eliquis once cleared by cardiology. Patient was started back on home medications. 2D echocardiogram shows suspicious for dissection flap. CT surgery was consulted. No intervention recommended. Cardiology is on board. Continue to follow closely. Prognosis is guarded. Time with Patient: Greater than 30
--- NOTE | 2024-10-02 22:22 | P.PN ---
Subjective Progress Note Date: 10/01/24 Patient is a 54-year-old man with a past medical history of atrial fibrillation on anticoagulation with Eliquis, hypertension, hyperlipidemia, prostate disorder/bleed., Obstructive sleep apnea not wearing CPAP, history of CVA/TIA, ongoing hand prior history of smoking presents to ER with the complaints of not feeling well. Patient states that he is feeling very weak and not sleeping and not eating recently. Family called EMS as he was not taking his medications. Otherwise patient denied any complaints of chest pain or shortness of breath. No headache. No complaints of dizziness. No complaints of leg swelling. No nausea vomiting or diarrhea. EKG showed sinus rhythm with possible left atrial enlargement. Chest x-ray showed no acute cardiopulmonary process Laboratory data showed WBC 3.62, hemoglobin 13.2 and platelets 109. Lymphocytes 0.77, sodium 135 potassium 4.3 chloride 101 bicarb is 19 BUN 16 and creatinine 0.81 blood sugar 82 liver enzymes not elevated magnesium 1.8 troponin 0.166, 0.177 and 0.211 Urinalysis is negative for infection. 2D echocardiogram showed LVEF 55%, mild concentric LVH, no obvious regional wall motion abnormality. Normal LV size and systolic function. No significant valvular dysfunction. There is suspicion of possible dissection flap on ascending aorta. 09/29/2024 Patient is sitting in the chair. Awake alert and oriented. Denied any complaints of chest pain or shortness of breath. Patient states that he feels better. No complaints of headache or dizziness. Heart rate is controlled. Laboratory data showed WBC 2.9 hemoglobin 13.2 and platelets 112 sodium 137 potassium 2.6 chloride 105 bicarb is 28 BUN 14 creatinine 0.74 and blood sugar 88. Vitamin B12 519 and TSH 0.868 Influenza A B RSV and COVID-19 PCR not detected. 09/30/2024 Patient is resting in the bed comfortably. Awake alert and oriented. Mentation at baseline. Remains in atrial fibrillation. Heart rate controlled with Toprol-XL 50 mg daily. Patient is also on amiodarone. Denied any complaints of chest pain or shortness of breath. Laboratory data showed WBC 2.45 hemoglobin 12.5 and platelets 109 sodium 137 potassium 3.6 chloride 109 bicarb is 20 BUN 11 creatinine 0.71 and blood sugar 115 and magnesium 1.5 which is being replaced. proBNP 4280. CTA thorax showed no evidence for acute thoracic aortic dissection. Advanced calcification atherosclerotic disease of the aorta. Penetrating atherosclerotic ulcer seen in the descending thoracic aorta measuring up to 7 mm in diameter with an additional suggestion of small ulcer suggesting cephalad. 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 Nonspecific mass/fluid collection seen extending from the scrotum is incompletely evaluated on this modality. Indeterminate left adrenal gland nodule measuring up to 1 cm. 10/01/2024 Sitting in the chair. Awake and alert. No complaints of chest pain or shortness of breath. Currently on room air. No other acute overnight issues. Remains in atrial fibrillation with controlled heart rate. Cardiac catheterization has been postponed to tomorrow. Laboratory data showed WBC 2.0 hemoglobin 11.9 and platelets 109 Sodium 137 potassium 3.8 chloride 113 bicarb is 18 BUN 10 and creatinine 0.72 and blood sugar 92, magnesium 1.8 and calcium 8.2 Patient is on metoprolol and amiodarone. Rate is controlled. Current medications reviewed. Objective - Vital Signs Vital signs: Vital Signs Temp 97.7 F 10/01/24 20:21 Pulse 86 10/01/24 20:21 Resp 16 10/01/24 20:21 BP 151/95 10/01/24 20:21 Pulse Ox 93 L 10/01/24 20:21 FiO2 Intake & Output 10/01/24 10/01/24 10/02/24 06:59 18:59 06:59 Intake Total 50.394 Output Total 300 200 Balance -249.606 -200 Weight 74 kg Intake: Intake, IV Titration 50.394 Amount Heparin Sod,Pork in 0.45% 50.394 NaCl 25,000 unit In 0.45 % NaCl 1 250ml.bag @ 12 UNITS/KG/HR 8.88 mls/hr IV .Q24H [facility] Rx#: [id number] Output: Urine 300 200 Other: Voiding Method Toilet Toilet Toilet Urinal Urinal Urinal # Voids 1 # Bowel Movements 1 - Exam PHYSICAL EXAMINATION: Patient is lying in the bed comfortably, no acute distress, awake alert and oriented.. HEENT: Normocephalic. Neck is supple. Pupils reactive. Nostrils clear. Oral cavity is moist. Neck reveals no JVD, carotid bruits, or thyromegaly. CHEST EXAMINATION: Trachea is central. Symmetrical expansion. Lung resendez clear to auscultation and percussion. CARDIAC: Normal S1, S2 with no gallops. No murmurs ABDOMEN: Soft. Bowel sounds normal. No organomegaly. No abdominal bruits. Extremities: reveal no edema. No clubbing or cyanosis Neurologically awake, alert, oriented x3 with well-coordinated movements. No focal deficits noted Skin: No rash or skin lesions. Psychiatric: Coperative. Nonsuicidal Musculoskeletal: No joint swelling or deformity. Normal range of motion. - Labs CBC & Chem 7: 10/02/24 06:40 10/02/24 06:40 Labs: Abnormal Lab Results - Last 24 Hours (Table) 10/01/24 10/01/24 10/01/24 Range/Units 02:31 06:29 06:29 WBC 2.09 L (4.50-10.00) 10*3/uL RBC 3.79 L (4.40-5.60) 10*6/uL Hgb 11.9 L (13.0-17.0) g/dL Hct 34.6 L (39.6-50.0) % Plt Count 109 L (140-440) 10*3/uL Neutrophils # 1.00 L (1.80-7.70) 10*3/uL Lymphocytes # 0.74 L (0.90-5.00) 10*3/uL Eosinophils # 0.03 L (0.04-0.35) 10*3/uL APTT 79.0 H (22.0-30.0) sec Chloride 113 H (98-107) mmol/L Carbon Dioxide 18 L (22-30) mmol/L Calcium 8.2 L (8.4-10.2) mg/dL 10/01/24 Range/Units 09:36 WBC (4.50-10.00) 10*3/uL RBC (4.40-5.60) 10*6/uL Hgb (13.0-17.0) g/dL Hct (39.6-50.0) % Plt Count (140-440) 10*3/uL Neutrophils # (1.80-7.70) 10*3/uL Lymphocytes # (0.90-5.00) 10*3/uL Eosinophils # (0.04-0.35) 10*3/uL APTT 62.1 H (22.0-30.0) sec Chloride (98-107) mmol/L Carbon Dioxide (22-30) mmol/L Calcium (8.4-10.2) mg/dL Assessment and Plan Assessment: Generalized weakness, fatigue and failure to thrive. Elevated troponin level possible non-ST elevated [place] Paroxysmal atrial fibrillation with RVR on anticoagulation with Eliquis. Rate controlled Suspicious for dissection flap on ascending aorta. Less likely for cardiology Hypertension uncontrolled on admission Hyperlipidemia BPH GERD History of CVA/TIA. No residual weakness GERD Prior history of smoking DVT prophylaxis. Patient is on full anticoagulation Plan: Patient will be continued on telemonitoring. Continue with aspirin and statins. Cardizem drip has been discontinued.. Patient was restarted on heparin drip. Cardiac catheterization has been rescheduled on Tuesday Eliquis is on hold. Patient was started back on home medications. 2D echocardiogram shows suspicious for dissection flap. CT surgery was consulted. No intervention recommended. Cardiology is on board. Continue to follow closely. Prognosis is guarded. Time with Patient: Greater than 30
--- NOTE | 2024-10-02 22:25 | P.PN ---
Subjective Progress Note Date: 10/02/24 Patient is a 54-year-old man with a past medical history of atrial fibrillation on anticoagulation with Eliquis, hypertension, hyperlipidemia, prostate disorder/bleed., Obstructive sleep apnea not wearing CPAP, history of CVA/TIA, ongoing hand prior history of smoking presents to ER with the complaints of not feeling well. Patient states that he is feeling very weak and not sleeping and not eating recently. Family called EMS as he was not taking his medications. Otherwise patient denied any complaints of chest pain or shortness of breath. No headache. No complaints of dizziness. No complaints of leg swelling. No nausea vomiting or diarrhea. EKG showed sinus rhythm with possible left atrial enlargement. Chest x-ray showed no acute cardiopulmonary process Laboratory data showed WBC 3.62, hemoglobin 13.2 and platelets 109. Lymphocytes 0.77, sodium 135 potassium 4.3 chloride 101 bicarb is 19 BUN 16 and creatinine 0.81 blood sugar 82 liver enzymes not elevated magnesium 1.8 troponin 0.166, 0.177 and 0.211 Urinalysis is negative for infection. 2D echocardiogram showed LVEF 55%, mild concentric LVH, no obvious regional wall motion abnormality. Normal LV size and systolic function. No significant valvular dysfunction. There is suspicion of possible dissection flap on ascending aorta. 09/29/2024 Patient is sitting in the chair. Awake alert and oriented. Denied any complaints of chest pain or shortness of breath. Patient states that he feels better. No complaints of headache or dizziness. Heart rate is controlled. Laboratory data showed WBC 2.9 hemoglobin 13.2 and platelets 112 sodium 137 potassium 2.6 chloride 105 bicarb is 28 BUN 14 creatinine 0.74 and blood sugar 88. Vitamin B12 519 and TSH 0.868 Influenza A B RSV and COVID-19 PCR not detected. 09/30/2024 Patient is resting in the bed comfortably. Awake alert and oriented. Mentation at baseline. Remains in atrial fibrillation. Heart rate controlled with Toprol-XL 50 mg daily. Patient is also on amiodarone. Denied any complaints of chest pain or shortness of breath. Laboratory data showed WBC 2.45 hemoglobin 12.5 and platelets 109 sodium 137 potassium 3.6 chloride 109 bicarb is 20 BUN 11 creatinine 0.71 and blood sugar 115 and magnesium 1.5 which is being replaced. proBNP 4280. CTA thorax showed no evidence for acute thoracic aortic dissection. Advanced calcification atherosclerotic disease of the aorta. Penetrating atherosclerotic ulcer seen in the descending thoracic aorta measuring up to 7 mm in diameter with an additional suggestion of small ulcer suggesting cephalad. 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 Nonspecific mass/fluid collection seen extending from the scrotum is incompletely evaluated on this modality. Indeterminate left adrenal gland nodule measuring up to 1 cm. 10/01/2024 Sitting in the chair. Awake and alert. No complaints of chest pain or shortness of breath. Currently on room air. No other acute overnight issues. Remains in atrial fibrillation with controlled heart rate. Cardiac catheterization has been postponed to tomorrow. Laboratory data showed WBC 2.0 hemoglobin 11.9 and platelets 109 Sodium 137 potassium 3.8 chloride 113 bicarb is 18 BUN 10 and creatinine 0.72 and blood sugar 92, magnesium 1.8 and calcium 8.2 Patient is on metoprolol and amiodarone. Rate is controlled. 10/02/2024 Patient is resting in the bed. Awake alert and oriented. Currently on room air. Status post cardiac catheterization today. Showed 60% stenosis involving circumflex artery. Medical management was recommended. Otherwise patient remains in atrial fibrillation but rate is controlled. Denies chest pain or shortness of breath. No headache or dizziness or lightheadedness. Continued on metoprolol and amiodarone. Eliquis to be restarted once cleared by cardiology. Anticipate discharge in the next 24 hours. Current medications reviewed. Objective - Vital Signs Vital signs: Vital Signs Temp 98.1 F 10/02/24 15:49 Pulse 76 10/02/24 15:49 Resp 16 10/02/24 15:49 BP 127/75 10/02/24 15:49 Pulse Ox 93 L 10/02/24 10:37 FiO2 Intake & Output 10/02/24 10/02/24 10/03/24 06:59 18:59 06:59 Intake Total 130.638 100 Output Total 300 200 Balance -169.362 -100 Weight 77.5 kg 77.5 kg Intake: IV 100 Intake, IV Titration 130.638 Amount Heparin Sod,Pork in 0.45% 130.638 NaCl 25,000 unit In 0.45 % NaCl 1 250ml.bag @ 12 UNITS/KG/HR 8.88 mls/hr IV .Q24H [facility] Rx#: [id number] Output: Urine 300 200 Other: Voiding Method Toilet Toilet Urinal Urinal # Voids 1 - Exam PHYSICAL EXAMINATION: Patient is lying in the bed comfortably, no acute distress, awake alert and zamzam ented.. HEENT: Normocephalic. Neck is supple. Pupils reactive. Nostrils clear. Oral cavity is moist. Neck reveals no JVD, carotid bruits, or thyromegaly. CHEST EXAMINATION: Trachea is central. Symmetrical expansion. Lung resendez clear to auscultation and percussion. CARDIAC: Normal S1, S2 with no gallops. No murmurs ABDOMEN: Soft. Bowel sounds normal. No organomegaly. No abdominal bruits. Extremities: reveal no edema. No clubbing or cyanosis Neurologically awake, alert, oriented x3 with well-coordinated movements. No focal deficits noted Skin: No rash or skin lesions. Psychiatric: Coperative. Nonsuicidal Musculoskeletal: No joint swelling or deformity. Normal range of motion. - Labs CBC & Chem 7: 10/02/24 06:40 10/02/24 06:40 Labs: Abnormal Lab Results - Last 24 Hours (Table) 10/02/24 10/02/24 10/02/24 Range/Units 06:40 06:40 06:40 WBC 2.79 L (4.50-10.00) 10*3/uL RBC 3.74 L (4.40-5.60) 10*6/uL Hgb 11.7 L (13.0-17.0) g/dL Hct 34.4 L (39.6-50.0) % Plt Count 108 L (140-440) 10*3/uL Neutrophils # 1.63 L (1.80-7.70) 10*3/uL Lymphocytes # 0.84 L (0.90-5.00) 10*3/uL Eosinophils # 0.01 L (0.04-0.35) 10*3/uL APTT 38.3 H (22.0-30.0) sec Chloride 112 H (98-107) mmol/L Carbon Dioxide 20 L (22-30) mmol/L Assessment and Plan Assessment: Generalized weakness, fatigue and failure to thrive. Elevated troponin level possible non-ST elevated [place]. Patient is status post cardiac catheterization showed 60% stenosis of circumflex artery. Medical management recommended. Paroxysmal atrial fibrillation with RVR on anticoagulation with Eliquis. Rate controlled Suspicious for dissection flap on ascending aorta. Less likely for cardiology Hypertension uncontrolled on admission Hyperlipidemia BPH GERD History of CVA/TIA. No residual weakness GERD Prior history of smoking DVT prophylaxis. Patient is on full anticoagulation Plan: Patient is status post cardiac catheterization today. Patient will be continued on telemonitoring. Continue with aspirin and statins. Rate controlled with metoprolol and also on amiodarone. Eliquis is on hold. To be restarted once cleared by cardiology. Patient was started back on home medications. 2D echocardiogram shows suspicious for dissection flap. CT surgery was consulted. No intervention recommended. Cardiology is on board. Continue to follow closely. Prognosis is guarded. Time with Patient: Greater than 30
[2024-10-03] MEDS: POTASSIUM CHLORIDE ER 20 MEQ TAB.ER PO ONE (04:13)
[2024-10-03 08:23] LABS: Basophils # (A) 0.01 10*3/uL (0.00-0.10); Basophils % (A) 0.4 %; Eosinophils # (A) 0.01 10*3/uL (0.04-0.35); Eosinophils % (A) 0.4 %; HCT 31.4 % (39.6-50.0); Immature Platelet Fraction 4.6 % (1.1-6.1); Lymphocytes # (A) 0.67 10*3/uL (0.90-5.00); Lymphocytes % (A) 24.2 %; MCH 31.5 pg (27.0-32.0); Mean Platelet Volume 11.6 fL (9.5-12.2); Monocytes # (A) 0.45 10*3/uL (0.20-1.00); Monocytes % (A) 16.2 %; Neutrophils # (A) 1.63 10*3/uL (1.80-7.70); Neutrophils % (A) 58.8 %; Platelet Count 106 10*3/uL (140-440); RBC 3.49 10*6/uL (4.40-5.60); RDW 16.4 % (11.5-14.5); WBC 2.77 10*3/uL (4.50-10.00)
[2024-10-03 08:37] VITALS: RESP 16
[2024-10-03 08:39] LABS: African American GFR (CKD) >90 (>60 ml/min/1.73 sqM); Anion Gap 7 mmol/L; Blood Urea Nitrogen 8 mg/dL (9-20); Calcium 8.5 mg/dL (8.4-10.2); Carbon Dioxide 18 mmol/L (22-30); Chloride 109 mmol/L (98-107); Glucose 86 mg/dL (74-99); Non-African American GFR(CKD) 88 (>60 ml/min/1.73 sqM); Potassium 3.6 mmol/L (3.5-5.1); Sodium 134 mmol/L (137-145)
--- NOTE | 2024-10-03 11:28 | P.PN ---
Subjective HISTORY OF PRESENT ILLNESS: This is an 84-year-old male patient of Dr. Dayo Chapman with past medical history of paroxysmal atrial fibrillation previously on Coumadin, hypertension, dyslipidemia. We have been asked to evaluate the patient for NSTEMI. Patient was brought into the hospital with concern for decreased appetite for a couple of days, weakness, not sleeping well and not taking his medications. There is concern for failure to thrive. Patient denies chest pain or chest pressure. He is a very poor historian appears very weak. Blood pressure 140/91, heart rate 85, pulse ox 95% on room air. Patient has been started on a heparin drip and Nitropaste. Regarding anticoagulation, patient was previously on Coumadin during his last office visit on 04/30/2024. It appears he was recently started on a Xarelto starter pack. Patient is seen today in the emergency center waiting for a bed on the cardiac stepdown unit. -EKG:sinus with t wave inversions present on previous EKGs. -Chest x-ray:no acute process. -Laboratory studies: Troponin 0.166, 0.177, 0.211 -Home cardiac medications: Cardizem 120 mg daily, Xarelto starter pack, rosu vastatin. -Echocardiogram performed in the office in 2019 revealed normal LV size and function with mild concentric hypertrophy. Mild mitral regurgitation. Mild tricuspid regurgitation. Mild pulmonic regurgitation. -Dobutamine Cardiolite stress test performed 11/10/2021 with inconclusive EKG portion of the test due to baseline EKG abnormalities. Dobutamine induced atrial fibrillation. Normal myocardial perfusion and function. 10/01/2024 Patient examined this morning at bedside. Patient currently denies chest pain or pressure. He denies shortness of breath. Vital signs are stable. Telemetry reveals atrial fibrillation with controlled ventricular rate. Patient was scheduled for cardiac catheterization today. However due to scheduling difficulties, this will be rescheduled for tomorrow 10/02/2024 Patient seen and examined resting comfortably in bed. He underwent cardiac catheterization this morning with Dr. Santo via the right radial artery. He has 60% disease of the circumflex artery, medical management recommended. Blood pressure 148/87 heart rate 82 afebrile maintaining oxygen saturation on room air. 10/03/2024 Patient examined this morning at bedside. Patient without complaints of chest pain or shortness of breath. Vital signs are stable. PHYSICAL EXAM: VITAL SIGNS: Reviewed. GENERAL: Well-developed in no acute distress. NECK: Supple. No JVD or thyromegaly LUNGS: Respirations even and unlabored. Lungs essentially clear to auscultation bilaterally. HEART: Irregular rate and rhythm. S1 and S2 heard. EXTREMITIES: Normal range of motion. No clubbing or cyanosis. Peripheral pulses intact. No lower extremity edema ASSESSMENT: Generalized weakness and fatigue Non-STEMI, status post cardiac catheterization revealing 60% circumflex stenosis Atherosclerosis and LAD mural thrombus and infrarenal aorta measuring 3.8 cm Coronary artery calcifications Paroxysmal atrial fibrillation Hypertension Dyslipidemia PLAN: Continue amiodarone, aspirin, Lipitor, Imdur, metoprolol Resume Xarelto. Decrease dose to 15 mg with dinner per Dr[address] Cabezas secondary to advanced age Patient is stable for discharge home today from a cardiac standpoint Nurse practitioner note has been reviewed by physician. Signing provider agrees with the documented findings, assessment, and plan of care documented by [employer] as a scribe. Objective - Vital Signs Vital signs: Vital Signs Temp 97.8 F 10/03/24 08:00 Pulse 93 10/03/24 08:00 Resp 16 10/03/24 08:00 BP 158/93 10/03/24 08:00 Pulse Ox 98 10/03/24 08:00 FiO2 Intake & Output 10/02/24 10/03/24 10/03/24 18:59 06:59 18:59 Intake Total 100 540 240 Output Total 200 300 Balance -100 240 240 Weight 77.5 kg 77 kg Intake: IV 100 Oral 540 240 Output: Urine 200 300 Other: Voiding Method Toilet Toilet Urinal Urinal - Labs CBC & Chem 7: 10/03/24 07:31 10/03/24 07:31 Labs: Abnormal Lab Results - Last 24 Hours (Table) 10/03/24 10/03/24 Range/Units 07:31 07:31 WBC 2.77 L (4.50-10.00) 10*3/uL RBC 3.49 L (4.40-5.60) 10*6/uL Hgb 11.0 L (13.0-17.0) g/dL Hct 31.4 L (39.6-50.0) % Plt Count 106 L (140-440) 10*3/uL Neutrophils # 1.63 L (1.80-7.70) 10*3/uL Lymphocytes # 0.67 L (0.90-5.00) 10*3/uL Eosinophils # 0.01 L (0.04-0.35) 10*3/uL Sodium 134 L (137-145) mmol/L Chloride 109 H (98-107) mmol/L Carbon Dioxide 18 L (22-30) mmol/L BUN 8 L (9-20) mg/dL
--- NOTE | 2024-10-03 12:33 | P.DS ---
Providers Date of admission: 09/27/24 20:31 Attending physician: Harmeet Cooper Consults: 09/27/24 20:21 Consult Physician Urgent Consulting Provider: [facility] Consult Reason/Comments: NSTEMI Do you want consulting provider notified?: Yes 09/28/24 08:36 Consult Physician Routine Consulting Provider: Stevan Bradford Consult Reason/Comments: aortic dissection Do you want consulting provider notified?: Yes Primary care physician: [facility] Course: 84-year-old male came in with generalized weakness, found to have elevated troponins because of which patient was believed to have non-ST elevation [place]. Cardiology evaluate the patient patient underwent cardiac catheterization showed 60% occlusion of circumflex which was not stented and patient will need medical management. Patient also has atherosclerosis in the LAD mural thrombosis and infrarenal aorta measuring 3.8 cm. No further intervention for these things. Patient is blood pressure is slightly low although patient does not have any lightheadedness patient was started on Imdur, metoprolol here may be contributing to his lightheadedness. Patient was on Cardizem as an outpatient which was discontinued patient was started on Xarelto 15 mg daily. Patient probably can be discharged today. Patient will discharge to subacute rehabilitation. REVIEW OF SYSTEMS: All other systems are negative except those mentioned in the HPI PHYSICAL EXAMINATION: GENERAL: The patient is alert and oriented x3, not in any acute distress. Well developed, well nourished. HEENT: Pupils are round and equally reacting to light. EOMI. No scleral icterus. No conjunctival pallor. Normocephalic, atraumatic. No pharyngeal erythema. No thyromegaly. CARDIOVASCULAR: S1 and S2 present. No murmurs, rubs, or gallops. PULMONARY: Chest is clear to auscultation, no wheezing or crackles. ABDOMEN: Soft, nontender, nondistended, normoactive bowel sounds. No palpable organomegaly. MUSCULOSKELETAL: No joint swelling or deformity. EXTREMITIES: No cyanosis, clubbing, or pedal edema. NEUROLOGICAL: Gross neurological examination did not reveal any focal deficits. SKIN: No rashes. Assessment and plan Generalized weakness, fatigue and failure to thrive. Being discharged to subacute rehab Elevated troponin level possible non-ST elevated [place]. Patient is status post cardiac catheterization showed 60% stenosis of circumflex artery. Medical management recommended. Paroxysmal atrial fibrillation with RVR on anticoagulation with Eliquis. Rate controlled Suspicious for dissection flap on ascending aorta. Less likely for cardiology Hypertension uncontrolled on admission Hyperlipidemia BPH GERD History of CVA/TIA. No residual weakness GERD Plan - Discharge Summary Discharge Rx Participant: Yes New Discharge Prescriptions: New Aspirin 81 mg PO DAILY tab Atorvastatin [Lipitor] 40 mg PO HS tab Nitroglycerin Sl Tabs [Nitrostat] 0.4 mg SUBLINGUAL Q5M PRN tab PRN Reason: Chest Pain Rivaroxaban [Xarelto] 15 mg PO W/SUPPER tab Amiodarone [Cordarone] 200 mg PO TID #0 tab Isosorbide Mononitrate ER [Imdur] 30 mg PO DAILY tab Metoprolol Succinate (ER) [Toprol XL] 25 mg PO DAILY tab Continue OXcarbazepine [Trileptal] 300 mg PO DAILY Alfuzosin HCl [Uroxatral ER] 10 mg PO BID Ergocalciferol [Vitamin D2 (DRISDOL)] 50,000 unit PO FR Rosuvastatin [Crestor] 20 mg PO DAILY dilTIAZem HCL [dilTIAZem HCL 24Hr ER (Xr)] 120 mg PO DAILY Gabapentin 300 mg PO DAILY #10 tab Discontinued Rivaroxaban [Xarelto Starter Pack] See Taper PO DIRECTED Discharge Medication List Alfuzosin HCl [Uroxatral ER] 10 mg PO BID 01/13/17 [History] OXcarbazepine [Trileptal] 300 mg PO DAILY 01/13/17 [History] Ergocalciferol [Vitamin D2 (DRISDOL)] 50,000 unit PO FR 10/29/19 [History] Rosuvastatin [Crestor] 20 mg PO DAILY 02/06/24 [History] dilTIAZem HCL [dilTIAZem HCL 24Hr ER (Xr)] 120 mg PO DAILY 09/27/24 [History] Amiodarone [Cordarone] 200 mg PO TID #0 tab 10/03/24 [Rx] Aspirin 81 mg PO DAILY tab 10/03/24 [Rx] Atorvastatin [Lipitor] 40 mg PO HS tab 10/03/24 [Rx] Gabapentin 300 mg PO DAILY #10 tab 10/03/24 [Rx] Isosorbide Mononitrate ER [Imdur] 30 mg PO DAILY tab 10/03/24 [Rx] Metoprolol Succinate (ER) [Toprol XL] 25 mg PO DAILY tab 10/03/24 [Rx] Nitroglycerin Sl Tabs [Nitrostat] 0.4 mg SUBLINGUAL Q5M PRN tab 10/03/24 [Rx] Rivaroxaban [Xarelto] 15 mg PO W/SUPPER tab 10/03/24 [Rx] Follow up Appointment(s)/Referral(s): Trevor Lawler MD [STAFF PHYSICIAN] - 1 Week Amy Dawson DO [Primary Care Provider] - 1-2 Days Patient Instructions/Handouts: *Surgery [facility] - After Heart Catheterization - [employer] Instructions Discharge Disposition: HOME SELF-CARE
[2024-10-03 16:37] VITALS: BP 124/80; PULSE 82; TEMP 97.6
[2024-10-03] MEDS: RIVAROXABAN 15 MG TAB PO SCH (16:50)
== END 2024-10-03 17:42 | DRG 281 ==
LOC: EC 16:40 → 3SCARD 20:31
PROVIDERS: ADMIT Hospitalist; ATTEND Hospitalist
PROC: 4A023N7 Measurement of Cardiac Sampling and Pressure, Left Heart, Percutaneous Approach (ICD-10-PCS; principal; 2024-10-02 07:30)
PROC: B2111ZZ Fluoroscopy of Multiple Coronary Arteries using Low Osmolar Contrast (ICD-10-PCS; principal; 2024-10-02 07:30)
DX: I21.4 Non-ST elevation (NSTEMI) myocardial infarction (principal); I74.09 Other arterial embolism and thrombosis of abdominal aorta; E27.8 Other specified disorders of adrenal gland; R62.7 Adult failure to thrive; I48.0 Paroxysmal atrial fibrillation; G50.0 Trigeminal neuralgia; I10 Essential (primary) hypertension; J45.909 Unspecified asthma, uncomplicated; E78.5 Hyperlipidemia, unspecified; I71.43 Infrarenal abdominal aortic aneurysm, without rupture; E83.42 Hypomagnesemia; Z68.27 Body mass index [BMI] 27.0-27.9, adult; I25.10 Atherosclerotic heart disease of native coronary artery without angina pectoris; I25.84 Coronary atherosclerosis due to calcified coronary lesion; N40.0 Benign prostatic hyperplasia without lower urinary tract symptoms; K21.9 Gastro-esophageal reflux disease without esophagitis; I70.0 Atherosclerosis of aorta; G47.33 Obstructive sleep apnea (adult) (pediatric); G62.9 Polyneuropathy, unspecified; E87.6 Hypokalemia; Z91.148 Patient's other noncompliance with medication regimen for other reason; Z79.01 Long term (current) use of anticoagulants; Z79.899 Other long term (current) drug therapy; Z86.73 Personal history of transient ischemic attack (TIA), and cerebral infarction without residual deficits; Z87.891 Personal history of nicotine dependence; Z82.49 Family history of ischemic heart disease and other diseases of the circulatory system; Z88.2 Allergy status to sulfonamides
CPT/HCPCS: 36415; 71046; 71275; 74174; 80048; 80053; 80061; 81003; 82607; 82747; 83036; 83605; 83735; 83880; 84132; 84443; 84484; 85025; 85610; 85730; 87636; 93005; 93306; 93458; 96361; 96365; 96366; 96367; 99291

== ENCOUNTER 2024-10-07 18:52 | Emergency (ER) | payer MEDICARE ==
[2024-10-07 19:08] VITALS: TEMP 95.9
--- NOTE | 2024-10-07 19:56 | XR ---
EXAMINATION TYPE: XR chest 1V DATE OF EXAM: 10/07/2024 7:37 PM COMPARISON: Chest radiographs from 09/27/2024 CLINICAL INDICATION: Male, 84 years old with history of fall, pain; [facility] TECHNIQUE: XR chest 1V Frontal view of the chest. FINDINGS: Lungs/Pleura: There is no evidence of pleural effusion, focal consolidation, or pneumothorax. Pulmonary vascularity: Pulmonary vascular congestion. Heart/mediastinum: Cardiomediastinal silhouette is enlarged. Atherosclerotic calcifications are seen in the aorta. Musculoskeletal: No acute osseous pathology. IMPRESSION: Cardiomegaly and mild pulmonary vascular congestion. Correlate with BNP for congestive heart failure. [facility], , 10/07/2024 7:54 PM
--- NOTE | 2024-10-07 19:58 | XR ---
EXAMINATION TYPE: XR pelvis AP view DATE OF EXAM: 10/07/2024 7:37 PM COMPARISON: CT CLINICAL INDICATION: Male, 84 years old with history of fall, pain; pain H TECHNIQUE: XR pelvis AP view, examined in a single projection. FINDINGS: There is no evidence of fracture or dislocation. There is no soft tissue abnormality. No a bnormal calcifications are present. The spine appears intact. The hips appear intact. Osteophyte form ation of the superior acetabulum bilaterally with mild joint space narrowing. IMPRESSION: 1. No evidence of fracture. 2. Moderate degeneration changes of the spine. [facility], , 10/07/2024 7:56 PM
[2024-10-07 20:01] LABS: Basophils # (A) 0.01 10*3/uL (0.00-0.10); Basophils % (A) 0.3 %; Eosinophils # (A) 0.01 10*3/uL (0.04-0.35); Eosinophils % (A) 0.3 %; HCT 31.1 % (39.6-50.0); HGB 10.8 g/dL (13.0-17.0); Immature Platelet Fraction 3.5 % (1.1-6.1); Lymphocytes # (A) 0.48 10*3/uL (0.90-5.00); Lymphocytes % (A) 13.2 %; MCH 31.5 pg (27.0-32.0); MCHC 34.7 g/dL (32.0-37.0); MCV 90.7 fL (80.0-97.0); Monocytes # (A) 0.51 10*3/uL (0.20-1.00); Neutrophils # (A) 2.62 10*3/uL (1.80-7.70); Neutrophils % (A) 71.7 %; Platelet Count 116 10*3/uL (140-440); RBC 3.43 10*6/uL (4.40-5.60); RDW 16.5 % (11.5-14.5); WBC 3.65 10*3/uL (4.50-10.00)
[2024-10-07] MEDS: LIDOCAINE 4% PATCH TOPICAL STA (20:10)
[2024-10-07] MEDS: ACETAMINOPHEN TAB 500 MG TAB PO STA (20:11)
[2024-10-07 20:13] LABS: INR 1.6 (<1.2); Partial Thromboplastin Time 37.8 sec (22.0-30.0); Prothrombin Time 16.9 sec (10.0-12.5)
[2024-10-07 20:22] LABS: ALT 20 U/L (4-49); AST 29 U/L (17-59); African American GFR (CKD) 88 (>60 ml/min/1.73 sqM); Albumin 2.8 g/dL (3.5-5.0); Alkaline Phosphatase 83 U/L (38-126); Anion Gap 5 mmol/L; Blood Urea Nitrogen 11 mg/dL (9-20); Calcium 8.6 mg/dL (8.4-10.2); Carbon Dioxide 23 mmol/L (22-30); Chloride 106 mmol/L (98-107); Glucose 105 mg/dL (74-99); Magnesium 1.5 mg/dL (1.6-2.3); Non-African American GFR(CKD) 76 (>60 ml/min/1.73 sqM); Potassium 3.5 mmol/L (3.5-5.1); Sodium 134 mmol/L (137-145); Total Bilirubin 1.1 mg/dL (0.2-1.3); Total Protein 5.5 g/dL (6.3-8.2)
--- NOTE | 2024-10-07 20:23 | CT ---
EXAMINATION TYPE: CT brain cspine wo con DATE OF EXAM: 10/07/2024 7:45 PM COMPARISON: 01/14/2020 CLINICAL INDICATION: Male, 84 years old with history of fall, pain; Fall hit head, no LOC, left middl e back pain, pain TECHNIQUE: Brain: Multiple axial CT images of the brain were obtained without IV contrast. Cspine: Axial CT images from the skull base to the inferior aspect of T2 we obtained without intraven ous contrast. Coronal and sagittal reformatted images were also reviewed. . CT DLP: 2562.2 mGycm, Automated exposure control for dose reduction was used. FINDINGS: Brain: Extra-axial spaces: No abnormal extra-axial fluid collections. Ventricular system: Dilatation in proportion to cerebral atrophy. Cerebral parenchyma: Loss of jurado-white matter differentiation within the right parietal region. New from 01/22/2020. Right basal ganglia injury not significantly changed. Cerebral atrophy. No acute intr aparenchymal hemorrhage or mass effect. The jurado-white junction is well differentiated. Scattered hy poattenuating areas are seen within the white matter. Cerebellum: Remote injury lateral cerebellum. Mass effect: No evidence of midline shift. Intracranial vasculature: unremarkable Soft tissues: Normal. Calvarium/osseous structures: No depressed skull fracture. Paranasal sinuses and mastoid air cells: Clear. Visualized orbits: Bilateral aphakia Cervical spine: Fracture: None. Osseous structures: Multilevel degenerative disc disease changes with endplate spurring and disc oste ophyte complex's. Ankylosis of the facets of C2-C3 on the left. Vertebral alignment: Within normal limits. Spinal canal/Neural Foramina: No evidence of significant spinal canal narrowing. No evidence for sign ificant neural foraminal stenosis. Neck soft tissues: Prevertebral soft tissues are within normal limits. Other: The airway is patent. The lung apices are clear. IMPRESSION: 1. No acute intracranial process. 2. Encephalomalacia of right parietal region. New from 01/22/2020 correlate for history of prior stro kes. Remote right basal ganglia injury not significantly changed. Remote right lateral cerebellar inj ury also present. 3. No evidence of cervical spine fracture. 4. Mild to moderate multilevel degenerative disc disease. [facility], , 10/07/2024 8:21 PM
[2024-10-07 20:35] LABS: Influenza A Not Detected (Not Detectd); Influenza B Not Detected (Not Detectd); RSV Not Detected (Not Detectd)
--- NOTE | 2024-10-07 20:40 | CT ---
EXAMINATION TYPE: CT thor lumbar spine wo con DATE OF EXAM: 10/07/2024 8:31 PM COMPARISON: CT CLINICAL INDICATION: Male, 84 years old with history of fall, pain; Fall hit head, no LOC, left middl e back pain TECHNIQUE: Axial images of the thoracic and lumbar spine were obtained without contrast. Coronal and sagittal reformats were performed. 3-D reformats of the bones were created on a separate workstation and submitted for review. CT Contrast: Contrast used: mL of , none. Oral contrast used: none. CT DLP: 1219 mGycm, Automated exposure control for dose reduction was used. FINDINGS: Thoracic: The thoracic vertebral bodies have preserved heights and alignment. Intervertebral discs and osseou s structures have normal appearance. I do not see any evidence of extradural defects nor significant spinal canal narrowing at any thoraci c vertebral body level. Lumbar: Alignment: There are 5 lumbar type vertebral bodies within normal alignment. Bone: No evidence of fracture is identified. Multilevel degeneration with osteophyte formation and f acet joint arthropathy thickness phenomenon. Compression deformity at T7 appears chronic with 50% hei ght loss anteriorly. Discs: T12-L1: Facet joint arthropathy, osteophytes and disc bulging result in no significant spinal canal s tenosis and mild bilateral neural foraminal stenosis. L1-L2: Facet joint arthropathy, osteophytes and disc bulging result in no significant spinal canal st enosis and mild bilateral neural foraminal stenosis. L2-L3: Facet joint arthropathy, osteophytes and disc bulging result in no significant spinal canal st enosis and mild bilateral neural foraminal stenosis. L3-L4: Facet joint arthropathy, osteophytes and disc bulging result in no significant spinal canal st enosis and mild bilateral neural foraminal stenosis. L4-L5: Facet joint arthropathy, osteophytes and disc bulging result in no significant spinal canal s tenosis and mild bilateral neural foraminal stenosis. L5-S1: Facet joint arthropathy, osteophytes and disc bulging result in no significant spinal canal st enosis and mild bilateral neural foraminal stenosis. Other: Infrarenal abdominal aortic aneurysm up to 3.9 cm. Nonobstructing bilateral renal calculi eulalia uring up to 3 mm on the right hand 4 mm on the left. Scattered colonic diverticula. The gallbladder s urgically absent. Small hiatal hernia. Right apical 14 mm groundglass nodule. Scattered paraseptal an d centrilobular emphysema changes. Collections trace bilateral pleural effusions and left. Moderate t o severe coronary artery atherosclerosis. Mild aortic valve calcifications. IMPRESSION: 1. No evidence of acute fracture of the lumbar spine. 2. No significant spinal canal or neural foraminal stenosis is identified. 3. Chronic appearing T7 vertebral body compression fracture with 50% height loss anteriorly. 4. Moderate degeneration changes spine. 5. No evidence for significant spinal canal or neural foraminal stenosis. 6. Infrarenal abdominal aortic aneurysm dilation up to 2.8 cm. 7. Trace bilateral pleural effusions. 8. Nonobstructing bilateral renal calculi. 9. Colonic diverticulosis. 10. Mild emphysema. 11. Small hiatal hernia. [facility], , 10/07/2024 8:37 PM
--- NOTE | 2024-10-07 21:03 | ED ---
General Adult HPI <Herbert Jaime - Last Filed: 10/07/24 23:56> - General Source: patient, EMS, RN notes reviewed, old records reviewed Mode of arrival: EMS Limitations: no limitations <Miguel Angel Hayes - Last Filed: 10/09/24 07:30> - General Chief complaint: Fall Stated complaint: Back pain, fall Time Seen by Provider: 10/07/24 19:00 - History of Present Illness Initial comments: Patient is a 84-year-old male who presents emergency department complaining of a fall. Has a history of A-fib, asthma, CVA, hypertension, hyperlipidemia. He has been at his nursing facility for the last 3 days for rehab for weakness. Apparently fell at approximately 1600 today. Landed on his back. Hit his head on the door. Did not experience loss conscious. Is on Xarelto. Did not tell any staff members that he fell. He told them shortly prior to arrival at 7 PM. He is endorsing lower back pain. Typically has chronic upper back pain. Denies any other obvious injuries. Presents for further evaluation at this time. (Miguel Angel Hayes) - Related Data Home Medications Medication Instructions Recorded Confirmed Alfuzosin HCl [Uroxatral ER] 10 mg PO BID 01/13/17 10/08/24 OXcarbazepine [Trileptal] 300 mg PO DAILY 01/13/17 10/08/24 Acetaminophen [Tylenol] 325 mg PO Q6H PRN 10/08/24 10/08/24 Atorvastatin [Lipitor] 40 mg PO DAILY 10/08/24 10/08/24 Ergocalciferol [Vitamin D2 (1250 1,250 mcg PO FR 10/08/24 10/08/24 Mcg = 23785 Iu)] Gabapentin 300 mg PO DAILY 10/08/24 10/08/24 Lidocaine 5% Patch [Lidoderm] 1 patch TRANSDERM Q24H PRN 10/08/24 10/08/24 Nitroglycerin Sl Tabs [Nitrostat] 0.4 mg SL Q5M PRN 10/08/24 10/08/24 Rivaroxaban [Xarelto] 15 mg PO HS 10/08/24 10/08/24 dilTIAZem HCL 120 mg PO DAILY 10/08/24 10/08/24 Previous Rx's Medication Instructions Recorded Amiodarone [Cordarone] 200 mg PO TID #0 tab 10/03/24 Aspirin 81 mg PO DAILY tab 10/03/24 Isosorbide Mononitrate ER [Imdur] 30 mg PO DAILY tab 10/03/24 Metoprolol Succinate (ER) [Toprol 25 mg PO DAILY tab 10/03/24 XL] Allergies Allergy/AdvReac Type Severity Reaction Status Date / Time Sulfa (Sulfonamide Allergy Dyspnea Verified 10/08/24 17:21 Antibiotics) Review of Systems ROS Other: All systems not noted in ROS Statement are negative. <Herbert Jaime - Last Filed: 10/07/24 23:56> ROS Other: All systems not noted in ROS Statement are negative. <Miguel Angel Hayes - Last Filed: 10/09/24 07:30> ROS Statement: Those systems with pertinent positive or pertinent negative responses have been documented in the HPI. Review of Systems: CONST: Denies fever EYES: Denies blurry vision ENT: Denies nasal congestion C/V: Denies Chest pain RESP: Denies shortness of breath GI: Denies abdominal pain : Denies dysuria SKIN: Denies rash. 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 BPH. has cpap not wearing right now. History of Any Multi-Drug Resistant Organisms: None Reported Past Surgical History: Hernia Repair Additional Past Surgical History / Comment(s): BILATERAL INGUINAL. cyst removed left testicle, juice cataracts, laser rt eye, pain clinic Past Anesthesia/Blood Transfusion Reactions: No Reported Reaction Past Psychological History: No Psychological Hx Reported Smoking Status: Former smoker Past Alcohol Use History: Occasional Past Drug Use History: None Reported - Past Family History Mother Family Medical History: No Reported History Father Family Medical History: Myocardial Infarction (OR) <Miguel Angel Hayes - Last Filed: 10/09/24 07:30> General Exam Limitations: no limitations <Miguel Angel Hayes - Last Filed: 10/09/24 07:30> - General Exam Comments Initial Comments: General: Appears in mild distress secondary to back pain HEAD: Normal with no signs of head trauma. Negative Webb sign. Negative raccoon eyes EYES: PERRLA, EOMI, conjunctiva normal, no discharge. Pupils are 3 mm and equal bilaterally. ENT: Hearing grossly intact, normal oropharynx. RESPIRATORY: Clear breath sounds bilaterally. No wheezes, rales, or rhonchi. C/V: Regular rate and rhythm. S1 and S2 auscultated, lower extremity pitting edema, peripheral pulses 2+ and intact throughout ABD: Abd is soft, nontender, nondistended EXT: Diffuse lower back pain over midline lumbar and thoracic spine as well as paraspinal. No obvious deformities of the spine. Cervical spine nontender to palpation. Pelvis is stable. No tenderness to palpation over the extremities. No obvious deformities of the extremities. SKIN: No rashes or lesions observed on exposed skin. NEURO: Alert and oriented x 4. Cranial nerves II-XII intact. No focal sensory or strength deficits. GCS of 15. (Miguel Angel Hayes) Course Vital Signs 10/07/24 10/07/24 10/08/24 19:05 20:35 00:13 Temperature 95.9 F L Pulse Rate 63 59 L 66 Respiratory 14 18 18 Rate Blood Pressure 115/67 122/72 142/80 O2 Sat by Pulse 94 L 96 96 Oximetry Medical Decision Making - Lab Data Result diagrams: 10/07/24 19:53 10/07/24 19:53 <Herbert Jaime - Last Filed: 10/07/24 23:56> - Lab Data Result diagrams: 10/07/24 19:53 10/07/24 19:53 - EKG Data -: EKG Interpreted by Ar <Miguel Angel Hayes - Last Filed: 10/09/24 07:30> - Medical Decision Making Was pt. sent in by a medical professional or institution (, PA, CAUSTIC CRESYLATE SHIFT SUPERINTENDENT, urgent c are, hospital, or longterm...) When possible be specific @ -No Did you speak to anyone other than the patient for history (EMS, parent, family, police, friend...)? What history was obtained from this source @ -No Did you review nursing and triage notes (agree or disagree)? Why? @ -I reviewed and agree with nursing and triage notes Were old charts reviewed (outside hosp., previous admission, EMS record, old EKG, old radiological studies, urgent care reports/EKG's, longterm records)? 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 This CT was from September 29, 2024. Differential Diagnosis (chest pain, altered mental status, abdominal pain women, abdominal pain men, vaginal bleeding, weakness, fever, dyspnea, syncope, headache, dizziness, GI bleed, back pain, seizure, CVA, palpatations, mental health, musculoskeletal)? @ -Differential Musculoskeletal Muscular strain, contusion, ligament sprain, fracture, arthritis, septic arthritis, bursitis, cellulitis, muscle spasm, nerve compression, DVT, arterial occlusion, herpes zoster, electrolyte abnormality, tumor.... This is not meant to be in all inclusive list EKG interpreted by me (3pts min.). @ -As above X-rays interpreted by me (1pt min.). @ -Chest x-ray negative for any obvious acute cardiopulmonary process. Pelvis x-ray negative for any obvious acute pelvic injury or process. CT interpreted by me (1pt min.). @ -CT brain, T-spine, C-spine, L-spine negative for any obvious acute traumatic injury or process. Chronic degeneration present. Chronic intracranial findings of likely remote infarcts. Chronic T7 compression fracture U/S interpreted by me (1pt. min.). @ -None done What testing was considered but not performed or refused? (CT, X-rays, U/S, labs)? Why? @ -None What meds were considered but not given or refused? Why? @ -None Did you discuss the management of the patient with other professionals (professionals i.e. , PA, CAUSTIC CRESYLATE SHIFT SUPERINTENDENT, lab, RT, psych nurse, social work manager, range management specialist, teacher, loss prevention officer, rn case manager)? Give summary @ -No Was smoking cessation discussed for >3mins.? @ -No Was critical care preformed (if so, how long)? @ -No Were there social determinants of health that impacted care today? How? (Homelessness, low income, unemployed, alcoholism, drug addiction, transportation, low edu. Level, literacy, decrease access to med. care, shelter, rehab)? @ -No Was there de-escalation of care discussed even if they declined (Discuss DNR or withdrawal of care, Hospice)? DNR status @ -No What co-morbidities impacted this encounter? (DM, HTN, Smoking, COPD, CAD, Cancer, CVA, ARF, Chemo, Hep., AIDS, mental health diagnosis, sleep apnea, morbid obesity)? @ -History of AAA. History of being on blood thinners. Was patient admitted / discharged? Hospital course, mention meds given and route, prescriptions, significant lab abnormalities, going to OR and other pertinent info. @ -Based on patient's presentation physical exam, patient was made a code coag. CT brain, spine will be obtained. Chest and pelvis x-ray will be obtained. Vital signs within acceptable limits. Patient will be administered Tylenol as well as lidocaine patch. Patient was in agreement this plan. EKG shows no signs of acute ischemia. Laboratory studies remarkable for chronic anemia. Mild hypomagnesemia was replenished. Viral swabs negative. Imaging returned negative for any obvious acute traumatic injury. At this time, it is the end of my shift. I did add on a CT angiogram to evaluate the aorta as he does have a AAA with mural thrombus. With him having worsening back pain over like to evaluate make sure that there is no acute change. Patient was in agreement this plan. Urine is still pending at this time as well. Patient signed out to oncoming emergency department physician Dr. Jaime at 21:00. Undiagnosed new problem with uncertain prognosis? @ -No Drug Therapy requiring intensive monitoring for toxicity (Heparin, Nitro, Insulin, Cardizem)? @ -No Were any procedures done? @ -No After my shift ending, CTA eventually did return unremarkable for any obvious acute aortic process. Chronic stable findings seen including infrarenal AAA was seen on prior CTA recently. No acute aortic catastrophe.. This is all per radiology. Patient was eventually discharged home by Dr. Jaime. (Miguel Angel Hayes) - Lab Data Lab Results 10/07/24 10/07/24 10/07/24 Range/Units 19:53 19:53 19:53 WBC 3.65 L (4.50-10.00) 10*3/uL RBC 3.43 L (4.40-5.60) 10*6/uL Hgb 10.8 L (13.0-17.0) g/dL Hct 31.1 L (39.6-50.0) % MCV 90.7 (80.0-97.0) fL MCH 31.5 (27.0-32.0) pg MCHC 34.7 (32.0-37.0) g/dL Plt Count 116 L (140-440) 10*3/uL MPV 11.0 (9.5-12.2) fL Immature Gran % (Auto) 0.5 % Neutrophils % 71.7 % Lymphocytes % 13.2 % Monocytes % 14.0 % Eosinophils % 0.3 % Basophils % 0.3 % Immature Gran # 0.02 (0.00-0.04) 10*3/uL Neutrophils # 2.62 (1.80-7.70) 10*3/uL Lymphocytes # 0.48 L (0.90-5.00) 10*3/uL Monocytes # 0.51 (0.20-1.00) 10*3/uL Eosinophils # 0.01 L (0.04-0.35) 10*3/uL Basophils # 0.01 (0.00-0.10) 10*3/uL Immature Plt Fraction 3.5 (1.1-6.1) % PT 16.9 H (10.0-12.5) sec INR 1.6 H (<1.2) APTT 37.8 H (22.0-30.0) sec Sodium 134 L (137-145) mmol/L Potassium 3.5 (3.5-5.1) mmol/L Chloride 106 (98-107) mmol/L Carbon Dioxide 23 (22-30) mmol/L Anion Gap 5 mmol/L BUN 11 (9-20) mg/dL Creatinine 0.93 (0.66-1.25) mg/dL Est GFR (CKD-EPI)AfAm 88 (>60 ml/min/1.73 sqM) Est GFR (CKD-EPI)NonAf 76 (>60 ml/min/1.73 sqM) Glucose 105 H (74-99) mg/dL Plasma Lactic Acid Devan (0.7-2.0) mmol/L Calcium 8.6 (8.4-10.2) mg/dL Magnesium 1.5 L (1.6-2.3) mg/dL Total Bilirubin 1.1 (0.2-1.3) mg/dL AST 29 (17-59) U/L ALT 20 (4-49) U/L Alkaline Phosphatase 83 (38-126) U/L Total Protein 5.5 L (6.3-8.2) g/dL Albumin 2.8 L (3.5-5.0) g/dL Urine Color Urine Appearance (Clear) Urine pH (5.0-8.0) Ur Specific [place] (1.001-1.035) Urine Protein (Negative) Urine Glucose (UA) (Negative) Urine Ketones (Negative) Urine Blood (Negative) Urine Nitrite (Negative) Urine Bilirubin (Negative) Urine Urobilinogen (<2.0) mg/dL Ur Leukocyte Esterase (Negative) Influenza Type A (PCR) (Not Detectd) Influenza Type B (PCR) (Not Detectd) RSV (PCR) (Not Detectd) SARS-CoV-2 (PCR) (Not Detectd) 10/07/24 10/07/24 10/07/24 Range/Units 19:53 19:53 20:49 WBC (4.50-10.00) 10*3/uL RBC (4.40-5.60) 10*6/uL Hgb (13.0-17.0) g/dL Hct (39.6-50.0) % MCV (80.0-97.0) fL MCH (27.0-32.0) pg MCHC (32.0-37.0) g/dL Plt Count (140-440) 10*3/uL MPV (9.5-12.2) fL Immature Gran % (Auto) % Neutrophils % % Lymphocytes % % Monocytes % % Eosinophils % % Basophils % % Immature Gran # (0.00-0.04) 10*3/uL Neutrophils # (1.80-7.70) 10*3/uL Lymphocytes # (0.90-5.00) 10*3/uL Monocytes # (0.20-1.00) 10*3/uL Eosinophils # (0.04-0.35) 10*3/uL Basophils # (0.00-0.10) 10*3/uL Immature Plt Fraction (1.1-6.1) % PT (10.0-12.5) sec INR (<1.2) APTT (22.0-30.0) sec Sodium (137-145) mmol/L Potassium (3.5-5.1) mmol/L Chloride (98-107) mmol/L Carbon Dioxide (22-30) mmol/L Anion Gap mmol/L BUN (9-20) mg/dL Creatinine (0.66-1.25) mg/dL Est GFR (CKD-EPI)AfAm (>60 ml/min/1.73 sqM) Est GFR (CKD-EPI)NonAf (>60 ml/min/1.73 sqM) Glucose (74-99) mg/dL Plasma Lactic Acid Devan 1.0 (0.7-2.0) mmol/L Calcium (8.4-10.2) mg/dL Magnesium (1.6-2.3) mg/dL Total Bilirubin (0.2-1.3) mg/dL AST (17-59) U/L ALT (4-49) U/L Alkaline Phosphatase (38-126) U/L Total Protein (6.3-8.2) g/dL Albumin (3.5-5.0) g/dL Urine Color Yellow Urine Appearance Clear (Clear) Urine pH 6.5 (5.0-8.0) Ur Specific [place] 1.015 (1.001-1.035) Urine Protein Negative (Negative) Urine Glucose (UA) Negative (Negative) Urine Ketones Negative (Negative) Urine Blood Negative (Negative) Urine Nitrite Negative (Negative) Urine Bilirubin Negative (Negative) Urine Urobilinogen 4.0 (<2.0) mg/dL Ur Leukocyte Esterase Negative (Negative) Influenza Type A (PCR) Not Detected (Not Detectd) Influenza Type B (PCR) Not Detected (Not Detectd) RSV (PCR) Not Detected (Not Detectd) SARS-CoV-2 (PCR) Not Detected (Not Detectd) - EKG Data EKG Comments: 12-lead Electrocardiogram Interpretation Note EKG was reviewed and interpreted by myself. 12-lead ECG performed at 1943 is interpreted by me as revealing normal sinus rhythm at a rate of 63 beats per mi nute. [place] is normal. ND interval is 201 ms, QRS duration is 89 ms, QTc is 422 ms.. There were no ST or T wave abnormalities to suggest myocardial ischemia or injury. R wave progression across the precordium was satisfactory. By my interpretation this EKG is non-diagnostic for acute ischemia. (Miguel Angel Hayes) Disposition Is patient prescribed a controlled substance at d/c from ED?: No <Herbert Jaime - Last Filed: 10/07/24 23:56> <Miguel Angel Hayes - Last Filed: 10/09/24 07:30> Clinical Impression: Fall Disposition: HOME SELF-CARE Condition: Good Instructions (If sedation given, give patient instructions): Fall Prevention for Older Adults (ED), Head Injury (DC), Back Pain (ED) Referrals: Rachael Reyes DO [Primary Care Provider] - 1-2 days
[2024-10-07 21:14] LABS: Appearance,Urine Clear (Clear); Bilirubin,Urine Negative (Negative); Blood,Urine Negative (Negative); Color,Urine Yellow; Glucose,Urine (UA) Negative (Negative); Ketones,Urine Negative (Negative); Leukocyte Esterase,Urine Negative (Negative); Nitrite,Urine Negative (Negative); PH, Urine 6.5 (5.0-8.0); Protein,Urine Negative (Negative); Specific Gravity,Urine 1.015 (1.001-1.035)
[2024-10-07 21:58] VITALS: RESP 18
--- NOTE | 2024-10-07 22:01 | CT ---
EXAMINATION TYPE: CT angio thor/abd pel aorta DATE OF EXAM: 10/07/2024 9:56 PM COMPARISON: . CLINICAL INDICATION: Male, 84 years old with history of back pain, hx of aortic aneurysm; PHH, Back p ain. abnormal CT thor/lumbar TECHNIQUE: CT angiogram chest abdomen pelvis. Multiple axial CT images of the chest, abdomen, and pelvis were ob tained prior to and after the administration of IV contrast. 3-D reformats and maximum intensity proj ection format were performed on a separate workstation. . Contrast used:100 ml mL of Isovue 370 with IV Contrast, Oral contrast used: CT DLP: 773.5 mGycm, Automated exposure control for dose reduction was used. FINDINGS: ARTERIAL VASCULATURE: Ascending thoracic aorta and descending thoracic aorta are within normal limits for size. Throughout the thoracic and abdominal aorta there are advanced calcified and noncalcified atherosclerotic changes. There is a penetrating atherosclerotic plaque seen involving the descending thoracic aorta measuring 7 mm diameter with a tiny penetrating atherosclerotic plaque suggested just cephalad. There is fusiform short segment aneurysmal dilatation of the infrarenal abdominal aorta britt suring 3.8 x 3.3 cm with the segment spanning centimeters. In this area of abdominal aortic aneurysm there is extensive mural wall thrombosis. There is no evidence for intramural hematoma within the aor ta on noncontrast imaging. Postcontrast imaging demonstrates no evidence for dissection.The visualize d vessels of the aortic arch are patent. The major vessels of the abdominal aorta are patent. PULMONARY ARTERIAL VASCULATURE: Normal caliber. LUNGS/ PLEURA: New trace bilateral pleural effusions. There are some scattered centrilobular and subt le paraseptal emphysematous changes seen most pronounced in the bilateral upper lobes. No focal conso lidations, or pneumothorax. Bibasilar atelectasis is present. AIRWAY: Patent and unremarkable. HEART: Heart is enlarged for size.Left ventricular hypertrophy is suggested. Aortic valve consultatio ns are present. Mild coronary artery atherosclerosis. MEDIASTINUM: Few nonenlarged lymph nodes are seen with no gross evidence of adenopathy. MUSCULOSKELETAL: No acute osseous abnormalities. Degenerative changes of the visualized spine are bartolome reciated. SOFT TISSUES/LYMPH NODES: Unremarkable. LOWER NECK: Subcentimeter hypodense nodule is seen in the left thyroid lobe.. Abdomen: LIVER: Unremarkable GALLBLADDER AND BILE DUCTS: The gallbladder is surgically absent. No biliary duct dilatation. PANCREAS: Unremarkable. SPLEEN: Unremarkable. ADRENAL GLANDS: Indeterminate left adrenal gland nodule measuring up to 1.0 cm. The right adrenal gla nd is unremarkable.. KIDNEYS AND URETERS: No evidence of hydronephrosis. Symmetric enhancement of the kidneys bilaterally. The ureters are unremarkable. Nonobstructing left 4 mm focus in right 3 mm calculus. PELVIS BLADDER: Unremarkable REPRODUCTIVE: The prostate is within normal size limits demonstrating coarse calcifications. There is a heterogenous attenuated mass/collection which appears to extend from the scrotum difficult to eulalia ure on this modality. ABDOMEN & PELVIS STOMACH AND BOWEL: Stomach is grossly unremarkable. The small bowel is of normal caliber. No evidence of bowel obstruction. PERITONEUM/RETROPERITONEUM: No evidence of pneumoperitoneum or free fluid. MUSCULOSKELETAL: No acute osseous abnormalities LYMPH NODES: No gross evidence for lymphadenopathy. SOFT TISSUE/ABDOMINAL WALL: Unremarkable IMPRESSION: 1. No evidence for acute thoracic aortic dissection or occlusion. No evidence for central pulmonary embolus. 2. Similar Advanced calcified and noncalcified atherosclerotic disease of the aorta. There is a penet rating atherosclerotic ulcer seen in the descending thoracic aorta measuring up to 7 mm in diameter w ith an additional suggested small ulcer suggested cephalad. 3. Martin Infrarenal abdominal aortic aneurysm measuring up to 3.8 cm with extensive mural thrombosi s. 4. Nonspecific mass/fluid collection seen extending from the scrotum is incompletely evaluated on thi s modality. Correlate for large hydrocele 5. Stable indeterminate left adrenal gland nodule measuring up to 1.0 cm. Correlate with any outside imaging or known history. Otherwise this can also be further characterized with an MRI abdomen adrena l mass protocol with IV contrast on a nonemergent outpatient basis. 6. Cardiomegaly with trace bilateral pleural effusions. 7. Nonobstructing bilateral renal calculi. [facility], , 10/07/2024 9:58 PM
[2024-10-08 00:14] VITALS: BP 142/80; PULSE 66
== END 2024-10-08 00:57 | disposition home or self-care (01) ==
LOC: EC 18:52
DX: S22.060A Wedge compression fracture of T7-T8 vertebra, initial encounter for closed fracture (principal); Z87.891 Personal history of nicotine dependence; Z86.73 Personal history of transient ischemic attack (TIA), and cerebral infarction without residual deficits; Z88.2 Allergy status to sulfonamides; W01.198A Fall on same level from slipping, tripping and stumbling with subsequent striking against other object, initial encounter
CPT/HCPCS: 36415; 93005; 80053; 83605; 83735; 85025; 85610; 85730; 81003; 87636; 72170; 71045; 72128; 72125; 72131; 70450; 71275; 74174; 99285; Q9967

== ENCOUNTER 2024-10-08 15:20 | Emergency (ER) | payer MEDICARE ==
[2024-10-08 15:31] VITALS: RESP 18
--- NOTE | 2024-10-08 15:56 | ED ---
General Adult HPI - General Chief complaint: Altered Mental Status Stated complaint: Syncopal episode Time Seen by Provider: 10/08/24 15:30 Source: patient, EMS, RN notes reviewed Mode of arrival: EMS Limitations: no limitations - History of Present Illness Initial comments: 84-year-old male presents to the emergency department sent in from [facility] for decreased alertness. According to paramedics the patient was found by nursing staff in his room with decreased responsiveness. They administered Narcan and the patient did seem to have response to this. Patient does not recall what happened with the event but does note that he fell yesterday and was evaluated at that time. At this time, he is alert and oriented and his only complaint is central low back pain. He has been experiencing this for 2 to 3 weeks. He denies any chest pain, shortness of breath. Denies headache, blurred vision. Denies any recent illness, denies fever, chills. - Related Data Home Medications Medication Instructions Recorded Confirmed Alfuzosin HCl [Uroxatral ER] 10 mg PO BID 01/13/17 10/08/24 OXcarbazepine [Trileptal] 300 mg PO DAILY 01/13/17 10/08/24 Acetaminophen [Tylenol] 325 mg PO Q6H PRN 10/08/24 10/08/24 Atorvastatin [Lipitor] 40 mg PO DAILY 10/08/24 10/08/24 Ergocalciferol [Vitamin D2 (1250 1,250 mcg PO FR 10/08/24 10/08/24 Mcg = 43710 Iu)] Gabapentin 300 mg PO DAILY 10/08/24 10/08/24 Lidocaine 5% Patch [Lidoderm] 1 patch TRANSDERM Q24H PRN 10/08/24 10/08/24 Nitroglycerin Sl Tabs [Nitrostat] 0.4 mg SL Q5M PRN 10/08/24 10/08/24 Rivaroxaban [Xarelto] 15 mg PO HS 10/08/24 10/08/24 dilTIAZem HCL 120 mg PO DAILY 10/08/24 10/08/24 Previous Rx's Medication Instructions Recorded Amiodarone [Cordarone] 200 mg PO TID #0 tab 10/03/24 Aspirin 81 mg PO DAILY tab 10/03/24 Isosorbide Mononitrate ER [Imdur] 30 mg PO DAILY tab 10/03/24 Metoprolol Succinate (ER) [Toprol 25 mg PO DAILY tab 10/03/24 XL] Allergies Allergy/AdvReac Type Severity Reaction Status Date / Time Sulfa (Sulfonamide Allergy Dyspnea Verified 10/08/24 17:21 Antibiotics) Review of Systems ROS Statement: Those systems with pertinent positive or pertinent negative responses have been documented in the HPI. ROS Other: All systems not noted in ROS Statement are negative. 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 BPH. has cpap not wearing right now. History of Any Multi-Drug Resistant Organisms: None Reported Past Surgical History: Hernia Repair Additional Past Surgical History / Comment(s): BILATERAL INGUINAL. cyst removed left testicle, juice cataracts, laser rt eye, pain clinic Past Anesthesia/Blood Transfusion Reactions: No Reported Reaction Past Psychological History: No Psychological Hx Reported Smoking Status: Former smoker Past Alcohol Use History: Occasional Past Drug Use History: None Reported - Past Family History Mother Family Medical History: No Reported History Father Family Medical History: Myocardial Infarction ([place]) General Exam Limitations: no limitations General appearance: alert, in no apparent distress Head exam: Present: atraumatic, normocephalic, normal inspection Eye exam: Present: normal appearance, PERRL, EOMI. Absent: scleral icterus, conjunctival injection, periorbital swelling ENT exam: Present: normal exam, mucous membranes moist Respiratory exam: Present: normal lung sounds bilaterally. Absent: respiratory distress, wheezes, rales, rhonchi, stridor Cardiovascular Exam: Present: regular rate, normal rhythm, normal heart sounds. Absent: systolic murmur, diastolic murmur, rubs, gallop, clicks GI/Abdominal exam: Present: soft. Absent: distended, tenderness, guarding, rebound, rigid Extremities exam: Present: normal inspection, full ROM, normal capillary refill. Absent: tenderness, pedal edema, joint swelling, calf tenderness Back exam: Present: normal inspection, tenderness Neurological exam: Present: alert, oriented X3 Psychiatric exam: Present: normal affect, normal mood Skin exam: Present: warm, dry, intact, normal color. Absent: rash Course Vital Signs 10/08/24 10/08/24 10/08/24 15:25 17:00 20:33 Temperature 97.4 F L Pulse Rate 61 56 L 61 Respiratory 18 18 18 Rate Blood Pressure 99/61 109/64 132/84 O2 Sat by Pulse 92 L 98 95 Oximetry 10/08/24 21:33 Temperature 98.4 F Pulse Rate 61 Respiratory 18 Rate Blood Pressure 135/80 O2 Sat by Pulse 98 Oximetry Medical Decision Making - Medical Decision Making Was pt. sent in by a medical professional or institution (, PA, BRAND SPECIALIST, urgent care, hospital, or [facility]...) When possible be specific @ -No Did you speak to anyone other than the patient for history (EMS, parent, family, police, friend...)? What history was obtained from this source @ -Paramedics provided some history of this patient Did you review nursing and triage notes (agree or disagree)? Why? @ -I reviewed and agree with nursing and triage notes Were old charts reviewed (outside hosp., previous admission, EMS record, old EKG, old radiological studies, urgent care reports/EKG's, [facility] records)? Report findings @ -No old charts were reviewed Differential Diagnosis (chest pain, altered mental status, abdominal pain women, abdominal pain men, vaginal bleeding, weakness, fever, dyspnea, syncope, headache, dizziness, GI bleed, back pain, seizure, CVA, palpatations, mental health, musculoskeletal)? @ -Differential Syncope: Valvular disease, hypertrophic cardiomyopathy, pulmonary embolism, tamponade, tachycardia, bradycardia, [place], hypovolemia, hemorrhage, dissection, anemia, intr acranial hemorrhage, seizure, hypoglycemia, carbon monoxide poisoning, this is not meant to be an all-inclusive list. EKG interpreted by me (3pts min.). @ -EKG at 1540 shows sinus bradycardia rate 58, MO 209, QRS 84, QTQTc 238013 X-rays interpreted by me (1pt min.). @ -Chest x-ray reveals findings consistent with mild pulmonary venous congestion CT interpreted by me (1pt min.). @ -CT of the brain reveals chronic changes without evidence for acute process U/S interpreted by me (1pt. min.). @ -None done What testing was considered but not performed or refused? (CT, X-rays, U/S, labs)? Why? @ -None What meds were considered but not given or refused? Why? @ -None Did you discuss the management of the patient with other professionals (professionals i.e. , PA, BRAND SPECIALIST, lab, RT, psych nurse, social media campaign manager, open hearth worker, teacher, immigration services officer, wrapper caser)? Give summary @ -No Was smoking cessation discussed for >3mins.? @ -No Was critical care preformed (if so, how long)? @ -No Were there social determinants of health that impacted care today? How? (Homelessness, low income, unemployed, alcoholism, drug addiction, transportation, low edu. Level, literacy, decrease access to med. care, penitentiary, rehab)? @ -No Was there de-escalation of care discussed even if they declined (Discuss DNR or withdrawal of care, Hospice)? DNR status @ -No What co-morbidities impacted this encounter? (DM, HTN, Smoking, COPD, CAD, Cancer, CVA, ARF, Chemo, Hep., AIDS, mental health diagnosis, sleep apnea, morbid obesity)? @ -None Was patient admitted / discharged? Hospital course, mention meds given and route, prescriptions, significant lab abnormalities, going to OR and other pe rtinent info. @ -Discharge. Patient presents emergency department for evaluationLaboratory studies reveal WBC of 2.7, hemoglobin 9.8 which is stable from prior. Patient has sodium 136, potassium 3.4 troponin of 0.077 which is improved from prior on 09/27, BNP elevated at 2370. UA shows no evidence of infectious process, negative urine drug screen. Chest x-ray reveals mild pulmonary venous congestion. I reviewed the CT scan from his prior visit yesterday of his spine, brain, thoraci c aorta. Patient is alert and oriented on my examination, normal neurological examination. Only reporting low back pain. Denies any chest pain or shortness of breath. Patient was advised of the findings today. He will be discharged back to [facility]. Case discussed with Dr. Pinzon. Undiagnosed new problem with uncertain prognosis? @ -No Drug Therapy requiring intensive monitoring for toxicity (Heparin, Nitro, Insulin, Cardizem)? @ -No Were any procedures done? @ -No Diagnosis/symptom? @ -Syncope Acute, or Chronic, or Acute on Chronic? @ -Acute Uncomplicated (without systemic symptoms) or Complicated (systemic symptoms)? @ -Uncomplicated Side effects of treatment? @ -No Exacerbation, Progression, or Severe Exacerbation? @ -No Poses a threat to life or bodily function? How? (Chest pain, [place], [place], pneumonia, PE, COPD, DKA, ARF, appy, cholecystitis, CVA, Diverticulitis, Homicidal, Suicidal, threat to staff... and all critical care pts) @ -No - Lab Data Result diagrams: 10/08/24 15:59 10/08/24 15:59 Lab Results 10/08/24 10/08/24 10/08/24 Range/Units 15:59 15:59 15:59 WBC 2.75 L (4.50-10.00) 10*3/uL RBC 3.12 L (4.40-5.60) 10*6/uL Hgb 9.8 L (13.0-17.0) g/dL Hct 28.2 L (39.6-50.0) % MCV 90.4 (80.0-97.0) fL MCH 31.4 (27.0-32.0) pg MCHC 34.8 (32.0-37.0) g/dL Plt Count 100 L (140-440) 10*3/uL MPV 10.7 (9.5-12.2) fL Immature Gran % (Auto) 0.7 % Neutrophils % 67.9 % Lymphocytes % 14.2 % Monocytes % 16.4 % Eosinophils % 0.4 % Basophils % 0.4 % Immature Gran # 0.02 (0.00-0.04) 10*3/uL Neutrophils # 1.87 (1.80-7.70) 10*3/uL Lymphocytes # 0.39 L (0.90-5.00) 10*3/uL Monocytes # 0.45 (0.20-1.00) 10*3/uL Eosinophils # 0.01 L (0.04-0.35) 10*3/uL Basophils # 0.01 (0.00-0.10) 10*3/uL Immature Plt Fraction 3.0 (1.1-6.1) % PT 19.6 H (10.0-12.5) sec INR 1.9 H (<1.2) APTT 37.4 H (22.0-30.0) sec Sodium 136 L (137-145) mmol/L Potassium 3.4 L (3.5-5.1) mmol/L Chloride 109 H (98-107) mmol/L Carbon Dioxide 19 L (22-30) mmol/L Anion Gap 8 mmol/L BUN 12 (9-20) mg/dL Creatinine 0.95 (0.66-1.25) mg/dL Est GFR (CKD-EPI)AfAm 86 (>60 ml/min/1.73 sqM) Est GFR (CKD-EPI)NonAf 74 (>60 ml/min/1.73 sqM) Glucose 123 H (74-99) mg/dL Calcium 7.9 L (8.4-10.2) mg/dL Total Bilirubin 0.9 (0.2-1.3) mg/dL AST 23 (17-59) U/L ALT 16 (4-49) U/L Alkaline Phosphatase 63 (38-126) U/L Troponin I (0.000-0.034) ng/mL NT-Pro-B Natriuret Pep pg/mL Total Protein 4.7 L (6.3-8.2) g/dL Albumin 2.3 L (3.5-5.0) g/dL Urine Color Urine Appearance (Clear) Urine pH (5.0-8.0) Ur Specific [place] (1.001-1.035) Urine Protein (Negative) Urine Glucose (UA) (Negative) Urine Ketones (Negative) Urine Blood (Negative) Urine Nitrite (Negative) Urine Bilirubin (Negative) Urine Urobilinogen (<2.0) mg/dL Ur Leukocyte Esterase (Negative) Salicylates <1.0 mg/dL Urine Opiates Screen (NotDetected) Ur Oxycodone Screen (NotDetected) Urine Methadone Screen (NotDetected) Acetaminophen 16.3 ug/mL Ur Barbiturates Screen (NotDetected) U Tricyclic Antidepress (NotDetected) Ur Phencyclidine Scrn (NotDetected) Ur Amphetamines Screen (NotDetected) U Methamphetamines Scrn (NotDetected) U Benzodiazepines Scrn (NotDetected) Urine Cocaine Screen (NotDetected) U Marijuana (THC) Screen (NotDetected) 10/08/24 10/08/24 10/08/24 Range/Units 15:59 15:59 19:53 WBC (4.50-10.00) 10*3/uL RBC (4.40-5.60) 10*6/uL Hgb (13.0-17.0) g/dL Hct (39.6-50.0) % MCV (80.0-97.0) fL MCH (27.0-32.0) pg MCHC (32.0-37.0) g/dL Plt Count (140-440) 10*3/uL MPV (9.5-12.2) fL Immature Gran % (Auto) % Neutrophils % % Lymphocytes % % Monocytes % % Eosinophils % % Basophils % % Immature Gran # (0.00-0.04) 10*3/uL Neutrophils # (1.80-7.70) 10*3/uL Lymphocytes # (0.90-5.00) 10*3/uL Monocytes # (0.20-1.00) 10*3/uL Eosinophils # (0.04-0.35) 10*3/uL Basophils # (0.00-0.10) 10*3/uL Immature Plt Fraction (1.1-6.1) % PT (10.0-12.5) sec INR (<1.2) APTT (22.0-30.0) sec Sodium (137-145) mmol/L Potassium (3.5-5.1) mmol/L Chloride (98-107) mmol/L Carbon Dioxide (22-30) mmol/L Anion Gap mmol/L BUN (9-20) mg/dL Creatinine (0.66-1.25) mg/dL Est GFR (CKD-EPI)AfAm (>60 ml/min/1.73 sqM) Est GFR (CKD-EPI)NonAf (>60 ml/min/1.73 sqM) Glucose (74-99) mg/dL Calcium (8.4-10.2) mg/dL Total Bilirubin (0.2-1.3) mg/dL AST (17-59) U/L ALT (4-49) U/L Alkaline Phosphatase (38-126) U/L Troponin I 0.077 H* (0.000-0.034) ng/mL NT-Pro-B Natriuret Pep 2370 pg/mL Total Protein (6.3-8.2) g/dL Albumin (3.5-5.0) g/dL Urine Color Yellow Urine Appearance Clear (Clear) Urine pH 6.0 (5.0-8.0) Ur Specific [place] 1.045 H (1.001-1.035) Urine Protein Trace H (Negative) Urine Glucose (UA) Negative (Negative) Urine Ketones Negative (Negative) Urine Blood Negative (Negative) Urine Nitrite Negative (Negative) Urine Bilirubin Negative (Negative) Urine Urobilinogen 4.0 (<2.0) mg/dL Ur Leukocyte Esterase Negative (Negative) Salicylates mg/dL Urine Opiates Screen Not Detected (NotDetected) Ur Oxycodone Screen Not Detected (NotDetected) Urine Methadone Screen Not Detected (NotDetected) Acetaminophen ug/mL Ur Barbiturates Screen Not Detected (NotDetected) U Tricyclic Antidepress Not Detected (NotDetected) Ur Phencyclidine Scrn Not Detected (NotDetected) Ur Amphetamines Screen Not Detected (NotDetected) U Methamphetamines Scrn Not Detected (NotDetected) U Benzodiazepines Scrn Not Detected (NotDetected) Urine Cocaine Screen Not Detected (NotDetected) U Marijuana (THC) Screen Not Detected (NotDetected) Disposition Clinical Impression: Back pain, CHF (congestive heart failure) Disposition: HOME SELF-CARE Condition: Stable Instructions (If sedation given, give patient instructions): Altered Mental Status (ED) Additional Instructions: Please follow-up your doctor. Return to the emergency department for new or worsening symptoms. Is patient prescribed a controlled substance at d/c from ED?: No Referrals: Rachael Reyes DO [Primary Care Provider] - 1-2 days
[2024-10-08] MEDS: SODIUM CHLORIDE 0.9% 500 ML 500 ML IV ONE (16:01)
[2024-10-08 16:17] LABS: Basophils # (A) 0.01 10*3/uL (0.00-0.10); Basophils % (A) 0.4 %; Eosinophils # (A) 0.01 10*3/uL (0.04-0.35); Eosinophils % (A) 0.4 %; HCT 28.2 % (39.6-50.0); HGB 9.8 g/dL (13.0-17.0); Lymphocytes # (A) 0.39 10*3/uL (0.90-5.00); Lymphocytes % (A) 14.2 %; MCH 31.4 pg (27.0-32.0); MCHC 34.8 g/dL (32.0-37.0); MCV 90.4 fL (80.0-97.0); Mean Platelet Volume 10.7 fL (9.5-12.2); Monocytes # (A) 0.45 10*3/uL (0.20-1.00); Monocytes % (A) 16.4 %; Neutrophils # (A) 1.87 10*3/uL (1.80-7.70); Neutrophils % (A) 67.9 %; Platelet Count 100 10*3/uL (140-440); RBC 3.12 10*6/uL (4.40-5.60); RDW 16.3 % (11.5-14.5); WBC 2.75 10*3/uL (4.50-10.00)
--- NOTE | 2024-10-08 16:23 | XR ---
EXAMINATION TYPE: XR chest 2V DATE OF EXAM: 10/08/2024 4:13 PM COMPARISON: Chest radiograph from one day prior. CLINICAL INDICATION: Male, 84 years old with history of altered mental status; [facility] TECHNIQUE: XR chest 2V Frontal and lateral views of the chest. FINDINGS: Lungs/Pleura: There is no evidence of pleural effusion, focal consolidation, or pneumothorax. Pulmonary vascularity: Pulmonary vascular congestion. Heart/mediastinum: Cardiomediastinal silhouette is enlarged. Atherosclerotic calcifications are seen in the aorta. Musculoskeletal: No acute osseous pathology. IMPRESSION: Cardiomegaly and mild pulmonary vascular congestion. Correlate with BNP for congestive heart failure. [facility], Workstation: [facility], 10/08/2024 4:20 PM
[2024-10-08 16:26] LABS: INR 1.9 (<1.2); Partial Thromboplastin Time 37.4 sec (22.0-30.0); Prothrombin Time 19.6 sec (10.0-12.5)
[2024-10-08 16:40] LABS: ALT 16 U/L (4-49); AST 23 U/L (17-59); Acetaminophen 16.3 ug/mL; African American GFR (CKD) 86 (>60 ml/min/1.73 sqM); Albumin 2.3 g/dL (3.5-5.0); Alkaline Phosphatase 63 U/L (38-126); Anion Gap 8 mmol/L; Blood Urea Nitrogen 12 mg/dL (9-20); Calcium 7.9 mg/dL (8.4-10.2); Carbon Dioxide 19 mmol/L (22-30); Chloride 109 mmol/L (98-107); Glucose 123 mg/dL (74-99); Non-African American GFR(CKD) 74 (>60 ml/min/1.73 sqM); Potassium 3.4 mmol/L (3.5-5.1); Salicylate <1.0 mg/dL; Sodium 136 mmol/L (137-145); Total Bilirubin 0.9 mg/dL (0.2-1.3); Total Protein 4.7 g/dL (6.3-8.2)
--- NOTE | 2024-10-08 19:46 | CT ---
EXAMINATION TYPE: CT brain wo con DATE OF EXAM: 10/08/2024 7:24 PM COMPARISON: Prior CT head study 10/07/2024. CLINICAL INDICATION: Male, 84 years old with history of fall yesterday, ams, FALL/WEAK/CONFUSED TECHNIQUE: Brain: Axial CT images of the brain were obtained with coronal and sagittal reformats created and rev iewed. Contrast used: None. Oral contrast used: None. CT DLP: 1112 mGycm, Automated exposure control for dose reduction was used. FINDINGS: Brain: Extra-axial spaces: No abnormal extra-axial fluid collections. Ventricular system: Dilatation in proportion to cerebral atrophy. Cerebral parenchyma: No acute intraparenchymal hemorrhage or mass effect. Redemonstration right-side d encephalomalacia involving the parietal lobe likely reflecting remote infarct given associated ex v acuo dilatation of the right lateral ventricle Scattered hypoattenuating areas are seen within the wh ite matter. Cerebellum: Unremarkable. Mass effect: No evidence of midline shift. Intracranial vasculature: unremarkable Soft tissues: Normal. Calvarium/osseous structures: No depressed skull fracture. Paranasal sinuses and mastoid air cells: Mild scattered paranasal sinus disease. Visualized orbits: The lenses are surgically removed from the globes. IMPRESSION: No acute intracranial process. [facility], , 10/08/2024 7:43 PM
[2024-10-08 20:10] LABS: Appearance,Urine Clear (Clear); Bilirubin,Urine Negative (Negative); Blood,Urine Negative (Negative); Color,Urine Yellow; Glucose,Urine (UA) Negative (Negative); Ketones,Urine Negative (Negative); Leukocyte Esterase,Urine Negative (Negative); Nitrite,Urine Negative (Negative); Protein,Urine Trace (Negative); Specific Gravity,Urine 1.045 (1.001-1.035)
[2024-10-08 20:20] LABS: Amphetamine Screen,Urine Not Detected (NotDetected); Barbiturate Screen,Urine Not Detected (NotDetected); Benzodiazepines Screen,Urine Not Detected (NotDetected); Cocaine Screen,Urine Not Detected (NotDetected); Methadone Screen, Urine Not Detected (NotDetected); Opiate Screen,Urine Not Detected (NotDetected); Oxycodone Screen, Urine Not Detected (NotDetected); Phencyclidine Screen,Urine Not Detected (NotDetected); Tricyclic Antidepressant,Urine Not Detected (NotDetected); Urn Cannabinoid Scrn Not Detected (NotDetected)
[2024-10-08 20:35] VITALS: PULSE 61
[2024-10-08 21:36] VITALS: BP 135/80; TEMP 98.4
== END 2024-10-08 23:07 | disposition home or self-care (01) ==
LOC: EC 15:20
DX: I11.0 Hypertensive heart disease with heart failure (principal); I50.9 Heart failure, unspecified; M54.9 Dorsalgia, unspecified; Z88.2 Allergy status to sulfonamides; Z87.891 Personal history of nicotine dependence; Z86.73 Personal history of transient ischemic attack (TIA), and cerebral infarction without residual deficits
CPT/HCPCS: 36415; 70450; 71046; 80053; 80143; 80179; 80306; 81003; 83880; 84484; 85025; 85610; 85730; 93005; 96360; 99285

== ENCOUNTER 2024-10-23 18:39 | Observation (INO) | payer MEDICARE ==
--- NOTE | 2024-10-23 19:41 | ED ---
General Adult HPI - General Chief complaint: Nausea/Vomiting/Diarrhea Stated complaint: Hypotension Time Seen by Provider: 10/23/24 18:41 Source: patient, EMS, RN notes reviewed Mode of arrival: EMS Limitations: no limitations - History of Present Illness Initial comments: Patient is an 84-year-old male present [facility] emergency department [facility] with concern for hypotension. Patient states he has been a little bit lightheaded for the past day. There was also some concern for left arm discomfort. Patient states he had some mild tingling near his left wrist earlier however that has resolved. Patient denies any chest pain. No confusion or weakness. - Related Data Home Medications Medication Instructions Recorded Confirmed Alfuzosin HCl [Uroxatral ER] 10 mg PO BID 01/13/17 10/08/24 OXcarbazepine [Trileptal] 300 mg PO DAILY 01/13/17 10/08/24 Acetaminophen [Tylenol] 325 mg PO Q6H PRN 10/08/24 10/08/24 Atorvastatin [Lipitor] 40 mg PO DAILY 10/08/24 10/08/24 Ergocalciferol [Vitamin D2 (1250 1,250 mcg PO FR 10/08/24 10/08/24 Mcg = 65945 Iu)] Gabapentin 300 mg PO DAILY 10/08/24 10/08/24 Lidocaine 5% Patch [Lidoderm] 1 patch TRANSDERM Q24H PRN 10/08/24 10/08/24 Nitroglycerin Sl Tabs [Nitrostat] 0.4 mg SL Q5M PRN 10/08/24 10/08/24 Rivaroxaban [Xarelto] 15 mg PO HS 10/08/24 10/08/24 dilTIAZem HCL 120 mg PO DAILY 10/08/24 10/08/24 Previous Rx's Medication Instructions Recorded Amiodarone [Cordarone] 200 mg PO TID #0 tab 10/03/24 Aspirin 81 mg PO DAILY tab 10/03/24 Isosorbide Mononitrate ER [Imdur] 30 mg PO DAILY tab 10/03/24 Metoprolol Succinate (ER) [Toprol 25 mg PO DAILY tab 10/03/24 XL] Allergies Allergy/AdvReac Type Severity Reaction Status Date / Time Sulfa (Sulfonamide Allergy Dyspnea Verified 10/23/24 18:48 Antibiotics) Review of Systems ROS Statement: Those systems with pertinent positive or pertinent negative responses have been documented in the HPI. ROS Other: All systems not noted in ROS Statement are negative. 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 BPH. has cpap not wearing right now. History of Any Multi-Drug Resistant Organisms: None Reported Past Surgical History: Hernia Repair Additional Past Surgical History / Comment(s): BILATERAL INGUINAL. cyst removed left testicle, juice cataracts, laser rt eye, pain clinic Past Anesthesia/Blood Transfusion Reactions: No Reported Reaction Past Psychological History: No Psychological Hx Reported Smoking Status: Former smoker Past Alcohol Use History: Occasional Past Drug Use History: None Reported - Past Family History Mother Family Medical History: No Reported History Father Family Medical History: Myocardial Infarction ([place]) General Exam Limitations: no limitations General appearance: alert, in no apparent distress Head exam: Present: normocephalic Eye exam: Present: normal appearance, PERRL, EOMI ENT exam: Present: normal oropharynx Neck exam: Present: normal inspection. Absent: meningismus Respiratory exam: Present: normal lung sounds bilaterally Cardiovascular Exam: Present: regular rate, normal rhythm GI/Abdominal exam: Present: soft. Absent: tenderness, pulsatile mass Extremities exam: Present: normal inspection. Absent: pedal edema, calf tenderness Neurological exam: Present: alert, CN II-XII intact. Absent: motor sensory deficit Expanded Motor strength exam: RUE: 5, LUE: 5, RLE: 5, LLE: 5 Psychiatric exam: Present: normal affect, normal mood Skin exam: Present: normal color Course Vital Signs 10/23/24 10/23/24 18:41 18:53 Temperature 97.8 F Pulse Rate 56 L Respiratory 16 Rate Blood Pressure 93/54 O2 Sat by Pulse 96 Oximetry Medical Decision Making - Medical Decision Making Was pt. sent in by a medical professional or institution (, PA, [employer], urgent care, hospital, or [facility]...) When possible be specific @ -Patient sent from [facility] Did you speak to anyone other than the patient for history (EMS, parent, family, police, friend...)? What history was obtained from this source @ -No Did you review nursing and triage notes (agree or disagree)? Why? @ -Chart reviewed from [facility] Were old charts reviewed (outside hosp., previous admission, EMS record, old EKG, old radiological studies, urgent care reports/EKG's, [facility] records)? Report findings @ -No old charts were reviewed Differential Diagnosis (chest pain, altered mental status, abdominal pain women, abdominal pain men, vaginal bleeding, weakness, fever, dyspnea, syncope, headache, dizziness, GI bleed, back pain, seizure, CVA, palpatations, mental health, musculoskeletal)? @ -Differential Weakness: Hypoglycemia, shock, sepsis, hyponatremia, anemia, infection, AL, ETOH, adverse medicine reaction, overdose, stroke, this is not meant to be an all-inclusive list. EKG interpreted by me (3pts min.). @ -As above X-rays interpreted by me (1pt min.). @ -2 view chest x-ray interpreted by myself shows no acute process. CT interpreted by me (1pt min.). @ -None done U/S interpreted by me (1pt. min.). @ -None done What testing was considered but not performed or refused? (CT, X-rays, U/S, labs)? Why? @ -None What meds were considered but not given or refused? Why? @ -None Did you discuss the management of the patient with other professionals (professionals i.e. , PA, [employer], lab, RT, psych nurse, social media editor, electronic technician, teacher, special assets officer, pillowcase cleaner)? Give summary @ -Case discussed with practitioner Bev Dodson will admit covering Dr. Mayers Was smoking cessation discussed for >3mins.? @ -No Was critical care preformed (if so, how long)? @ -No Were there social determinants of health that impacted care today? How? (Homelessness, low income, unemployed, alcoholism, drug addiction, transportation, low edu. Level, literacy, decrease access to med. care, halfway, rehab)? @ -No Was there de-escalation of care discussed even if they declined (Discuss DNR or withdrawal of care, Hospice)? DNR status @ -No What co-morbidities impacted this encounter? (DM, HTN, Smoking, COPD, CAD, Cancer, CVA, ARF, Chemo, Hep., AIDS, mental health diagnosis, sleep apnea, mo rbid obesity)? @ -None Was patient admitted / discharged? Hospital course, mention meds given and route, prescriptions, significant lab abnormalities, going to OR and other pertinent info. @ -Patient presents with low blood pressure. Blood pressure has been low but not critical. Patient will be admitted pending further lab results. Patient updated Undiagnosed new problem with uncertain prognosis? @ -No Drug Therapy requiring intensive monitoring for toxicity (Heparin, Nitro, Insulin, Cardizem)? @ -No Were any procedures done? @ -No Diagnosis/symptom? @ -Hypotension Acute, or Chronic, or Acute on Chronic? @ -Acute Uncomplicated (without systemic symptoms) or Complicated (systemic symptoms)? @ -Default Side effects of treatment? @ -No Exacerbation, Progression, or Severe Exacerbation? @ -No Poses a threat to life or bodily function? How? (Chest pain, USA, AL, pneumonia, PE, COPD, DKA, ARF, appy, cholecystitis, CVA, Diverticulitis, Homicidal, Suicidal, threat to staff... and all critical care pts) @ -No Disposition Clinical Impression: Hypotension Disposition: ADMITTED IP TO THIS HOSP Is patient prescribed a controlled substance at d/c from ED?: No Referrals: Amy Dawson DO [Primary Care Provider] - 1-2 days Time of Disposition: 21:06
[2024-10-23] MEDS: SODIUM CHLORIDE 0.9% 1,000 ML IV SCH (20:12)
--- NOTE | 2024-10-23 20:37 | XR ---
EXAMINATION TYPE: XR chest 2V DATE OF EXAM: 10/23/2024 8:31 PM COMPARISON: Chest radiographs from 10/08/2024 TECHNIQUE: XR chest 2V Frontal and lateral views of the chest. CLINICAL INDICATION:Male, 84 years old with history of Weakness; FINDINGS: Lungs/Pleura: There is no evidence of pleural effusion, focal consolidation, or pneumothorax. Pulmonary vascularity: Unremarkable. Heart/mediastinum: Cardiomediastinal silhouette is enlarged and stable. Atherosclerotic calcificatio ns are seen in the aorta. Musculoskeletal: Multiple level degenerative disc disease changes seen throughout the spine. Chronic anterior wedge compression deformity of the T7 vertebral body with approximately 30% height loss. IMPRESSION: Chronic changes without acute pulmonary process. No significant change from prior. [facility], , 10/23/2024 8:35 PM
[2024-10-23] MEDS ORDERED: NALOXONE 0.4 MG/ML 1 ML VIAL IV PRN (21:06)
[2024-10-23 21:15] LABS: Basophils # (A) 0.01 10*3/uL (0.00-0.10); Basophils % (A) 0.4 %; Eosinophils # (A) 0.01 10*3/uL (0.04-0.35); Eosinophils % (A) 0.4 %; HCT 30.3 % (39.6-50.0); HGB 10.2 g/dL (13.0-17.0); Immature Platelet Fraction 2.2 % (1.1-6.1); Lymphocytes # (A) 0.56 10*3/uL (0.90-5.00); Lymphocytes % (A) 21.7 %; MCH 31.4 pg (27.0-32.0); MCHC 33.7 g/dL (32.0-37.0); MCV 93.2 fL (80.0-97.0); Monocytes # (A) 0.43 10*3/uL (0.20-1.00); Monocytes % (A) 16.7 %; Neutrophils # (A) 1.56 10*3/uL (1.80-7.70); Neutrophils % (A) 60.4 %; Platelet Count 131 10*3/uL (140-440); RBC 3.25 10*6/uL (4.40-5.60); RDW 16.4 % (11.5-14.5); WBC 2.58 10*3/uL (4.50-10.00)
[2024-10-23 21:29] LABS: INR 1.2 (<1.2); Partial Thromboplastin Time 30.9 sec (22.0-30.0); Prothrombin Time 13.3 sec (10.0-12.5)
[2024-10-23 21:32] LABS: ALT 13 U/L (4-49); AST 21 U/L (17-59); African American GFR (CKD) 66 (>60 ml/min/1.73 sqM); Albumin 2.8 g/dL (3.5-5.0); Alkaline Phosphatase 159 U/L (38-126); Anion Gap 9 mmol/L; Blood Urea Nitrogen 19 mg/dL (9-20); Calcium 8.7 mg/dL (8.4-10.2); Carbon Dioxide 24 mmol/L (22-30); Chloride 102 mmol/L (98-107); Glucose 86 mg/dL (74-99); Magnesium 2.0 mg/dL (1.6-2.3); Non-African American GFR(CKD) 57 (>60 ml/min/1.73 sqM); Potassium 3.3 mmol/L (3.5-5.1); Sodium 135 mmol/L (137-145); Total Protein 5.3 g/dL (6.3-8.2)
[2024-10-24 05:04] LABS: Basophils # (A) 0.01 10*3/uL (0.00-0.10); Basophils % (A) 0.5 %; Eosinophils # (A) 0.06 10*3/uL (0.04-0.35); Eosinophils % (A) 2.9 %; HCT 28.5 % (39.6-50.0); HGB 9.6 g/dL (13.0-17.0); Immature Platelet Fraction 1.9 % (1.1-6.1); Lymphocytes # (A) 0.53 10*3/uL (0.90-5.00); Lymphocytes % (A) 25.6 %; MCH 31.5 pg (27.0-32.0); MCHC 33.7 g/dL (32.0-37.0); MCV 93.4 fL (80.0-97.0); Monocytes # (A) 0.34 10*3/uL (0.20-1.00); Monocytes % (A) 16.4 %; Neutrophils # (A) 1.13 10*3/uL (1.80-7.70); Neutrophils % (A) 54.6 %; Platelet Count 127 10*3/uL (140-440); RBC 3.05 10*6/uL (4.40-5.60); RDW 16.6 % (11.5-14.5); WBC 2.07 10*3/uL (4.50-10.00)
[2024-10-24 05:14] LABS: ALT 11 U/L (4-49); AST 20 U/L (17-59); African American GFR (CKD) 75 (>60 ml/min/1.73 sqM); Albumin 2.6 g/dL (3.5-5.0); Alkaline Phosphatase 150 U/L (38-126); Anion Gap 8 mmol/L; Blood Urea Nitrogen 18 mg/dL (9-20); Calcium 8.4 mg/dL (8.4-10.2); Carbon Dioxide 22 mmol/L (22-30); Chloride 105 mmol/L (98-107); Glucose 89 mg/dL (74-99); Non-African American GFR(CKD) 65 (>60 ml/min/1.73 sqM); Potassium 3.1 mmol/L (3.5-5.1); Sodium 135 mmol/L (137-145); Total Protein 5.1 g/dL (6.3-8.2)
[2024-10-24] MEDS ORDERED: LIDOCAINE 4% PATCH TOPICAL PRN (14:08)
[2024-10-24] MEDS ORDERED: METOCLOPRAMIDE 10 MG TAB PO PRN (14:08)
[2024-10-24] MEDS ORDERED: MAGNESIUM HYDROXIDE 2,400 MG/30 ML CUP PO PRN (14:08)
[2024-10-24] MEDS ORDERED: HYDROcodone/APAP 5-325MG 1 EACH TAB PO PRN ×2 (14:08)
[2024-10-24] MEDS ORDERED: NITROGLYCERIN SL TABS 0.4 MG TAB SUBLINGUAL PRN (14:08)
[2024-10-24] MEDS ORDERED: LIDOCAINE 5% TRANSDERM PRN (14:08)
[2024-10-24] MEDS ORDERED: ACETAMINOPHEN TAB 325 MG TAB PO PRN (14:08)
[2024-10-24] MEDS ORDERED: Potassium Replacement Protocol 1 EACH MISC MISCELLANE PRN (14:11)
[2024-10-24 14:12] LABS: Bacteria,Urine Occasional /hpf; Bilirubin,Urine Negative (Negative); Blood,Urine Negative (Negative); Color,Urine Light Yellow; Glucose,Urine (UA) Negative (Negative); Hyaline Casts,Urine 3 /lpf (0-2); Ketones,Urine Negative (Negative); Leukocyte Esterase,Urine Moderate (Negative); Mucus,Urine Rare /hpf; Nitrite,Urine Negative (Negative); PH, Urine 6.5 (5.0-8.0); Protein,Urine Negative (Negative); RBC,Urine 9 /hpf (0-5); Specific Gravity,Urine 1.011 (1.001-1.035); Urobilinogen,Urine <2.0 mg/dL (<2.0); WBC,Urine 11 /hpf (0-5)
--- NOTE | 2024-10-24 15:36 | HP ---
HISTORY AND PHYSICAL CHIEF COMPLAINT: Hypotension, some nausea, and cough. HISTORY OF PRESENT ILLNESS: This is an 84-year-old gentleman with a past medical history of multiple medical problems including atrial fibrillation, asthma, is complaining of some cough and some nausea. The patient was noted to have hypotension. The patient was sent to [facility] after IV fluids. The patient's blood pressure is improved. No chest pain. No palpitation. The patient has some mild pancytopenia. The troponin was found to be elevated to 0.040. Also, the patient was admitted for further evaluation and treatment. The chest x-ray, which I reviewed, showed only chronic changes. There is no history of any fever, rigors, or chills. PAST MEDICAL HISTORY: Reviewed, include atrial fibrillation, asthma, rest of the chart is also reviewed. HOME MEDICATIONS: Not confirmed yet, include diltiazem, dose and rest of medications reviewed. ALLERGIES: Sulfa. FAMILY HISTORY: No history of heart disease or strokes in the family. SOCIAL HISTORY: Occasional alcohol. REVIEW OF SYSTEMS: A 14-point review of systems negative except as mentioned earlier. PHYSICAL EXAMINATION: VITAL SIGNS: Pulse 71, blood pressure 140/60, and respirations 15. HEENT: Conjunctivae are normal. CARDIOVASCULAR: S1, S2. RESPIRATIONS: Few scattered rhonchi. ABDOMEN: Soft. NERVOUS SYSTEM: Nonfocal. LABORATORY DATA: Noted. ASSESSMENT: 1. Hypotension for evaluation possible dehydration, rule out coronary artery disease. 2. Troponin elevated to 0.040 possible acute [id number] elevation myocardial infarction. 3. Hyponatremia. 4. Hypokalemia. 5. Mild pancytopenia of undetermined etiology. 6. History of atrial fibrillation. 7. History of asthma. 9. Hyperlipidemia. 10.Multiple complex medical issues. RECOMMENDATION: This is an 84-year-old gentleman presented with multiple complex medical issues. We will monitor the patient closely. Continue current management and continue symptomatic treatment. Continue with IV fluids cautiously. Otherwise, I would recommend Cardiology consultation, 2D echo, and repeat labs testing. We will resume the home medications except antihypertension medications, continue to monitor. We will add Protonix to the current regimen. Guarded prognosis. Multiple complex medical issues. Further recommendations to follow. MMODL / IJN: [id number] / [facility]ENTERPhilip
[2024-10-24] MEDS: POTASSIUM CHLORIDE ER 20 MEQ TAB.ER PO SCH (16:39)
[2024-10-24] MEDS: ASPIRIN 81 MG PO SCH (16:39)
[2024-10-24] MEDS: METOPROLOL TARTRATE 25 MG TAB PO SCH (16:40)
[2024-10-24] MEDS: GABAPENTIN 300 MG CAP PO SCH (16:40)
[2024-10-24] MEDS: ATORVASTATIN 40 MG TAB PO SCH (17:22)
[2024-10-24] MEDS: DILTIAZEM CD 120 MG CAP.ER.24H PO SCH (17:22)
[2024-10-24 18:57] LABS: RSV Not Detected (Not Detectd)
[2024-10-24] MEDS: RIVAROXABAN 15 MG TAB PO SCH (20:59)
[2024-10-24 23:19] VITALS: RESP 16
[2024-10-25] MEDS: SENNOSIDES 8.6 MG TAB PO SCH (01:39)
[2024-10-25] MEDS: ISOSORBIDE MONONITRATE ER 30 MG TAB.ER.24H PO SCH (08:49)
[2024-10-25] MEDS: TAMSULOSIN 0.4 MG CAP.ER.24H PO SCH (08:49)
[2024-10-25 12:02] LABS: Basophils # (A) 0.02 X 10*3/uL (0.00-0.10); Basophils % (A) 0.7 %; Eosinophils # (A) 0.03 X 10*3/uL (0.04-0.35); Eosinophils % (A) 1.1 %; HCT 36.8 % (39.6-50.0); HGB 11.8 g/dL (13.0-17.0); Immature Grans, Automated 0.40 %; Lymphocytes # (A) 0.57 X 10*3/uL (0.90-5.00); Lymphocytes % (A) 21.2 %; MCH 30.8 pg (27.0-32.0); MCHC 32.1 g/dL (32.0-37.0); MCV 96.1 FL (80.0-97.0); Monocytes # (A) 0.41 X 10*3/uL (0.20-1.00); Monocytes % (A) 15.2 %; NRBC Per 100 WBC 0 X 10*3/uL (0.00-0.01); Neutrophils # (A) 1.65 X 10*3/uL (1.80-7.70); Neutrophils % (A) 61.4 %; Platelet Count 150 X 10*3/uL (140-440); RBC 3.83 X 10*6/uL (4.40-5.60); RDW 17.1 % (11.5-14.5); WBC 2.69 X 10*3/uL (4.50-10.00)
[2024-10-25 12:57] LABS: Anion Gap 11.00 mmol/L (4.00-12.00); BUN/Creat Ratio 11.67 Ratio (12.00-20.00); Blood Urea Nitrogen 10.5 mg/dL (9.0-27.0); Calcium 8.3 mg/dL (8.7-10.3); Carbon Dioxide 20.0 mmol/L (21.6-31.8); Chloride 109 mmol/L (96-109); Glucose 85 mg/dL (70-110); Potassium 3.9 mmol/L (3.5-5.5); Sodium 140 mmol/L (135-145)
--- NOTE | 2024-10-25 13:06 | P.CRDCN ---
History of Present Illness History of present illness: HISTORY OF PRESENT ILLNESS: This is a 84-year-old male with a past medical history significant for paroxysmal atrial fibrillation, hypertension, hyperlipidemia, and coronary artery disease. Patient follows in the office with Dr. Chapman. We have been asked to see the patient in consultation for hypotension. Patient examined at the bedside. Patient is currently at [facility] for rehab. Patient was found to have low blood pressures and was sent to the hospital for further evaluation. The patient denied having any chest pain or pressure. He denied any shortness of breath. Blood pressure was found to be in the 80s upon arrival. Patient apparently has not been eating or drinking well at [facility]. His blood pressures have normalized this morning. DIAGNOSTICS: - EKG reveals sinus mechanism with no signs of acute ischemia. - Chest xray chronic changes without acute pulmonary process. No significant change from prior - Laboratory data: WBC 2.68. Hemoglobin 11.8. Platelet count 150. Sodium 140. Potassium 3.9. BUN 10. Creatinine 0.9. Troponin 0.039. 0.040. - Current home cardiac medications include Xarelto 15 mg at night, metoprolol tartrate 25 mg daily, Cardizem CD1 120 mg daily, Imdur 30 mg daily, Lipitor 40 mg daily, aspirin 81 mg daily. - Most recent echocardiogram obtained in September 2024 revealing ejection fraction 55%, mild concentric LVH, no obvious regional wall motion abnormalities and no significant valvular dysfunction - Cardiac catheterization history: September 2024 revealing 60% stenosis of the circumflex. Medical management was recommended REVIEW OF SYSTEMS: At the time of my exam: CONSTITUTIONAL: Denies fever or chills. HEENT: Denies blurred vision, vision changes, or eye pain. Denies hemoptysis CARDIOVASCULAR: Denies chest pain. Denies orthopnea. Denies PND. Denies palpitations RESPIRATORY: Denies shortness of breath. GASTROINTESTINAL: Denies abdominal pain. Denies nausea or vomiting. HEMATOLOGIC: Denies bleeding disorders. GENITOURINARY: Denies any blood in urine. SKIN: Denies pruitis. Denies rash. PHYSICAL EXAM: VITAL SIGNS: Reviewed. GENERAL: Well-developed in no acute distress. HEENT: Head is normocephalic. Pupils are equal, round. Sclerae anicteric. Mucous membranes of the mouth are moist. Neck supple. No JVD or thyromegaly LUNGS: Respirations even and unlabored. Lungs essentially clear to auscultation bilaterally. HEART: Regular rate and rhythm. S1 and S2 heard. ABDOMEN: Soft. Nondistended. Nontender. EXTREMITIES: Normal range of motion. No clubbing or cyanosis. Peripheral pulses intact. No lower extremity edema NEUROLOGIC: Awake and alert. Oriented x 3. ASSESSMENT: Hypotension, resolved Coronary artery disease with 60% stenosis of the circumflex, medical management recommended Paroxysmal atrial fibrillation History of hypertension History of hyperlipidemia PLAN: No need to obtain echocardiogram as this was performed in September 2024 Continue home cardiac medications Patient is stable for discharge back to [facility] today from a cardiac standpoint We will sign off. Please reconsult if needed. Nurse practitioner note has been reviewed by physician. Signing provider agrees with the documented findings, assessment, and plan of care documented by KAIAWHINA KURA KAUPAPA MAORI as a scribe. 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 BPH. has cpap not wearing right now. History of Any Multi-Drug Resistant Organisms: None Reported Past Surgical History: Hernia Repair Additional Past Surgical History / Comment(s): BILATERAL INGUINAL. cyst removed left testicle, juice cataracts, laser rt eye, pain clinic Past Anesthesia/Blood Transfusion Reactions: No Reported Reaction Past Psychological History: No Psychological Hx Reported Smoking Status: Former smoker Past Alcohol Use History: Occasional Additional Past Alcohol Use History / Comment(s): quit smoking 2001, smoked for 40 yrs, 1 PPD Past Drug Use History: None Reported - Past Family History Mother Family Medical History: No Reported History Father Family Medical History: Myocardial Infarction ([place]) Medications and Allergies Home Medications Medication Instructions Recorded Confirmed Type Alfuzosin HCl [Uroxatral ER] 10 mg PO BID 01/13/17 10/24/24 History OXcarbazepine [Trileptal] 300 mg PO DAILY 01/13/17 10/24/24 History Amiodarone [Cordarone] 200 mg PO TID #0 tab 10/03/24 10/24/24 Rx Aspirin 81 mg PO DAILY tab 10/03/24 10/24/24 Rx Isosorbide Mononitrate ER [Imdur] 30 mg PO DAILY tab 10/03/24 10/24/24 Rx Acetaminophen [Tylenol] 650 mg PO Q6H PRN 10/08/24 10/24/24 History Atorvastatin [Lipitor] 40 mg PO DAILY 10/08/24 10/24/24 History Ergocalciferol [Vitamin D2 (1250 1,250 mcg PO FR 10/08/24 10/24/24 History Mcg = 11458 Iu)] Gabapentin 300 mg PO DAILY 10/08/24 10/24/24 History Lidocaine 5% Patch [Lidoderm] 1 patch TRANSDERM Q24H PRN 10/08/24 10/24/24 History Nitroglycerin Sl Tabs [Nitrostat] 0.4 mg SL Q5M PRN 10/08/24 10/24/24 History Rivaroxaban [Xarelto] 15 mg PO HS 10/08/24 10/24/24 History dilTIAZem HCL 120 mg PO DAILY 10/08/24 10/24/24 History HYDROcodone/APAP 5-325MG [[place] 1 tab PO Q6H PRN 10/24/24 10/24/24 History 5-325] Hydrocodone/Acetaminophen [[place] 1 tab PO Q6H PRN 10/24/24 10/24/24 History 2.5-325] Lidocaine 4% Patch 1 patch TOPICAL DAILY PRN 10/24/24 10/24/24 History Magnesium Hydroxide [Milk of 2,400 mg PO DAILY PRN 10/24/24 10/24/24 History Magnesia] Metoclopramide [Reglan] 10 mg PO DAILY PRN 10/24/24 10/24/24 History Metoprolol Tartrate [Lopressor] 25 mg PO DAILY 10/24/24 10/24/24 History Sennosides [Senokot] 8.6 mg PO BID 10/24/24 10/24/24 History Allergies Allergy/AdvReac Type Severity Reaction Status Date / Time Sulfa (Sulfonamide Allergy Dyspnea Verified 10/24/24 13:29 Antibiotics) Physical Exam Vitals: Vital Signs Temp Pulse Pulse Resp BP Pulse Ox 10/25/24 07:27 97.8 F 68 16 174/87 98 10/25/24 02:05 97.4 F L 70 16 182/86 97 10/24/24 18:54 98.0 F 63 16 171/87 96 10/24/24 14:10 98.1 F 75 17 140/83 95 10/24/24 14:00 17 Intake and Output 10/24/24 10/25/24 10/25/24 22:59 06:59 14:59 Intake Total 236 240 Output Total 290 240 Balance -54 0 Intake: Oral 236 240 Output: Urine 290 240 Other: # Voids 2 Results 10/25/24 06:21 10/25/24 06:21 CBC 10/25/24 Range/Units 06:21 WBC 2.69 L (4.50-10.00) X 10*3/uL RBC 3.83 L (4.40-5.60) X 10*6/uL Hgb 11.8 L (13.0-17.0) g/dL Hct 36.8 L (39.6-50.0) % Plt Count 150 (140-440) X 10*3/uL Comprehensive Metabolic Panel 10/25/24 Range/Units 06:21 Sodium 140 (135-145) mmol/L Potassium 3.9 (3.5-5.5) mmol/L Chloride 109 (96-109) mmol/L Carbon Dioxide 20.0 L (21.6-31.8) mmol/L BUN 10.5 (9.0-27.0) mg/dL Creatinine 0.9 (0.6-1.5) mg/dL Glucose 85 (70-110) mg/dL Calcium 8.3 L (8.7-10.3) mg/dL Current Medications Generic Name Dose Route Start Last Admin Trade Name Freq PRN Reason Stop Dose Admin Acetaminophen 650 mg 10/24/24 14:08 Acetaminophen Tab 325 Mg Tab PO Q6H PRN Pain Hydrocodone Bitart/Acetaminophen 0.5 each 10/24/24 14:08 Hydrocodone/Apap 5-325mg 1 Each Tab PO Q6H PRN Pain Hydrocodone Bitart/Acetaminophen 1 each 10/24/24 14:08 Hydrocodone/Apap 5-325mg 1 Each Tab PO Q6H PRN Pain Aspirin 81 mg 10/24/24 14:15 10/25/24 08:49 Aspirin 81 Mg PO 81 mg DAILY SAMIR Administration Atorvastatin Calcium 40 mg 10/24/24 14:15 10/25/24 08:49 Atorvastatin 40 Mg Tab PO 40 mg DAILY SAMIR Administration Diltiazem HCl 120 mg 10/24/24 15:00 10/25/24 08:49 Diltiazem Cd 120 Mg Cap.Er.24h PO 120 mg DAILY SAMIR Administration Ergocalciferol 1,250 mcg 10/26/24 09:00 Ergocalciferol 1,250 Mcg (50,000 Iu) Capsule PO FR SAMIR Gabapentin 300 mg 10/24/24 14:15 10/25/24 08:49 Gabapentin 300 Mg Cap PO 300 mg DAILY SAMIR Administration Sodium Chloride 1,000 mls @ 75 mls/hr 10/23/24 19:45 10/25/24 01:44 Saline 0.9% IV 75 mls/hr .[id number] SAMIR Administration Isosorbide Mononitrate 30 mg 10/25/24 09:00 10/25/24 08:49 Isosorbide Mononitrate Er 30 Mg Tab.Er.24h PO 30 mg DAILY SAMIR Administration Lidocaine 1 patch 10/24/24 14:08 Lidocaine 4% Patch TOPICAL DAILY PRN LOW BACK Protocol Magnesium Hydroxide 2,400 mg 10/24/24 14:08 Magnesium Hydroxide 2,400 Mg/30 Ml Cup PO DAILY PRN Constipation Metoclopramide HCl 10 mg 10/24/24 14:08 Metoclopramide 10 Mg Tab PO DAILY PRN Nausea Metoprolol Tartrate 25 mg 10/24/24 14:15 10/25/24 08:49 Metoprolol Tartrate 25 Mg Tab PO 25 mg DAILY SAMIR Administration Miscellaneous Information 1 each 10/24/24 14:11 Potassium Replacement Protocol 1 Each Misc MISCELLANE DAILY PRN Per Protocol Protocol Naloxone HCl 0.2 mg 10/23/24 21:06 Naloxone 0.4 Mg/Ml 1 Ml Vial IV Q2M PRN Opioid Reversal Nitroglycerin 0.4 mg 10/24/24 14:08 Nitroglycerin Sl Tabs 0.4 Mg Tab SUBLINGUAL Q5M PRN Chest Pain Oxcarbazepine 300 mg 10/24/24 14:15 10/25/24 08:49 Oxcarbazepine 300 Mg Tab PO 300 mg DAILY SAMIR Administration Rivaroxaban 15 mg 10/24/24 21:00 10/24/24 20:59 Rivaroxaban 15 Mg Tab PO 15 mg HS SAMIR Administration Protocol Senna 8.6 mg 10/24/24 21:00 07/03/25 08:50 Sennosides 8.6 Mg Tab PO Not Given BID SAMIR Tamsulosin HCl 0.4 mg 10/25/24 09:00 10/25/24 08:49 Tamsulosin 0.4 Mg Cap.Er.24h PO 0.4 mg DAILY SAMIR Administration Intake and Output 10/24/24 10/25/24 10/25/24 22:59 06:59 14:59 Intake Total 236 240 Output Total 290 240 Balance -54 0 Intake: Oral 236 240 Output: Urine 290 240 Other: # Voids 2 10/25/24 06:21 10/25/24 06:21
--- NOTE | 2024-10-25 15:36 | P.DS ---
Providers Date of admission: 10/23/24 21:07 Expected date of discharge: 10/25/24 Attending physician: Theo Jackson MD Primary care physician: Amy Dawson Hospital Course: Final diagnosis Hypotension likely secondary to dehydration, ruled out coronary artery disease Troponin elevated 0.040, acute NSTEMI ruled out per cardiology Hyponatremia, improved Hypokalemia, improved after replacement Mild pancytopenia of undetermined etiology History of atrial fibrillation, currently rate controlled Hyperlipidemia History of asthma with no exacerbation GI prophylaxis DVT prophylaxis No code Discharge disposition Patient is being discharged in a stable condition with guarded prognosis to [facility]. Patient will follow-up with Dr. dawson in the outpatient setting upon discharge. Patient is to continue with current medications as prescribed and outpatient follow-up with cardiology as scheduled. Total time taken is greater than 35 minutes. Hospital course This is a 84-year-old male who was recently admitted with hypotension being closely monitored and evaluated by cardiology with no interventions plans recommending to continue with current medications and outpatient follow-up as needed. Patient's blood pressure medication to continue as prescribed. Patient has been cleared by cardiology for discharge to [facility]. Currently no reports of chest pain, shortness of breath, or palpitations. Patient is afebrile. No reports of nausea or vomiting and patient is tolerating diet. Patient will be going to [facility] today. Guarded prognosis and high risk for readmissions given significant comorbidities Physical exam: Gen: This is a 84-year-old male who is awake, alert and oriented x 2, baseline, well-developed, elderly appearing HEENT: Head is atraumatic, normocephalic. Pupils equal, round. Sclerae is anicteric. NECK: Supple. No JVD. No lymphadenopathy. No thyromegaly. LUNGS: Diminished breath sounds bilaterally otherwise clear to auscultation. No wheezes or rhonchi. No intercostal retractions. HEART: S1, S2 are muffled ABDOMEN: Soft. Bowel sounds are present. No masses. No tenderness. EXTREMITIES: No pedal edema. No calf tenderness. NEUROLOGICAL: Patient is awake, alert and oriented x 2. Cranial nerves 2 through 12 are grossly intact. Diffusely weak Please refer to medication reconciliation sheet for a list of medications. The impression and plan of care has been dictated by Shereen Vogel, Nurse Practitioner as directed. Dr. Kenneth MD I have performed a history and examination and MDM of this patient, discussed the same with the dictator, and agree with the dictator's assessment and plan as written ,documented as a scribe. Based on total visit time, I have performed more than 50% of the visit. Patient Condition at Discharge: Fair Plan - Discharge Summary New Discharge Prescriptions: Continue OXcarbazepine [Trileptal] 300 mg PO DAILY Alfuzosin HCl [Uroxatral ER] 10 mg PO BID Aspirin 81 mg PO DAILY tab Lidocaine 5% Patch [Lidoderm 5% Patch] 1 patch TRANSDERM Q24H PRN PRN Reason: neck pain Ergocalciferol [Vitamin D2 (1250 Mcg = 07203 Iu)] 1,250 mcg PO FR dilTIAZem HCL 120 mg PO DAILY Acetaminophen [Tylenol] 650 mg PO Q6H PRN PRN Reason: Pain Rivaroxaban [Xarelto] 15 mg PO HS Sennosides [Senokot] 8.6 mg PO BID Metoclopramide [Reglan] 10 mg PO DAILY PRN PRN Reason: Nausea Lidocaine 4% Patch 1 patch TOPICAL DAILY PRN PRN Reason: LOW BACK Isosorbide Mononitrate ER [Imdur] 30 mg PO DAILY tab Gabapentin 300 mg PO DAILY Nitroglycerin Sl Tabs [Nitrostat] 0.4 mg SL Q5M PRN PRN Reason: Chest Pain Atorvastatin [Lipitor] 40 mg PO DAILY Metoprolol Tartrate [Lopressor] 25 mg PO DAILY Magnesium Hydroxide [Milk of Magnesia] 2,400 mg PO DAILY PRN PRN Reason: Constipation Discontinued HYDROcodone/APAP 5-325MG [Milton 5-325] 1 tab PO Q6H PRN PRN Reason: Pain Amiodarone [Cordarone] 200 mg PO TID #0 tab Hydrocodone/Acetaminophen [Milton 2.5-325] 1 tab PO Q6H PRN PRN Reason: Pain Discharge Medication List Alfuzosin HCl [Uroxatral ER] 10 mg PO BID 01/13/17 [History] OXcarbazepine [Trileptal] 300 mg PO DAILY 01/13/17 [History] Aspirin 81 mg PO DAILY tab 10/03/24 [Rx] Isosorbide Mononitrate ER [Imdur] 30 mg PO DAILY tab 10/03/24 [Rx] Acetaminophen [Tylenol] 650 mg PO Q6H PRN 10/08/24 [History] Atorvastatin [Lipitor] 40 mg PO DAILY 10/08/24 [History] Ergocalciferol [Vitamin D2 (1250 Mcg = 43470 Iu)] 1,250 mcg PO FR 10/08/24 [History] Gabapentin 300 mg PO DAILY 10/08/24 [History] Lidocaine 5% Patch [Lidoderm 5% Patch] 1 patch TRANSDERM Q24H PRN 10/08/24 [History] Nitroglycerin Sl Tabs [Nitrostat] 0.4 mg SL Q5M PRN 10/08/24 [History] Rivaroxaban [Xarelto] 15 mg PO HS 10/08/24 [History] dilTIAZem HCL 120 mg PO DAILY 10/08/24 [History] Lidocaine 4% Patch 1 patch TOPICAL DAILY PRN 10/24/24 [History] Magnesium Hydroxide [Milk of Magnesia] 2,400 mg PO DAILY PRN 10/24/24 [History] Metoclopramide [Reglan] 10 mg PO DAILY PRN 10/24/24 [History] Metoprolol Tartrate [Lopressor] 25 mg PO DAILY 10/24/24 [History] Sennosides [Senokot] 8.6 mg PO BID 10/24/24 [History] Follow up Appointment(s)/Referral(s): Amy Dawson DO [Primary Care Provider] - 1-2 days Discharge Disposition: TRANSFER TO SNF/ECF
[2024-10-25 15:44] VITALS: BP 90/51; PULSE 65; TEMP 98.1
[2024-10-26] MEDS ORDERED: ERGOCALCIFEROL 1,250 MCG (50,000 IU) CAPSULE PO SCH (09:00)
== END 2024-10-25 17:53 ==
LOC: EC 18:39 → SUPCPDRO 18:39 → 6NMEDSUR 21:07
PROVIDERS: ADMIT Internal Medicine; ATTEND Internal Medicine
DX: I95.9 Hypotension, unspecified (principal); E87.1 Hypo-osmolality and hyponatremia; E87.6 Hypokalemia; R79.89 Other specified abnormal findings of blood chemistry; I48.0 Paroxysmal atrial fibrillation; D61.818 Other pancytopenia; E86.0 Dehydration; E78.5 Hyperlipidemia, unspecified; I10 Essential (primary) hypertension; I25.10 Atherosclerotic heart disease of native coronary artery without angina pectoris; J45.909 Unspecified asthma, uncomplicated; Z79.01 Long term (current) use of anticoagulants; Z79.82 Long term (current) use of aspirin; Z79.899 Other long term (current) drug therapy; Z88.2 Allergy status to sulfonamides; Z87.891 Personal history of nicotine dependence
CPT/HCPCS: 96360; 96361 ×2; 99285; 36415; 93005; 80053 ×2; 80048; 83605; 83735; 84484 ×2; 85025 ×3; 85610; 85730; 81001; 87086; 87077; 87186; 87636; 71046; G0378 ×3

== ENCOUNTER 2024-11-07 19:21 | Emergency (ER) | payer MEDICARE ==
--- NOTE | 2024-11-07 20:04 | ED ---
Fall HPI - General Chief Complaint: Fall Stated Complaint: Fall Time Seen by Provider: 11/07/24 19:26 Source: patient, EMS, RN notes reviewed Mode of arrival: EMS Limitations: no limitations - History of Present Illness Initial Comments: This is a 84-year-old male who presents to the emergency department for a fall. Patient lives at [facility]. He reportedly stepped on his pants, causing him to trip and fall. States that he hit the front of his face. Denies any loss of consciousness. Not taking any blood thinners. He has some nausea associated with a headache. Denies having pain elsewhere. Denies any pain in his bilateral upper or lower extremities or abdomen. MD Complaint: fall - Related Data Home Medications Medication Instructions Recorded Confirmed Alfuzosin HCl [Uroxatral ER] 10 mg PO BID 01/13/17 10/24/24 OXcarbazepine [Trileptal] 300 mg PO DAILY 01/13/17 10/24/24 Acetaminophen [Tylenol] 650 mg PO Q6H PRN 10/08/24 10/24/24 Atorvastatin [Lipitor] 40 mg PO DAILY 10/08/24 10/24/24 Ergocalciferol [Vitamin D2 (1250 1,250 mcg PO FR 10/08/24 10/24/24 Mcg = 07372 Iu)] Gabapentin 300 mg PO DAILY 10/08/24 10/24/24 Lidocaine 5% Patch [Lidoderm 5% 1 patch TRANSDERM Q24H PRN 10/08/24 10/24/24 Patch] Nitroglycerin Sl Tabs [Nitrostat] 0.4 mg SL Q5M PRN 10/08/24 10/24/24 Rivaroxaban [Xarelto] 15 mg PO HS 10/08/24 10/24/24 dilTIAZem HCL 120 mg PO DAILY 10/08/24 10/24/24 Lidocaine 4% Patch 1 patch TOPICAL DAILY PRN 10/24/24 10/24/24 Magnesium Hydroxide [Milk of 2,400 mg PO DAILY PRN 10/24/24 10/24/24 Magnesia] Metoclopramide [Reglan] 10 mg PO DAILY PRN 10/24/24 10/24/24 Metoprolol Tartrate [Lopressor] 25 mg PO DAILY 10/24/24 10/24/24 Sennosides [Senokot] 8.6 mg PO BID 10/24/24 10/24/24 Previous Rx's Medication Instructions Recorded Aspirin 81 mg PO DAILY tab 10/03/24 Isosorbide Mononitrate ER [Imdur] 30 mg PO DAILY tab 10/03/24 Allergies Allergy/AdvReac Type Severity Reaction Status Date / Time Sulfa (Sulfonamide Allergy Dyspnea Verified 11/07/24 19:32 Antibiotics) Review of Systems ROS Statement: Those systems with pertinent positive or pertinent negative responses have been documented in the HPI. ROS Other: All systems not noted in ROS Statement are negative. 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 BPH. has cpap not wearing right now. History of Any Multi-Drug Resistant Organisms: None Reported Past Surgical History: Hernia Repair Additional Past Surgical History / Comment(s): BILATERAL INGUINAL. cyst removed left testicle, juice cataracts, laser rt eye, pain clinic Past Anesthesia/Blood Transfusion Reactions: No Reported Reaction Past Psychological History: No Psychological Hx Reported Smoking Status: Former smoker Past Alcohol Use History: Occasional Past Drug Use History: None Reported - Past Family History Mother Family Medical History: No Reported History Father Family Medical History: Myocardial Infarction (VT) General Exam Limitations: no limitations General appearance: alert, in no apparent distress Head exam: Present: atraumatic, normocephalic, normal inspection Eye exam: Present: normal appearance, PERRL, EOMI. Absent: scleral icterus, conjunctival injection, periorbital swelling Respiratory exam: Present: normal lung sounds bilaterally. Absent: respiratory distress, wheezes, rales, rhonchi, stridor Cardiovascular Exam: Present: regular rate, normal rhythm GI/Abdominal exam: Present: soft. Absent: distended, tenderness Neurological exam: Present: alert, oriented X3, CN II-XII intact Psychiatric exam: Present: normal affect, normal mood Course Vital Signs 11/07/24 11/07/24 19:24 20:11 Temperature 97.7 F Pulse Rate 81 81 Respiratory 18 19 Rate Blood Pressure 130/81 140/87 O2 Sat by Pulse 97 95 Oximetry Medical Decision Making - Medical Decision Making This is an 84-year-old male who presents to the emergency department for a head injury Was pt. sent in by a medical professional or institution? @ -No Did you speak to anyone other than the patient for history? @ -No Did you review nursing and triage notes? @ -Yes, and I agree, it is accurate with regards to the patient's symptoms. Were old charts reviewed? @ -No Differential Diagnosis? @ -Differential Diagnosis Head Injury: Contusion, hematoma, intracranial hemorrhage, skull fracture, whiplash, concussion, this is not meant to be an all-inclusive list. EKG interpreted by me (3pts min.)? @ -Not obtained X-rays interpreted by me (1pt min.)? @ -Not obtained CT interpreted by me (1pt min.)? @ -Computed tomography scan of the brain and c-spine obtained. My interpretation identifies no evidence of an acute intracranial hemorrhage, skull fracture, or cervical spine fracture. CT scan of the facial bones obtained. My interpretation identifies no facial fractures. U/S interpreted by me (1pt. min.)? @ -Not obtained What testing was considered but not performed? (CT, X-rays, U/S, labs)? Why? @ -None What meds were considered but not given? Why? @ -None Did you discuss the management of the patient with other professionals? @ -No Did you reconcile home meds? @ -No Was smoking cessation discussed for >3mins.? @ -No Was critical care preformed (if so, how long)? @ -No Were there social determinants of health that impacted care today? How? (Homelessness, low income, unemployed, alcoholism, drug addiction, transportation, low edu. Level, literacy, decrease access to med. care, [place] [facility], rehab)? @ -No Was there de-escalation of care discussed even if they declined? (Discuss DNR or withdrawal of care, Hospice)? @ -No What co-morbidities impacted this encounter? (DM, HTN, Smoking, COPD, CAD, Cancer, CVA, Hep., AIDS, mental health diagnosis, sleep apnea, morbid obesity)? @ -A-fib, HTN, HLD Was patient admitted / discharged? @ -Discharged. Patient presents from [facility] for a mechanical fall from stepping on his pants. CT scan of the brain/C-spine and CT scan of the facial bones were obtained revealing no acute intracranial process or other acute abnormalities. Tylenol administered for discomfort. Patient discharged back to [facility] via EMS in stable condition. Case discussed with ED attending Dr. Webber. Return precautions reviewed in depth, the patient is instructed to return to the emergency department with any new, worsening, or concerning symptoms. Patient verbalized understanding. Undiagnosed new problem with uncertain prognosis? @ -None Drug Therapy requiring intensive monitoring for toxicity (Heparin, Nitro, Insulin, Cardizem)? @ -None Were any procedures done? @ -None Diagnosis/symptom? @ -Fall, head injury Acute, or Chronic, or Acute on Chronic? @ -Acute Uncomplicated (without systemic symptoms) or Complicated (systemic symptoms)? @ -Uncomplicated Side effects of treatment? @ -None Exacerbation, Progression, or Severe Exacerbation] @ -Not applicable Poses a threat to life or bodily function? @ -No - Radiology Data Radiology results: report reviewed, image reviewed Disposition Clinical Impression: Fall, Head injury Disposition: HOME SELF-CARE Instructions (If sedation given, give patient instructions): Fall Prevention for Older Adults (ED) Additional Instructions: Return to the emergency department with any new, worsening, or concerning symptoms. Take Tylenol as needed for any additional headaches. Follow up with your primary care provider in 1-2 days. Is patient prescribed a controlled substance at d/c from ED?: No Referrals: Rachael Reyes DO [Primary Care Provider] - 1-2 days Time of Disposition: 20:46
[2024-11-07 20:14] VITALS: RESP 19
[2024-11-07] MEDS: ACETAMINOPHEN TAB 500 MG TAB PO STA (20:14)
[2024-11-07] MEDS: ONDANSETRON ODT 4 MG TAB PO STA (20:16)
--- NOTE | 2024-11-07 20:24 | CT ---
EXAMINATION TYPE: CT brain cspine wo con DATE OF EXAM: 11/07/2024 8:19 PM COMPARISON: None. CLINICAL INDICATION: Male, 84 years old with history of Fall, head injury; Fall, head injury. Hx of s troke, pain TECHNIQUE: Brain: Multiple axial CT images of the brain were obtained without IV contrast. Cspine: Axial CT images from the skull base to the inferior aspect of T2 we obtained without intraven ous contrast. Coronal and sagittal reformatted images were also reviewed. . CT DLP: 954.9 mGycm, Automated exposure control for dose reduction was used. FINDINGS: Brain: Extra-axial spaces: No abnormal extra-axial fluid collections. Ventricular system: Within normal limits Cerebral parenchyma: Remote right parietal lobe injury No acute intraparenchymal hemorrhage or mass e ffect. The jurado-white junction is well differentiated. Cerebellum: Unremarkable. Mass effect: No evidence of midline shift. Intracranial vasculature: unremarkable Soft tissues: Normal. Calvarium/osseous structures: No depressed skull fracture. Paranasal sinuses and mastoid air cells: Clear. Visualized orbits: Bilateral aphakia Cervical spine: Fracture: None. Osseous structures: Multilevel degenerative disc disease changes with endplate spurring and disc oste ophyte complex's. Ankylosis of the lateral facets of C2 and C3 on the left. Vertebral alignment: Within normal limits. Spinal canal/Neural Foramina: No evidence of significant spinal canal narrowing. No evidence for sign ificant neural foraminal stenosis. Neck soft tissues: Prevertebral soft tissues are within normal limits. Other: The airway is patent. The lung apices are clear. IMPRESSION: 1. No acute intracranial process. 2. Remote right parietal region injury. 3. Nonspecific white matter changes, likely secondary to chronic small vessel ischemic disease. 4. No evidence of cervical spine fracture. 5. Mild multilevel degenerative disc disease. [facility], , 11/07/2024 8:22 PM
--- NOTE | 2024-11-07 20:34 | CT ---
EXAMINATION TYPE: CT facial bones wo con DATE OF EXAM: 11/07/2024 8:18 PM COMPARISON: None. CLINICAL INDICATION: Male, 84 years old with history of Fall, head injury; PHH, Fall, head injury. Hx of stroke TECHNIQUE: Multiple unenhanced axial CT images were obtained of the facial bones soft tissue and bone windows. Coronal, axial and sagittal reformatted images were also provided in soft tissue and bone windows and submitted for interpretation. Additional 3-D reformatted images were obtained on a [employer] workstation. . Contrast used: mL of , (none if empty) Oral contrast used: (none if empty) CT DLP: 954.9 mGycm, Automated exposure control for dose reduction was used. FINDINGS: There is no evidence of fracture, subluxation, dislocation, or significant soft tissue swelling.The t emporal-mandibular joints appear symmetric. Mild to moderate paranasal sinus disease throughout. Left linares deviated nasal septum is left orbit osseous spurring. There is mild to moderate mucosal thickeni ng of the turbinates. Calcifications of the greater bifurcations. Bilaterally aphakia. IMPRESSION: 1. No evidence of facial fracture. 2. Mild to moderate paranasal sinus disease. 3. Leftward deviated nasal septum. [facility], , 11/07/2024 8:32 PM
[2024-11-07 22:26] VITALS: BP 100/67; PULSE 78; TEMP 98
== END 2024-11-07 22:54 | disposition home or self-care (01) ==
LOC: EC 19:21
DX: S09.90XA Unspecified injury of head, initial encounter (principal); I48.91 Unspecified atrial fibrillation; I10 Essential (primary) hypertension; E78.5 Hyperlipidemia, unspecified; Z86.73 Personal history of transient ischemic attack (TIA), and cerebral infarction without residual deficits; Z87.891 Personal history of nicotine dependence; Z88.2 Allergy status to sulfonamides; W01.0XXA Fall on same level from slipping, tripping and stumbling without subsequent striking against object, initial encounter
CPT/HCPCS: 70450; 70486; 72125; 99284